=== PATIENT | female | born 1935 | race Caucasian/White ===

== ENCOUNTER → 2017-06-11 | Outpatient (CLI) | payer MEDICARE, BC ==
--- NOTE | 2017-06-11 10:17 | US ---
EXAMINATION TYPE: US venous doppler duplex LE RT DATE OF EXAM: 06/11/2017 10:01 AM COMPARISON: NONE CLINICAL HISTORY: Pain in Lower Limb M79.604. SIDE PERFORMED: Right TECHNIQUE: The lower extremity deep venous system is examined utilizing real time linear array sonog lisa with graded compression, doppler sonography and color-flow sonography. VESSELS IMAGED: External Iliac Vein (EIV) Common Femoral Vein Deep Femoral Vein Greater Saphenous Vein * Femoral Vein Popliteal Vein Small Saphenous Vein * Proximal Calf Veins (* superficial vessels) Right Leg: Negative for DVT,prominent superficial medial calf veins IMPRESSION: Grayscale, color doppler, spectral doppler imaging performed of the deep veins of the lo wer extremities. There is normal flow, compressibility, vascular waveforms. No evident deep venous thrombosis at or above the right knee. Varicose veins noted incidentally in the calf with possible th rombosis, question superficial venous thrombosis
[2017-06-11 10:42] LABS: CHCM 33.2; HCT 41.6 % (34.0-46.0); HDW 2.36; HGB 13.6 gm/dL (11.4-16.0); MCH 31.6 pg (25.0-35.0); MCHC 32.7 g/dL (31.0-37.0); MCV 96.9 fL (80.0-100.0); Mean Platelet Volume 7.7; RDW 13.8 % (11.5-15.5); WBC 7.4 k/uL (3.8-10.6)
[2017-06-11 10:55] LABS: ALT 35 U/L (9-52); AST 36 U/L (14-36); Alkaline Phosphatase 160 U/L (38-126); Anion Gap 11 mmol/L; Blood Urea Nitrogen 26 mg/dL (7-17); Calcium 9.9 mg/dL (8.4-10.2); Carbon Dioxide 26 mmol/L (22-30); Chloride 106 mmol/L (98-107); Cholesterol 126 mg/dL (<200); Glucose 99 mg/dL (74-99); HDL Cholesterol 46 mg/dL (40-60); Non-African American GFR(MDRD) 60 (>60 ml/min/1.73 sqM); Potassium 4.1 mmol/L (3.5-5.1); Sodium 143 mmol/L (137-145); Total Bilirubin 1.1 mg/dL (0.2-1.3); Total Protein 7.9 g/dL (6.3-8.2)
[2017-06-11 10:59] LABS: INR 2.2 (<1.2); Prothrombin Time 21.2 sec (9.0-12.0)
== END | disposition home or self-care (01) ==
LOC: RADUSWWP 09:31
PROVIDERS: ATTEND Family Medicine
DX: M79.604 Pain in right leg (principal); I48.2 Chronic atrial fibrillation; I10 Essential (primary) hypertension
CPT/HCPCS: 36415; 80053; 80061; 82306; 84439; 84443; 85027; 85610

== ENCOUNTER → 2018-04-29 | Outpatient (CLI) | payer MEDICARE, BC ==
[2018-04-29 16:47] LABS: HCT 39.3 % (34.0-46.0); HGB 12.7 gm/dL (11.4-16.0); MCH 30.8 pg (25.0-35.0); MCHC 32.5 g/dL (31.0-37.0); MCV 94.7 fL (80.0-100.0); Mean Platelet Volume 7.2; Platelet Count 207 k/uL (150-450); RBC 4.14 m/uL (3.80-5.40); RDW 13.2 % (11.5-15.5); WBC 6.6 k/uL (3.8-10.6)
== END | disposition home or self-care (01) ==
LOC: LABPAT 15:06
PROVIDERS: ATTEND Internal Medicine Cardiovascular Disease
DX: Z01.812 Encounter for preprocedural laboratory examination (principal); I48.91 Unspecified atrial fibrillation; I10 Essential (primary) hypertension; Z79.01 Long term (current) use of anticoagulants; Z79.899 Other long term (current) drug therapy; Z45.010 Encounter for checking and testing of cardiac pacemaker pulse generator [battery]
CPT/HCPCS: 36415; 80051; 82565; 82947; 84520; 85027

== ENCOUNTER → 2018-05-05 | Day surgery (SDC) | payer MEDICARE, BC ==
[2018-04-29 12:17] VITALS: BMI 26.4
[~2018-05-05] MED LIST: ACETAMINOPHEN TAB 325 MG TAB PO PRN; HYDROcodone/APAP 5-325MG 1 EACH TAB PO PRN; LIDOCAINE 1% (PF) 10MG/ML VIAL SQ ONE; SODIUM CHLORIDE 0.9% 1,000 ML IV SCH; ceFAZolin 1,000 MG in SODIUM CHLORIDE 0.9% IRRIGATIO 250 ML IRRIGATION ONE; ceFAZolin IN SWFI 2 GM/20 ML SYRINGE IVP ONE; fentaNYL (PF) 50 MCG/ML 2 ML AMP IVP ONE
[2018-05-05 06:50] VITALS: TEMP 97.7
[2018-05-05 07:08] LABS: INR 1.4 (<1.2); Prothrombin Time 13.4 sec (9.0-12.0)
--- NOTE | 2018-05-05 08:39 | P.PCN ---
Date of Procedure: 05/05/18 Preoperative Diagnosis: History of permanent pacemaker. Battery depletion Postoperative Diagnosis: The same Procedure(s) Performed: Replacement of the pulse generator Description of Procedure: HISTORY: This is a 82-year-old female with history of mitral and tricuspid valve repair, sick sinus syndrome status post permanent pacemaker implantation who has reached [facility]. Patient is advised to have battery replacement. CONSENT: I have discussed the risks and benefits as related to the above mentioned procedure and both sedation/analgesia as well as necessary blood product administration. The patient has indicated understanding and acceptance of the risks of the procedure discussed. PROCEDURE: Patient was brought to the lab in a fasting state. Patient was given IV Versed and fentanyl for sedation. The skin over the existing pulse generator was infiltrated with lidocaine. An incision was made in the skin and was deepened until the pectoral fascia was exposed. Hemostasis was obtained. The existing pulse generator was pulled out of the pocket. The leads were disconnected and were checked for thresholds. Conscious Sedation: Versed 0mg Fentanyl 12.5 g Duration 22 minutes THRESHOLDS: ATRIAL: Patient is in atrial fibrillation. Threshold could not be obtained VENTRICULAR: The minimal patient threshold is 0.9 V at pulse width of 0.4. The impedance is 489. The R-wave is 10.8 . THE LEADS: ATRIAL: This is manufactured by [employer]. Model number is 4135. Serial number is [id number]. VENTRICULAR: This is manufactured by [employer]. The model number is 4136. The serial number is [id number]. THE EXPLANTED DEVICE: This is manufactured by [employer]. The model number is [id number] and the serial number is [id number]. THE NEW DEVICE: This is manufactured by [employer]. Model number is [id number] and the serial number is [id number] The leads were then connected to a new pulse generator. Pacemaker seems to function normally. The pocket was irrigated with antibiotics. The pocket was closed in the usual fashion. Pectoral fascia was closed with 2-0 Prolene, the subcutaneous tissue was closed with 3-0 Prolene and the skin was closed with 4- 0 Prolene. Patient tolerated the procedure well . Patient will be monitored on the telemetry unit for 2-3 hours. If stable patient be discharged home later today. PLAN: Continue monitoring her. If stable, patient could be discharged home in about 24 hours. Prophylactic antibiotics to be continued. FALLOW UP: Follow-up with Dr. Duncan in one week.
[2018-05-05 10:12] VITALS: RESP 18
[2018-05-05 11:03] VITALS: BP 133/60; PULSE 61
== END | disposition home or self-care (01) ==
LOC: CATHEP 06:30
PROVIDERS: ATTEND Internal Medicine Cardiovascular Disease
DX: I49.5 Sick sinus syndrome (principal); Z45.010 Encounter for checking and testing of cardiac pacemaker pulse generator [battery]; I48.2 Chronic atrial fibrillation; I34.0 Nonrheumatic mitral (valve) insufficiency; I35.1 Nonrheumatic aortic (valve) insufficiency; Z79.01 Long term (current) use of anticoagulants; Z79.899 Other long term (current) drug therapy; Z88.6 Allergy status to analgesic agent; Z88.2 Allergy status to sulfonamides
CPT/HCPCS: 33228; 85610; C1785; J3010; J2001; J0690

== ENCOUNTER → 2018-07-17 | Outpatient (CLI) | payer MEDICARE, BC ==
[2018-07-17 11:14] LABS: HCT 39.9 % (34.0-46.0); HGB 13.3 gm/dL (11.4-16.0); MCH 31.7 pg (25.0-35.0); MCHC 33.3 g/dL (31.0-37.0); Mean Platelet Volume 7.3; Platelet Count 196 k/uL (150-450); RDW 12.7 % (11.5-15.5); WBC 6.4 k/uL (3.8-10.6)
[2018-07-17 11:21] LABS: Potassium 4.5 mmol/L (3.5-5.1)
--- NOTE | 2018-07-17 11:50 | XR ---
EXAMINATION TYPE: XR chest 2V DATE OF EXAM: 07/17/2018 COMPARISON: Prior chest x-ray March 30, 2010. HISTORY: History of open heart surgery with shortness of breath for one week. TECHNIQUE: Frontal and lateral views of the chest are obtained. FINDINGS: The osseous structures are demineralized. Dextroconvex scoliosis centered in the upper lum bar spine is seen. Overlying sternal wires are redemonstrated. There are 2 metallic cardiac valvular rings that are redemonstrated. There is persistent cardiomegaly with atherosclerotic thoracic aorta. There is chronic parenchymal change with small right pleural effusion redemonstrated. There is right basilar atelectasis and/or infiltrate. Left lung is clear. IMPRESSION: Chronic changes and cardiomegaly with small right pleural effusion and right basilar ate lectasis and/or infiltrate noted.
== END | disposition home or self-care (01) ==
LOC: LABWHC1 10:03
PROVIDERS: ATTEND Internal Medicine Cardiovascular Disease
DX: J90 Pleural effusion, not elsewhere classified (principal); I51.7 Cardiomegaly; R06.02 Shortness of breath; J98.11 Atelectasis; R91.8 Other nonspecific abnormal finding of lung field
CPT/HCPCS: 36415; 71046; 80051; 82565; 83880; 84520; 85027

== ENCOUNTER 2022-02-19 09:39 | Inpatient (IN) | payer MEDICARE, BC ==
[2022-02-19] MEDS ORDERED: SODIUM CHLORIDE 0.9% 500 ML 500 ML IV STA (10:14)
--- NOTE | 2022-02-19 10:27 | ED ---
Weakness HPI - General Chief complaint: Weakness Stated complaint: weakness Time Seen by Provider: 02/19/22 10:03 Source: patient, EMS, RN notes reviewed Mode of arrival: EMS Limitations: no limitations - History of Present Illness Initial comments: This is an 86-year-old female who presents to the emergency department for generalized weakness. Her granddaughter is with her at bedside, and states that this has been going on for approximately 3 months. She has lost about 30lbs, and is not willing to eat or drink much of anything. Patient states that she just does not feel hungry. Her family also has difficulty getting her out of the house because she has no energy. She's been evaluated by her primary care provider twice since this started, and had basic blood work done and a urinalysis. We do not have these results available to us. Does states that she finished an antibiotic for a UTI about a week ago. Also reports pain in her bilateral flanks, and wonders if her UTI has not completely resolved. She does live alone. Patient denies any fevers, chills, sore throat, visual changes, cough, dyspnea, chest pain, palpitations, abdominal pain, nausea, vomiting, diarrhea, constipation, dysuria, hematuria, or headaches. MD Complaint: generalized weakness, lack of energy Onset/Timin -: month(s) - Related Data Home Medications Medication Instructions Recorded Confirmed Furosemide [Lasix] 40 mg PO DAILY 12/09/14 02/19/22 Potassium Chloride [Klor-Con 20] 10 meq PO Q48H 12/09/14 02/19/22 Warfarin [Coumadin] 4 mg PO MOFR@1800 12/09/14 02/19/22 Multivit-Min/FA/Lycopen/Lutein 1 tab PO DAILY 04/29/18 02/19/22 [Centrum Silver Tablet] Warfarin Sodium [Coumadin] 2 mg PO SUTUWETHSA@1800 04/29/18 02/19/22 ALPRAZolam [Xanax] 0.25 mg PO TID PRN 02/19/22 02/19/22 Metoprolol Tartrate [Lopressor] 100 mg PO BID 02/19/22 02/19/22 Allergies Allergy/AdvReac Type Severity Reaction Status Date / Time Sulfa (Sulfonamide Allergy Rash/Hives Verified 02/19/22 13:38 Antibiotics) ibuprofen [From Motrin] AdvReac Itching Verified 02/19/22 13:38 ondansetron [From Zofran] AdvReac Nausea Verified 02/19/22 13:38 Review of Systems ROS Statement: Those systems with pertinent positive or pertinent negative responses have been documented in the HPI. ROS Other: All systems not noted in ROS Statement are negative. Past Medical History Past Medical History: Atrial Fibrillation, Heart Failure Additional Past Medical History / Comment(s): PACEMAKER. SEE H&Ellie. History of Any Multi-Drug Resistant Organisms: None Reported Past Surgical History: Pacemaker Additional Past Surgical History / Comment(s): OPEN HEART, MITRAL VALVE REPAIRED 2009. PACEMAKER 2010 - [employer]. Past Anesthesia/Blood Transfusion Reactions: No Reported Reaction Type of Cardiac Device: Biventricular Pacemaker Device Placement Date:: 2009 Past Psychological History: No Psychological Hx Reported Smoking Status: Never smoker Past Alcohol Use History: None Reported Past Drug Use History: None Reported - Past Family History Mother Family Medical History: No Reported History General Exam Limitations: no limitations General appearance: alert, in no apparent distress Head exam: Present: atraumatic, normocephalic, normal inspection Neck exam: Present: normal inspection. Absent: tenderness, meningismus, lymphadenopathy Respiratory exam: Present: normal lung sounds bilaterally. Absent: respiratory distress, wheezes, rales, rhonchi, stridor Cardiovascular Exam: Present: regular rate, normal rhythm, normal heart sounds. Absent: systolic murmur, diastolic murmur, rubs, gallop, clicks GI/Abdominal exam: Present: soft, tenderness (LLQ), normal bowel sounds. Abs ent: distended, guarding, rebound, rigid Neurological exam: Present: alert, oriented X3, CN II-XII intact Psychiatric exam: Present: normal affect, normal mood Skin exam: Present: warm, dry, intact, normal color. Absent: rash Course Vital Signs 02/19/22 02/19/22 09:51 16:03 Temperature 97.5 F L Pulse Rate 75 60 Respiratory 16 18 Rate Blood Pressure 142/75 146/58 O2 Sat by Pulse 96 95 Oximetry EKG Findings - EKG Comments: EKG Findings:: Electronic ventricular pacemaker. Ventricular rate 61 bpm, QRS duration 174 ms, QTC 527 ms. Medical Decision Making - Medical Decision Making This is an 86-year-old female who presents to the emergency department for weakness. Given that this has been a long-standing issue, will obtain a large panel of lab work, as well as proceed with imaging in the event there is an underlying process contributing to her symptoms. Patient was also noted to be markedly tender in the left lower quadrant. CT scan of the abdomen and pelvis revealed enteritis, colitis, possible cirrhosis, cholelithiasis, and cardiomegaly. Computed tomography scan and chest x-ray revealed right-sided pleural effusion that was unchanged when compared to prior imaging. Additionally, there is mention of a possible pulmonary arterial hypertension, which the patient has not been previously diagnosed with. She does have an elevated BNP of 3180 indicating a possible mild CHF exacerbation. D-dimer was obtained given the shortness of breath and weakness, this was corrected for the patient's age and when corrected, a value of 0.66 was found to be normal for her. We will admit the patient for CHF exacerbation and generalized weakness. Will also consider skilled nursing or rehabilitation placement given the safety iss ue of the patient living alone. This case was discussed in detail with the attending ED physician. Presentation, findings, and treatment plan discussed in detail as well. - Lab Data Result diagrams: 02/19/22 10:26 02/19/22 10:26 Lab Results 02/19/22 02/19/22 02/19/22 Range/Units 10:26 10:26 10:26 WBC 4.5 (3.8-10.6) k/uL RBC 3.99 (3.80-5.40) m/uL Hgb 13.0 (11.4-16.0) gm/dL Hct 40.8 (34.0-46.0) % MCV 102.3 H (80.0-100.0) fL MCH 32.6 (25.0-35.0) pg MCHC 31.8 (31.0-37.0) g/dL RDW 12.6 (11.5-15.5) % Plt Count 153 (150-450) k/uL MPV 8.2 Neutrophils % 65 % Lymphocytes % 21 % Monocytes % 7 % Eosinophils % 3 % Basophils % 1 % Neutrophils # 2.9 (1.3-7.7) k/uL Lymphocytes # 0.9 L (1.0-4.8) k/uL Monocytes # 0.3 (0-1.0) k/uL Eosinophils # 0.2 (0-0.7) k/uL Basophils # 0.0 (0-0.2) k/uL Macrocytosis Slight ESR Cancelled PT 29.0 H (9.0-12.0) sec INR 2.9 H (<1.2) APTT 32.3 H (22.0-30.0) sec D-Dimer 0.66 H (<0.60) mg/L FEU Sodium (137-145) mmol/L Potassium (3.5-5.1) mmol/L Chloride (98-107) mmol/L Carbon Dioxide (22-30) mmol/L Anion Gap mmol/L BUN (7-17) mg/dL Creatinine (0.52-1.04) mg/dL Est GFR (CKD-EPI)AfAm (>60 ml/min/1.73 sqM) Est GFR (CKD-EPI)NonAf (>60 ml/min/1.73 sqM) Glucose (74-99) mg/dL Plasma Lactic Acid Felipe (0.7-2.0) mmol/L Calcium (8.4-10.2) mg/dL Total Bilirubin (0.2-1.3) mg/dL AST (14-36) U/L ALT (4-34) U/L Alkaline Phosphatase (38-126) U/L Troponin I (0.000-0.034) ng/mL C-Reactive Protein (<1.0) mg/dL NT-Pro-B Natriuret Pep pg/mL Total Protein (6.3-8.2) g/dL Albumin (3.5-5.0) g/dL TSH (0.465-4.680) mIU/L Urine Color Yellow Urine Appearance Clear (Clear) Urine pH 6.0 (5.0-8.0) Ur Specific [place] 1.016 (1.001-1.035) Urine Protein Trace H (Negative) Urine Glucose (UA) Negative (Negative) Urine Ketones Trace H (Negative) Urine Blood Negative (Negative) Urine Nitrite Negative (Negative) Urine Bilirubin Negative (Negative) Urine Urobilinogen <2.0 (<2.0) mg/dL Ur Leukocyte Esterase Large H (Negative) Urine WBC 56 H (0-5) /hpf Ur Squamous Epith Cells 1 (0-4) /hpf Hyaline Casts 3 H (0-2) /lpf Urine Mucus Rare H (None) /hpf Coronavirus (PCR) (Not Detectd) Influenza Type A RNA (Not Detectd) Influenza Type B (PCR) (Not Detectd) 02/19/22 02/19/22 02/19/22 Range/Units 10:26 10:26 10:26 WBC (3.8-10.6) k/uL RBC (3.80-5.40) m/uL Hgb (11.4-16.0) gm/dL Hct (34.0-46.0) % MCV (80.0-100.0) fL MCH (25.0-35.0) pg MCHC (31.0-37.0) g/dL RDW (11.5-15.5) % Plt Count (150-450) k/uL MPV Neutrophils % % Lymphocytes % % Monocytes % % Eosinophils % % Basophils % % Neutrophils # (1.3-7.7) k/uL Lymphocytes # (1.0-4.8) k/uL Monocytes # (0-1.0) k/uL Eosinophils # (0-0.7) k/uL Basophils # (0-0.2) k/uL Macrocytosis ESR PT (9.0-12.0) sec INR (<1.2) APTT (22.0-30.0) sec D-Dimer (<0.60) mg/L FEU Sodium 140 (137-145) mmol/L Potassium 4.0 (3.5-5.1) mmol/L Chloride 111 H (98-107) mmol/L Carbon Dioxide 23 (22-30) mmol/L Anion Gap 6 mmol/L BUN 30 H (7-17) mg/dL Creatinine 0.89 (0.52-1.04) mg/dL Est GFR (CKD-EPI)AfAm 67 (>60 ml/min/1.73 sqM) Est GFR (CKD-EPI)NonAf 58 (>60 ml/min/1.73 sqM) Glucose 106 H (74-99) mg/dL Plasma Lactic Acid Felipe 1.3 (0.7-2.0) mmol/L Calcium 9.2 (8.4-10.2) mg/dL Total Bilirubin 1.1 (0.2-1.3) mg/dL AST 43 H (14-36) U/L ALT 18 (4-34) U/L Alkaline Phosphatase 132 H (38-126) U/L Troponin I 0.029 (0.000-0.034) ng/mL C-Reactive Protein 0.6 (<1.0) mg/dL NT-Pro-B Natriuret Pep pg/mL Total Protein 7.3 (6.3-8.2) g/dL Albumin 4.0 (3.5-5.0) g/dL TSH 1.160 (0.465-4.680) mIU/L Urine Color Urine Appearance (Clear) Urine pH (5.0-8.0) Ur Specific [place] (1.001-1.035) Urine Protein (Negative) Urine Glucose (UA) (Negative) Urine Ketones (Negative) Urine Blood (Negative) Urine Nitrite (Negative) Urine Bilirubin (Negative) Urine Urobilinogen (<2.0) mg/dL Ur Leukocyte Esterase (Negative) Urine WBC (0-5) /hpf Ur Squamous Epith Cells (0-4) /hpf Hyaline Casts (0-2) /lpf Urine Mucus (None) /hpf Coronavirus (PCR) (Not Detectd) Influenza Type A RNA (Not Detectd) Influenza Type B (PCR) (Not Detectd) 02/19/22 02/19/22 02/19/22 Range/Units 10:26 10:26 10:26 WBC (3.8-10.6) k/uL RBC (3.80-5.40) m/uL Hgb (11.4-16.0) gm/dL Hct (34.0-46.0) % MCV (80.0-100.0) fL MCH (25.0-35.0) pg MCHC (31.0-37.0) g/dL RDW (11.5-15.5) % Plt Count (150-450) k/uL MPV Neutrophils % % Lymphocytes % % Monocytes % % Eosinophils % % Basophils % % Neutrophils # (1.3-7.7) k/uL Lymphocytes # (1.0-4.8) k/uL Monocytes # (0-1.0) k/uL Eosinophils # (0-0.7) k/uL Basophils # (0-0.2) k/uL Macrocytosis ESR PT (9.0-12.0) sec INR (<1.2) APTT (22.0-30.0) sec D-Dimer (<0.60) mg/L FEU Sodium (137-145) mmol/L Potassium (3.5-5.1) mmol/L Chloride (98-107) mmol/L Carbon Dioxide (22-30) mmol/L Anion Gap mmol/L BUN (7-17) mg/dL Creatinine (0.52-1.04) mg/dL Est GFR (CKD-EPI)AfAm (>60 ml/min/1.73 sqM) Est GFR (CKD-EPI)NonAf (>60 ml/min/1.73 sqM) Glucose (74-99) mg/dL Plasma Lactic Acid Felipe (0.7-2.0) mmol/L Calcium (8.4-10.2) mg/dL Total Bilirubin (0.2-1.3) mg/dL AST (14-36) U/L ALT (4-34) U/L Alkaline Phosphatase (38-126) U/L Troponin I (0.000-0.034) ng/mL C-Reactive Protein (<1.0) mg/dL NT-Pro-B Natriuret Pep 3180 pg/mL Total Protein (6.3-8.2) g/dL Albumin (3.5-5.0) g/dL TSH (0.465-4.680) mIU/L Urine Color Urine Appearance (Clear) Urine pH (5.0-8.0) Ur Specific [place] (1.001-1.035) Urine Protein (Negative) Urine Glucose (UA) (Negative) Urine Ketones (Negative) Urine Blood (Negative) Urine Nitrite (Negative) Urine Bilirubin (Negative) Urine Urobilinogen (<2.0) mg/dL Ur Leukocyte Esterase (Negative) Urine WBC (0-5) /hpf Ur Squamous Epith Cells (0-4) /hpf Hyaline Casts (0-2) /lpf Urine Mucus (None) /hpf Coronavirus (PCR) Not Detected (Not Detectd) Influenza Type A RNA Not Detected (Not Detectd) Influenza Type B (PCR) Not Detected (Not Detectd) 02/19/22 Range/Units 11:51 WBC (3.8-10.6) k/uL RBC (3.80-5.40) m/uL Hgb (11.4-16.0) gm/dL Hct (34.0-46.0) % MCV (80.0-100.0) fL MCH (25.0-35.0) pg MCHC (31.0-37.0) g/dL RDW (11.5-15.5) % Plt Count (150-450) k/uL MPV Neutrophils % % Lymphocytes % % Monocytes % % Eosinophils % % Basophils % % Neutrophils # (1.3-7.7) k/uL Lymphocytes # (1.0-4.8) k/uL Monocytes # (0-1.0) k/uL Eosinophils # (0-0.7) k/uL Basophils # (0-0.2) k/uL Macrocytosis ESR 10 PT (9.0-12.0) sec INR (<1.2) APTT (22.0-30.0) sec D-Dimer (<0.60) mg/L FEU Sodium (137-145) mmol/L Potassium (3.5-5.1) mmol/L Chloride (98-107) mmol/L Carbon Dioxide (22-30) mmol/L Anion Gap mmol/L BUN (7-17) mg/dL Creatinine (0.52-1.04) mg/dL Est GFR (CKD-EPI)AfAm (>60 ml/min/1.73 sqM) Est GFR (CKD-EPI)NonAf (>60 ml/min/1.73 sqM) Glucose (74-99) mg/dL Plasma Lactic Acid Felipe (0.7-2.0) mmol/L Calcium (8.4-10.2) mg/dL Total Bilirubin (0.2-1.3) mg/dL AST (14-36) U/L ALT (4-34) U/L Alkaline Phosphatase (38-126) U/L Troponin I (0.000-0.034) ng/mL C-Reactive Protein (<1.0) mg/dL NT-Pro-B Natriuret Pep pg/mL Total Protein (6.3-8.2) g/dL Albumin (3.5-5.0) g/dL TSH (0.465-4.680) mIU/L Urine Color Urine Appearance (Clear) Urine pH (5.0-8.0) Ur Specific [place] (1.001-1.035) Urine Protein (Negative) Urine Glucose (UA) (Negative) Urine Ketones (Negative) Urine Blood (Negative) Urine Nitrite (Negative) Urine Bilirubin (Negative) Urine Urobilinogen (<2.0) mg/dL Ur Leukocyte Esterase (Negative) Urine WBC (0-5) /hpf Ur Squamous Epith Cells (0-4) /hpf Hyaline Casts (0-2) /lpf Urine Mucus (None) /hpf Coronavirus (PCR) (Not Detectd) Influenza Type A RNA (Not Detectd) Influenza Type B (PCR) (Not Detectd) - Radiology Data Radiology results: report reviewed, image reviewed Disposition Clinical Impression: CHF exacerbation, Weakness generalized Disposition: ADMITTED IP TO THIS HOSP
[2022-02-19 10:43] LABS: Basophils % (A) 1 %; Eosinophils # (A) 0.2 k/uL (0-0.7); Eosinophils % (A) 3 %; HCT 40.8 % (34.0-46.0); Lymphocytes # (A) 0.9 k/uL (1.0-4.8); Lymphocytes % (A) 21 %; MCH 32.6 pg (25.0-35.0); MCHC 31.8 g/dL (31.0-37.0); MCV 102.3 fL (80.0-100.0); Macrocytosis Slight; Mean Platelet Volume 8.2; Monocytes # (A) 0.3 k/uL (0-1.0); Monocytes % (A) 7 %; Neutrophils # (A) 2.9 k/uL (1.3-7.7); Neutrophils % (A) 65 %; Platelet Count 153 k/uL (150-450); RBC 3.99 m/uL (3.80-5.40); RDW 12.6 % (11.5-15.5); WBC 4.5 k/uL (3.8-10.6)
[2022-02-19 10:56] LABS: ALT 18 U/L (4-34); AST 43 U/L (14-36); African American GFR (CKD) 67 (>60 ml/min/1.73 sqM); Alkaline Phosphatase 132 U/L (38-126); Anion Gap 6 mmol/L; Blood Urea Nitrogen 30 mg/dL (7-17); C Reactive Protein 0.6 mg/dL (<1.0); Calcium 9.2 mg/dL (8.4-10.2); Carbon Dioxide 23 mmol/L (22-30); Chloride 111 mmol/L (98-107); Glucose 106 mg/dL (74-99); Non-African American GFR(CKD) 58 (>60 ml/min/1.73 sqM); Sodium 140 mmol/L (137-145); Total Bilirubin 1.1 mg/dL (0.2-1.3); Total Protein 7.3 g/dL (6.3-8.2)
[2022-02-19 11:15] LABS: INR 2.9 (<1.2)
[2022-02-19 11:16] LABS: Partial Thromboplastin Time 32.3 sec (22.0-30.0)
--- NOTE | 2022-02-19 12:03 | CT ---
EXAMINATION TYPE: CT abdomen pelvis w con DATE OF EXAM: 02/19/2022 COMPARISON: NONE HISTORY: 78-year-old female LLQ abdominal pain TECHNIQUE: Contiguous axial scanning of the abdomen and pelvis following administration of 80 ml Omni paque 300 IV contrast. Delayed images through the kidneys and coronal/sagittal reconstructions perfo rmed. CT DLP: 556 mGycm Automated exposure control for dose reduction was used. FINDINGS: Median sternotomy wires. Right atrial and right ventricular AICD leads. Mitral and tricuspid annulopl asty rings. Heart is moderately enlarged. Small right pleural effusion with adjacent patchy opacity. Additional patchy opacity and groundglass at the left base. Nodular, cirrhotic morphology of the liver. No accelerated area of washout or definite hypervascular lesion is identified within the liver. Mild periportal edema noted. Portal venous system patent. Approximately 4 gallstones within the gallbladder measuring up to 1 cm. Right kidney malrotated. Bilateral renal cortical thinning suggests chronic medical renal disease. Ex tra renal pelvis on the right. Adrenal glands, spleen, and pancreas within normal limits. Some prominent left periaortic lymph nodes at the level of the kidney measuring up to 9 mm short axis probably reactive/post inflammatory. Old thickening along the fundus and proximal body of the stomach, axial image 20. Correlate to exclud e gastritis. There is a 3.4 cm diverticulum projecting superiorly from the third portion of the duode num, coronal image 53. No dilated small bowel, free fluid, or free air. However, there are prominent fluid-filled small bonnie l loops throughout the mid and lower abdomen and pelvis and liquid stool throughout the colon. Left-s ided colonic diverticulosis. No pericolonic inflammatory changes seen. Moderate circumferential bladder wall thickening. Uterus and ovaries are visualized. Not well delinea sanju from adjacent bowel loops. No abnormal fluid collection in the pelvis or pelvic lymphadenopathy. Bones: Baastrup's disease. Moderate degenerative disc disease mid and lower thoracic spine. Facet art hropathy mid to lower thoracic spine. Osteopenia. IMPRESSION: 1. PROMINENT FLUID-FILLED SMALL BOWEL LOOPS MID AND LOWER ABDOMEN AND PELVIS AND ADDITIONAL FLUID THR OUGHOUT THE COLON. CORRELATE FOR DIARRHEAL STATE/ENTERITIS. 2. ADDITIONAL MUCOSAL FOLD THICKENING ALONG THE GASTRIC FUNDUS AND PROXIMAL BODY. UNDERLYING GASTRITI S NOT EXCLUDED. 3. CIRCUMFERENTIAL BLADDER WALL THICKENING MAY BE CHRONIC FOR THE PATIENT. CORRELATE WITH PATIENT'S S YMPTOMS AND URINALYSIS TO EXCLUDE CYSTITIS. 4. LEFT-SIDED COLONIC DIVERTICULOSIS. NO DEFINITE ACUTE DIVERTICULITIS. 5. LIMITED EXCRETION OF CONTRAST FROM THE KIDNEYS ON DELAYED PHASE. FINDINGS MAY REPRESENT ALPHONSE. 6. NODULAR LIVER CONTOUR SUGGESTING CIRRHOSIS. CHOLELITHIASIS. 7. MODERATE CARDIOMEGALY. SMALL RIGHT PLEURAL EFFUSION WITH ADJACENT ATELECTASIS AND/OR CONSOLIDATION /PNEUMONIA. CLINICALLY CORRELATE.
[2022-02-19 12:04] LABS: Appearance,Urine Clear (Clear); Bilirubin,Urine Negative (Negative); Blood,Urine Negative (Negative); Color,Urine Yellow; Glucose,Urine (UA) Negative (Negative); Hyaline Casts,Urine 3 /lpf (0-2); Ketones,Urine Trace (Negative); Leukocyte Esterase,Urine Large (Negative); Mucus,Urine Rare /hpf; Nitrite,Urine Negative (Negative); Protein,Urine Trace (Negative); Specific Gravity,Urine 1.016 (1.001-1.035); Squamous Epithelial Cell,Urine 1 /hpf (0-4); Urobilinogen,Urine <2.0 mg/dL (<2.0); WBC,Urine 56 /hpf (0-5)
--- NOTE | 2022-02-19 12:33 | XR ---
EXAMINATION TYPE: XR chest 2V DATE OF EXAM: 02/19/2022 COMPARISON: 07/17/2018 TECHNIQUE: PA and lateral views submitted. HISTORY: Shortness of breath FINDINGS: Hyperinflation compatible COPD with right lower lobe infiltrate and small effusion. Heart is enlarged and there is postsurgical change and cardiac device. No pneumothorax. Diffuse interstitial pattern. Diffuse osteopenia with arthropathy of the shoulders. Pulmonary arteries enlarged correlate for pulmo nary arterial hypertension. Linear changes are stable from prior exam extending from the right hilum into the right upper lobe most typical of chronic atelectasis or scarring. IMPRESSION: 1. COPD, severe cardiomegaly and right lower lobe infiltrate and pleural effusion similar to 2018. Co rrelate for pulmonary arterial hypertension. 2. Mild prominence of the interstitium correlate for venous congestion and mild CHF.
[2022-02-19] MEDS ORDERED: HYDROcodone/APAP 5-325MG 1 EACH TAB PO PRN (14:26)
[2022-02-19] MEDS ORDERED: ACETAMINOPHEN TAB 325 MG TAB PO PRN (14:26)
[2022-02-19] MEDS ORDERED: oxyCODONE-APAP 5-325MG 1 EACH TAB PO PRN (14:26)
[2022-02-19] MEDS ORDERED: NALOXONE 0.4 MG/ML 1 ML VIAL IV PRN (14:26)
[2022-02-19] MEDS ORDERED: ALPRAZolam 0.25 MG TAB PO PRN (16:38)
--- NOTE | 2022-02-19 16:41 | P.HPIM ---
History of Present Illness H&P Date: 02/19/22 Chief Complaint: Generalized weakness 86-year-old woman with medical history of congestive heart failure, valvular atrial fibrillation, paroxysmal, history of mitral valve repair presented with generalized weakness. Patient says that she's been feeling weak for several months as well as having weight loss. In addition, she just recently got over a bout of diarrhea, which she had for approximately 1 week. She was also recently treated for urinary tract infection. She says that she just feels like she is unable to ambulate on her own. Today, she needed two people's help in order to get into the car to get to the emergency room for further evaluation. She denies fevers, chills, nausea, vomiting, chest pain, palpitations, syncope, presyncope, cough, dyspnea, abdominal pain, constipation, dysuria, dyschezia, numbness of extremities. In the emergency room, patient is afebrile, 142/75, heart rate 75, 96% on room air. CBC is unremarkable. Chemistries are remarkable for elevated BUN to 30. LFTs are remarkable for elevated AST of 43, alkaline phosphatase is elevated at 132. TSH was 1.16. BNP was 3180. Initial troponin was 0.029. UA shows trace blood, trace ketones, large amount leukocyte esterase, 56 white blood cells. Covid, influenza A/B are negative. CT of the abdomen/pelvis shows prominent left periaortic lymph nodes at the level of the kidney measuring up to 9 mm, mucosal full thickening of the gastric fundus as well as proximal body, promi nent fluid-filled small bowel loops and lower abdomen pelvis, nodular liver, moderate cardiomegaly with a small right-sided pleural effusion and adjacent atelectasis. Chest x-ray shows COPD, severe cardiomegaly, right lower lobe infiltrate and pleural effusion which looks similar presentation 2018. EKG shows ventricular paced rhythm. All Systems reviewed and pertinent positives and negatives noted in HPI, all other symptoms are negative Gen: awake, alert HEENT: normocephalic, atraumatic, good hearing acuity, moist mucous membranes Resp: good air exchange, breathing comfortably with no accessory muscle use CVS: good distal perfusion x 4, GI: soft, NTTP, ND : no SPT, no CVAT, renee catheter not present MSK: no pitting edema, no clubbing Neuro: non-focal, moving all extremities Psych: cooperative, euthymic mood Labs and imaging reviewed as above Assessment/plan: Generalized weakness Complicated urinary tract infection Diarrhea -Admit to observation, telemetry -Ceftriaxone -Follow up urine culture -Rule out C. diff -PT consult History of congestive heart failure History of mitral valve repair History of paroxysmal atrial fibrillation -Home medications reviewed and reconciled -Echo, pending Patient is a no code DVT prophylaxis is covered with therapeutic Coumadin Past Medical History Past Medical History: Atrial Fibrillation, Heart Failure Additional Past Medical History / Comment(s): PACEMAKER. SEE DR Chou&Ellie. History of Any Multi-Drug Resistant Organisms: None Reported Past Surgical History: Pacemaker Additional Past Surgical History / Comment(s): OPEN HEART, MITRAL VALVE REPAIRED 2009. PACEMAKER 2009 - [employer]. Past Anesthesia/Blood Transfusion Reactions: No Reported Reaction Type of Cardiac Device: Biventricular Pacemaker Device Placement Date:: 2009 Past Psychological History: No Psychological Hx Reported Smoking Status: Never smoker Past Alcohol Use History: None Reported Past Drug Use History: None Reported - Past Family History Mother Family Medical History: No Reported History Medications and Allergies Home Medications Medication Instructions Recorded Confirmed Type Furosemide [Lasix] 40 mg PO DAILY 12/09/14 02/19/22 History Potassium Chloride [Klor-Con 20] 10 meq PO Q48H 12/09/14 02/19/22 History Warfarin [Coumadin] 4 mg PO MOFR@1800 12/09/14 02/19/22 History Multivit-Min/FA/Lycopen/Lutein 1 tab PO DAILY 04/29/18 02/19/22 History [Centrum Silver Tablet] Warfarin Sodium [Coumadin] 2 mg PO SUTUWETHSA@1800 04/29/18 02/19/22 History ALPRAZolam [Xanax] 0.25 mg PO TID PRN 02/19/22 02/19/22 History Metoprolol Tartrate [Lopressor] 100 mg PO BID 02/19/22 02/19/22 History Allergies Allergy/AdvReac Type Severity Reaction Status Date / Time Sulfa (Sulfonamide Allergy Rash/Hives Verified 02/19/22 13:38 Antibiotics) ibuprofen [From Motrin] AdvReac Itching Verified 02/19/22 13:38 ondansetron [From Zofran] AdvReac Nausea Verified 02/19/22 13:38 Physical Exam Osteopathic Statement: *. No significant issues noted on an osteopathic structural exam other than those noted in the History and Physical/Consult. Vitals: Vital Signs Temp Pulse Resp BP Pulse Ox 02/19/22 16:03 60 18 146/58 95 02/19/22 09:51 97.5 F L 75 16 142/75 96 Intake and Output 02/19/22 02/19/22 02/19/22 06:59 14:59 22:59 Other: Weight 53.07 kg Results CBC & Chem 7: 02/19/22 10:26 02/19/22 10:26 Labs: Abnormal Lab Results - Last 24 Hours (Table) 02/19/22 02/19/22 02/19/22 Range/Units 10:26 10:26 10:26 MCV 102.3 H (80.0-100.0) fL Lymphocytes # 0.9 L (1.0-4.8) k/uL PT 29.0 H (9.0-12.0) sec INR 2.9 H (<1.2) APTT 32.3 H (22.0-30.0) sec D-Dimer 0.66 H (<0.60) mg/L FEU Chloride (98-107) mmol/L BUN (7-17) mg/dL Glucose (74-99) mg/dL AST (14-36) U/L Alkaline Phosphatase (38-126) U/L Urine Protein Trace H (Negative) Urine Ketones Trace H (Negative) Ur Leukocyte Esterase Large H (Negative) Urine WBC 56 H (0-5) /hpf Hyaline Casts 3 H (0-2) /lpf Urine Mucus Rare H (None) /hpf 02/19/22 Range/Units 10:26 MCV (80.0-100.0) fL Lymphocytes # (1.0-4.8) k/uL PT (9.0-12.0) sec INR (<1.2) APTT (22.0-30.0) sec D-Dimer (<0.60) mg/L FEU Chloride 111 H (98-107) mmol/L BUN 30 H (7-17) mg/dL Glucose 106 H (74-99) mg/dL AST 43 H (14-36) U/L Alkaline Phosphatase 132 H (38-126) U/L Urine Protein (Negative) Urine Ketones (Negative) Ur Leukocyte Esterase (Negative) Urine WBC (0-5) /hpf Hyaline Casts (0-2) /lpf Urine Mucus (None) /hpf
[2022-02-19] MEDS ORDERED: WARFARIN 2 MG TAB PO ONE (18:00)
[2022-02-19] MEDS: METOPROLOL TARTRATE 50 MG TAB PO SCH (20:42)
[2022-02-20 06:35] LABS: Prothrombin Time 29.7 sec (9.0-12.0)
[2022-02-20] MEDS: MULTIVITAMINS, THERA 1 EACH TAB PO SCH (08:53)
[2022-02-20] MEDS: METOPROLOL TARTRATE 50 MG TAB PO SCH ×2 (08:53→21:07)
[2022-02-20] MEDS: FUROSEMIDE 40 MG TAB PO SCH (08:53)
[2022-02-20] MEDS: POTASSIUM CHLORIDE ER 10 MEQ TAB.ER.PRT PO SCH (08:54)
[2022-02-20 09:35] LABS: African American GFR (CKD) 76.3 (60.0-200.0); Anion Gap 9.2 mmol/L (10.00-18.00); BUN/Creat Ratio 23.75 Ratio (12.00-20.00); Calcium 9.2 mg/dL (8.7-10.3); Carbon Dioxide 22.8 mmol/L (20.0-27.5); Magnesium 1.8 mg/dL (1.5-2.4); Non-African American GFR(CKD) 65.8 (60.0-200.0); Potassium 3.7 mmol/L (3.5-5.5)
--- NOTE | 2022-02-20 10:32 | CA ---
Transthoracic Echo Report Name: Kristin Case Age: 86 Gender: F : 1935 Exam Date: 02/20/2022 08:00 Exam Location: [facility] Ht (in): 61 Wt (lb): 120 Ordering Physician: Nidia Viveros MD Attending/Referring Phys: Button Inspector Charisma Ramires RDCS Procedure CPT: Indications: elevated bnp Cardiac Hx: Hx of MV repair and pacemaker. Technical Quality: Fair Contrast 1: Total Dose (mL): Contrast 2: Total Dose (mL): MEASUREMENTS (Male / Female) Normal Values 2D ECHO LV Diastolic Diameter PLAX 4.3 cm 4.2 - 5.9 / 3.9 - 5.3 cm LV Systolic Diameter PLAX 1.7 cm IVS Diastolic Thickness 0.9 cm 0.6 - 1.0 / 0.6 - 0.9 cm LVPW Diastolic Thickness 1.0 cm 0.6 - 1.0 / 0.6 - 0.9 cm LV Relative Wall Thickness 0.4 RV Internal Dim ED PLAX 3.4 cm M-MODE Aortic Root Diameter MM 3.0 cm LA Systolic Diameter MM 4.3 cm LA Ao Ratio MM 1.5 MV E Point Septal Separation 0.6 cm AV Cusp Separation MM 1.9 cm DOPPLER MV Peak Velocity 208.5 cm/s MV Peak Gradient 17.4 mmHg MV Mean Velocity 72.0 cm/s MV Mean Gradient 3.3 mmHg MV Velocity Time Integral 59.5 cm MV Area PHT 1.6 cm??? Mitral E Point Velocity 194.1 cm/s Mitral A Point Velocity 34.5 cm/s Mitral E to A Ratio 5.6 MV Deceleration Time 480.2 ms MV E' Velocity 3.8 cm/s Mitral E to MV E' Ratio 51.5 TR Peak Velocity 320.5 cm/s TR Peak Gradient 41.1 mmHg Right Ventricular Systolic Press 53.2 mmHg FINDINGS Left Ventricle Grade 2 diastolic dysfunction. Normal Left ventricular size, wall thickness, . Left ventricular ejection fraction is estimated at 55-60 %. Right Ventricle There is right ventricular enlargement consistent with right ventricular volume overload. Moderate to severe pulmonary hypertension. Right Atrium Normal right atrial size. Left Atrium Mildly increased left atrial area. Mitral Valve Mv repair. Mitral valve thickened. [id number] mitral stenosis. Trace mitral regurgitation. Aortic Valve Trileaflet aortic valve. Tricuspid Valve Structurally normal tricuspid valve without significant stenosis. Mild tricuspid regurgitation. Pulmonic Valve Structurally normal pulmonic valve without significant stenosis. There is no pulmonic regurgitation. Pericardium Normal pericardium without effusion. Aorta Normal aortic root dimension. CONCLUSIONS Normal left ventricular dimension and systolic function Severely dilated right ventricle Severely dilated left atrium Repaired mitral valve with evidence of moderate mitral stenosis Aortic sclerosis with mild aortic insufficiency Severe pulmonary hypertension Please see above for further details Previewed by: Dr. Rodney Verma MD (Electronically Signed) Final Date: 20 Feb 2022 10:31
[2022-02-20 11:29] LABS: Basophils # (A) 0.05 X 10*3/uL (0.00-0.10); Basophils % (A) 1.1 %; Eosinophils # (A) 0.21 X 10*3/uL (0.04-0.35); Eosinophils % (A) 4.4 %; HCT 36.8 % (37.2-46.3); Immature Grans, Automated 0.4 %; Lymphocytes # (A) 1.24 X 10*3/uL (0.90-5.00); Lymphocytes % (A) 26.2 %; MCH 32.3 pg (27.0-32.0); MCHC 32.6 g/dL (32.0-37.0); MCV 99.2 fL (80.0-97.0); Mean Platelet Volume 10.9 fL (9.5-12.2); Monocytes # (A) 0.62 X 10*3/uL (0.20-1.00); Monocytes % (A) 13.1 %; NRBC Per 100 WBC 0 /100 WBCS (0.0-0.0); Neutrophils # (A) 2.59 X 10*3/uL (1.80-7.70); Neutrophils % (A) 54.8 %; Platelet Count 145 X 10*3/uL (140-440); RBC 3.71 X 10*6/uL (4.10-5.20); RDW 13.2 % (11.5-14.5); WBC 4.73 X 10*3/uL (4.50-10.00)
--- NOTE | 2022-02-20 14:39 | P.PN ---
Subjective Progress Note Date: 02/20/22 Hospital course: Patient is a very pleasant 86-year-old female with a past medical history of CAD with previous mitral valve repair, congestive heart failure, and paroxysmal atrial fibrillation on anticoagulation with Coumadin. Patient presented to the emergency department on 02/19/22 for chief complaint of generalized weakness. Patient reports overall decreased appetite, weakness, and weight loss beginning approximately one month ago but states at that time she was diagnosed with a complicated UTI and underwent treatment course with antibiotics, this was followed by a bout of diarrhea lasting approximately one week, and patient states over the past week she has had significant increase in her overall fatigue, body aches and weakness. Patient reported that she is no longer able to independently perform the activities of daily living as she was 1 week ago. She underwent full evaluation in the emergency department. CBC was unremarkable. CMP revealed hyperchloremia with chloride of 111, prerenal azotemia with BUN of 30, elevated AST of 43, elevated alkaline phosphatase of 132, troponin 0.029 and proBNP of 3180. TSH was normal findings at 1.160. Urinalysis was positive for infection. Influenza A, influenza B, Covid, and C. diff all negative. chest x-ray revealing hyperinflation compatible with COPD with right lower lobe infiltrate and pleural effusion similar to 2018 imaging consistent with pulmonary arterial hypertension. EKG showing ventricular paced rhythm at [address] abdomen and pelvis revealing prominent fluid-filled small bowel loops mid and lower abdomen and pelvis with additional fluid throughout the colon correlating for enteritis, nodular liver suggestive of cirrhosis, and left sided colonic diverticulosis negative for acute diverticulitis. Physical exam: Patient seen and fully evaluated at bedside this morning and again this afternoon. Patient continues to report persistent diarrhea as well as overall weakness, fatigue, and body aches.repeat morning labs showing no significant abnormalities.received call this afternoon to reassess patient had bedside. Patient was found to have a large tick embedded into right lateral calf. Tick was removed using tweezers and sent to lab for analysis. patient to be started on doxycycline 100 mg twice daily prophylactically for treatment of Lyme disease pending stat Lyme antibodies IgG and IgM to be obtained. Vital signs reviewed and stable. General: Nontoxic, no distress and appears stated age. Derm: Skin warm and dry, normal coloration for ethnicity. Head: Atraumatic, normocephalic and symmetric. Eyes: EOMs intact, no lid lag, and anicteric sclera Mouth: no lip lesions, mucus membranes moist Cardiovascular: regular rate and rhythm with normal S1S2, systolic murmur, positive posterior tibial pulses bilaterally, and cap refill < 2 seconds. Lungs: Respirations even, regular, and unlabored on room air. Lungs CTA bilaterally, no rhonchi, no rales, no wheezing, and no accessory muscle usage. Abdominal: soft, nontender to palpation, no guarding, no appreciable organomegaly Ext: ROM intact. No gross muscle atrophy, no edema, no contractures Neuro: Speech clear, face symmetrical and CN II-XII grossly intact with no noted focal neuro deficits Psych: Alert and oriented to person, place, time, and situation. Appropriate and pleasant affect. Assessment and Plan of Care: Generalized weakness and body aches Rule out Lyme disease Complicated urinary tract infection Diarrhea -Treatment with IV antibiotic Rocephin for UTI, pending urine culture results -Tick removed from right lateral calf, tick was sent to lab for analysis. -Stat Lyme antibodies IgG/IgM to be obtained. -Patient started on doxycycline prophylactically for treatment of Lyme disease pending further results. -GI was consulted secondary to persistent diarrhea of unclear etiology. -patient received IV fluid hydration in the ED. Paroxysmal atrial fibrillation -Continue anticoagulation with Coumadin. Therapeutic INR 3.0. CODE STATUS: DO NOT RESUSCITATE/DO NOT INTUBATE DVT prophylaxis: Coumadin Discussed with: patient, patient's daughter, and RN Anticipated discharge date: likely tomorrow Anticipated discharge place: home with homecare versus SNF A total of 38 minutes was spent on the care of this complex patient more than 50% of the time was spent in counseling and care coordination. Objective - Vital Signs Vital signs: Vital Signs Temp 97.8 F 02/20/22 07:00 Pulse 62 02/20/22 07:00 Resp 18 02/20/22 07:00 BP 126/66 02/20/22 07:00 Pulse Ox 93 L 02/20/22 07:00 Intake & Output 02/19/22 02/20/22 02/20/22 18:59 06:59 18:59 Weight 53.07 kg 53.07 kg Other: Voiding Method Toilet # Voids 1 - Labs CBC & Chem 7: 02/20/22 05:35 02/20/22 05:35 Labs: Abnormal Lab Results - Last 24 Hours (Table) 02/20/22 02/20/22 02/20/22 Range/Units 05:35 05:35 05:35 RBC 3.71 L (4.10-5.20) X 10*6/uL Hct 36.8 L (37.2-46.3) % MCV 99.2 H (80.0-97.0) fL MCH 32.3 H (27.0-32.0) pg PT 29.7 H (9.0-12.0) sec INR 3.0 H (<1.2) Chloride 110 H (96-109) mmol/L Anion Gap 9.20 L (10.00-18.00) mmol/L BUN/Creatinine Ratio 23.75 H (12.00-20.00) Ratio Microbiology - Last 24 Hours (Table) 02/19/22 10:26 Urine Culture - Preliminary Urine,Voided Assessment and Plan Assessment: This documentation was completed by the Nurse Practitioner. History, physical examination including assessment and plan were only completed by Nurse Practitioner and was NOT evaluated by myself the attending physician including all plan of care including discharge planning and documentation. I did NOT participate or have any communication regarding the patient, including orders, imaging, diagnostic work up, consultations, communication with registered RN/deburr technician and discharge planning/instructions. I will be co-signing this documentation as this is a requirement per [facility] and agreement.
[2022-02-20] MEDS: DOXYCYCLINE 100 MG CAP PO SCH ×2 (14:51→21:07)
[2022-02-20] MEDS ORDERED: WARFARIN 1 MG TAB PO ONE (18:00)
[2022-02-21 06:41] LABS: Prothrombin Time 29.6 sec (9.0-12.0)
[2022-02-21] MEDS: FUROSEMIDE 40 MG TAB PO SCH (08:24)
[2022-02-21] MEDS: METOPROLOL TARTRATE 50 MG TAB PO SCH ×2 (08:24→19:51)
[2022-02-21] MEDS: DOXYCYCLINE 100 MG CAP PO SCH ×2 (08:24→19:51)
[2022-02-21] MEDS: MULTIVITAMINS, THERA 1 EACH TAB PO SCH (08:25)
[2022-02-21] MEDS ORDERED: ALPRAZolam 0.25 MG TAB PO PRN (11:25)
--- NOTE | 2022-02-21 11:25 | P.CN ---
Psychiatric Consult - . Consult date: 02/21/22 Consult:: 02/21/22 10:19 IDENTIFYING DATA: This patient is a 86-year-old female currently lives with her son, she has 5 kids, they live in a house. She was admitted for generalized weakness to the hospital. REASON FOR REFERRAL: Psychiatry was consulted for "depression" HISTORY OF PRESENT ILLNESS: The patient presented to the hospital on 02/19 for generalized weakness. Patient was brought in by her granddaughter. Patient apparently has been having ongoing weakness for about 3 months now. Apparently she has been having a decrease in her weight loss about 30 pounds so far. Apparently patient has been having poor oral intake. Patient was found to have a urinary tract infection which she is taking antibiotics for. CT of her abdomen and pelvis showed that patient has enteritis colitis and possible cirrhosis. Patient was seen today by ad copy writer for psychiatric evaluation at the bedside. Patient appeared to be fairly appropriate and directable during conversation. She was polite with ad copy writer and directable. She spoke about having a chronic history of depression since her 20s or 30s. She states that she also has anxiety associated with her depression however that is fairly mild at this time. She claims that she has never been on an antidepressant before and only on Xanax which was given by her PCP. She states that the Xanax has not been helping her mood. She claims that she has anhedonia and worthlessness at times during her depressive episodes. She states that she would like to try a new antidepressant at this time. She states that her sleep has been on and off however average is around 7 hours a night. She claims that her appetite has been fairly poor. At this time patient denies any suicidal or homical ideations, intent or plan. Patient denies any auditory, visual hallucinations and denies any paranoia or delusions. Patients admits to using no recreational drugs or cigarettes. PAST PSYCHIATRIC HISTORY: Patient has a a history of depression and anxiety. Patient is currently on Xanax when necessary. Patient denies any previous psychiatric hospitalizations. Patient denies any psychiatric outpatient follow- up. She claims that she used to have a counselor in the past however none currently. Patient denies any history of suicide attempts in the past. Past Medical History: Atrial Fibrillation, Heart Failure Additional Past Medical History / Comment(s): PACEMAKER. ALLERGIES: as per EMR. CHEMICAL DEPENDENCY HISTORY: as per HPI. FAMILY PSYCHIATRIC/SUBSTANCE USE HISTORY: Claims that her daughter has bipolar disorder. SOCIAL HISTORY: Patient was born and raised in [facility]. She claims that she completed high school. She states that she has 5 kids, currently lives with one of her sons in a house. 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 She denies any legal history. MENTAL STATUS EXAM: General Appearance: Patient appears to be thin, stated age is alert, pleasant, and cooperative. Patient appears to have fair hygiene and grooming wearing hos pital gown with fair eye contact. Behavior: Patient is calmly lying in bed without any agitated behavior. Speech: Patient's speech is fluent and nonpressured. Mood/Affect: Patient reports their mood is "depressed", affect is congruent Suicidality/Homicidality: Patient denies having any suicidal or homicidal ideation intent or plan. Perceptions: Patient denies any visual hallucinations and denies any auditory hallucinations Though content/process: There is no evidence of any delusional thought content and thought process is linear and goal-directed. Memory and concentration: AOX3, grossly intact for the purposes of this session. 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 -Delirium precautions recommended with patient including - avoiding use of narcotics and KEY PUNCH TEACHER sedatives, limit anticholinergic medications when possible, frequent re-orientation, minimize use of restraints, open window shades during the day and close them at night -Would recommend the following medication changes/additions: Please attempt to reduce Xanax use over time as this can cause potential for abuse, confusion, overdose or possible falls. Will start melatonin 3 mg daily at bedtime for sleep. Also start Lexapro 5 mg daily for mood/anxiety. -reinforcing metal worker to provide patient with outpatient mental health/psychiatry resources for appropriate follow up upon discharge -Communicated plan to patient's nurse -Psychiatry will sign off at this time -Please contact with any questions.
--- NOTE | 2022-02-21 12:42 | P.PN ---
Subjective Progress Note Date: 02/21/22 Hospital course: Patient is a very pleasant 86-year-old female with a past medical history of CAD with previous mitral valve repair, congestive heart failure, and paroxysmal atrial fibrillation on anticoagulation with Coumadin. Patient presented to the emergency department on 02/19/22 for chief complaint of generalized weakness. Patient reports overall decreased appetite, weakness, and weight loss beginning approximately one month ago but states at that time she was diagnosed with a complicated UTI and underwent treatment course with antibiotics, this was followed by a bout of diarrhea lasting approximately one week, and patient states over the past week she has had significant increase in her overall fatigue, body aches and weakness. Patient reported that she is no longer able to independently perform the activities of daily living as she was 1 week ago. She underwent full evaluation in the emergency department. CBC was unremarkable. CMP revealed hyperchloremia with chloride of 111, prerenal azotemia with BUN of 30, elevated AST of 43, elevated alkaline phosphatase of 132, troponin 0.029 and proBNP of 3180. TSH was normal findings at 1.160. Urinalysis was positive for infection. Influenza A, influenza B, Covid, and C. diff all negative. chest x-ray revealing hyperinflation compatible with COPD with right lower lobe infiltrate and pleural effusion similar to 2018 imaging consistent with pulmonary arterial hypertension. EKG showing ventricular paced rhythm at [address] abdomen and pelvis revealing prominent fluid-filled small bowel loops mid and lower abdomen and pelvis with additional fluid throughout the colon correlating for enteritis, nodular liver suggestive of cirrhosis, and left sided colonic diverticulosis negative for acute diverticulitis. On 02/20/22, patient was found to have a large tick embedded into right lateral calf. Tick was removed using tweezers and sent to lab for analysis. Patient was started on doxycycline 100 mg twice daily prophylactically for treatment of Lyme disease pending stat Lyme antibodies IgG and IgM to be obtained. Physical exam: Patient reports continued weakness and persistent diarrhea. Patient also r eporting significant depression, consult was placed to psychiatry who started patient on Lexapro 5 mg daily. Order was placed for GI consult awaiting their evaluation. Secondary to patient's reports of persistent intractable diarrhea and weakness, patient is being transferred from observation to inpatient status at this time pending further evaluation. Patient care being transferred to [facility] for continued care. Vital signs reviewed and stable. General: Nontoxic, no distress and appears stated age. Derm: Skin warm and dry, normal coloration for ethnicity. Head: Atraumatic, normocephalic and symmetric. Eyes: EOMs intact, no lid lag, and anicteric sclera Mouth: no lip lesions, mucus membranes moist Cardiovascular: regular rate and rhythm with normal S1S2, systolic murmur, positive posterior tibial pulses bilaterally, and cap refill < 2 seconds. Lungs: Respirations even, regular, and unlabored on room air. Lungs CTA bilaterally, no rhonchi, no rales, no wheezing, and no accessory muscle usage. Abdominal: soft, nontender to palpation, no guarding, no appreciable organomegaly Ext: ROM intact. No gross muscle atrophy, no edema, no contractures Neuro: Speech clear, face symmetrical and CN II-XII grossly intact with no noted focal neuro deficits Psych: Alert and oriented to person, place, time, and situation. Appropriate and pleasant affect. Assessment and Plan of Care: Generalized weakness and body aches Rule out Lyme disease UTI ruled out, urine culture negative Diarrhea -Treatment with IV antibiotic Rocephin for UTI, pending urine culture results -Tick removed from right lateral calf, tick was sent to lab for analysis. -Stat Lyme antibodies IgG/IgM to be obtained. -Patient started on doxycycline prophylactically for treatment of Lyme disease pending further results. -GI was consulted secondary to persistent diarrhea of unclear etiology. -patient received IV fluid hydration in the ED. Paroxysmal atrial fibrillation -Continue anticoagulation with Coumadin. Therapeutic INR 3.0. Depression -Psychiatry consulted and started patient on Lexapro 5 mg daily CODE STATUS: DO NOT RESUSCITATE/DO NOT INTUBATE DVT prophylaxis: Coumadin Discussed with: patient and RN Anticipated discharge date: Pending clinical course, patient is reporting persistent intractable diarrhea Anticipated discharge place: home with homecare A total of 34 minutes was spent on the care of this complex patient more than 50% of the time was spent in counseling and care coordination. Objective - Vital Signs Vital signs: Vital Signs Temp 97.2 F L 02/21/22 07:00 Pulse 65 02/21/22 07:00 Resp 16 02/21/22 07:00 BP 131/65 02/21/22 07:00 Pulse Ox 96 02/21/22 07:00 Intake & Output 05/17/22 05/18/22 05/18/22 18:59 06:59 18:59 Intake Total 50 150 Output Total 1 Balance 49 150 Intake: Intake, IV Titration 50 Amount cefTRIAXone 1 gm In 50 Sodium Chloride 0.9% 50 ml @ 100 mls/hr IVPB Q24HR [facility] Rx#:[id number] Oral 150 Output: Urine 1 Other: Voiding Method Toilet # Voids 1 - Labs CBC & Chem 7: 02/21/22 06:01 02/21/22 06:01 Labs: Abnormal Lab Results - Last 24 Hours (Table) 02/21/22 Range/Units 06:01 PT 29.6 H (9.0-12.0) sec INR 3.0 H (<1.2) Microbiology - Last 24 Hours (Table) 02/19/22 10:26 Urine Culture - Final Urine,Voided
[2022-02-21 13:19] LABS: HCT 38.4 % (34.0-46.0); HGB 12.3 gm/dL (11.4-16.0); MCV 102.9 fL (80.0-100.0); Macrocytosis Slight; Mean Platelet Volume 9.3; Platelet Count 141 k/uL (150-450); RBC 3.73 m/uL (3.80-5.40); RDW 12.8 % (11.5-15.5); WBC 4.8 k/uL (3.8-10.6)
[2022-02-21 13:28] LABS: ALT 17 U/L (4-34); AST 36 U/L (14-36); African American GFR (CKD) 72 (>60 ml/min/1.73 sqM); Albumin 3.5 g/dL (3.5-5.0); Albumin/Globulin Ratio 1.1; Alkaline Phosphatase 116 U/L (38-126); Anion Gap 6 mmol/L; Blood Urea Nitrogen 18 mg/dL (7-17); Calcium 8.9 mg/dL (8.4-10.2); Carbon Dioxide 24 mmol/L (22-30); Chloride 111 mmol/L (98-107); Globulin 3.1 g/dL; Glucose 100 mg/dL (74-99); Magnesium 1.4 mg/dL (1.6-2.3); Non-African American GFR(CKD) 62 (>60 ml/min/1.73 sqM); Potassium 3.6 mmol/L (3.5-5.1); Sodium 141 mmol/L (137-145); Total Bilirubin 0.7 mg/dL (0.2-1.3); Total Protein 6.6 g/dL (6.3-8.2)
--- NOTE | 2022-02-21 13:57 | P.CONS ---
History of Present Illness - Reason for Consult Consult date: 02/21/22 Diarrhea, cirrhosis of the liver Requesting physician: Cooper Gilbert - Chief Complaint Weakness - History of Present Illness This is a very pleasant 86-year-old female who was brought in by her daughter for generalized weakness 2 days ago. She has a past medical history of atrial fibrillation on Coumadin and heart failure. Patient states she's been in to see her PCP a couple times over the last 1-2 months for generalized weakness. He diagnosed her with a urinary tract infection and started her on some antibiotics. She states it did not help. She's continued to have this weakness. She was also having intermittent loose stools. She had a CT of the abdomen and pelvis without showed possible enteritis/gastritis. Gastroenterology was consulted for possible antritis/gastritis. States that she has 1-2 bowel movements which were loose however now are more formed and soft. She denies any blood in her stool. She denies any abdominal pain. States that she's had decreased appetite and has lost approximately 20-30 pounds over the last 1 year duration. She denies any difficulty with eating or swallowing. States that nothing tastes good suction does not eat as much as she used to. WBC 4.8 hemoglobin 12.3 hematocrit 38 platelet count 141,000 INR 3.0 sodium 141 potassium 3.6 BUN 18 creatinine 0.84 total bilirubin 0.7 AST 36 ALT 17 alkaline phosphatase 116. C. difficile negative. Chronic virus PCR not detected, influenza type a an influenza type B not detected Review of Systems REVIEW OF SYSTEMS: CARDIOPULMONARY: No chest pain or shortness of breath. Gastrointestinal: No abdominal pain. No nausea or vomiting. No hematemesis, coffee-ground emesis. No rectal bleeding, or melena. Intermittent diarrhea/loose stools. GENITOURINARY: No dysuria or hematuria. MUSCULOSKELETAL: Reports normal range of motion. SKIN: No rashes. No jaundice. ENDOCRINE: No chills, fevers. 20-30 pound weight loss over the last 1 year dura tion No polydipsia or polyuria. PSYCHIATRIC: Unremarkable. NEUROLOGY: No change in mental status. Denies dizziness, headache. ENT: Vision unremarkable. CONSTITUTIONAL: Increased generalized weakness. Decreased appetite, weight loss 20-30 pounds over the last 1 year duration.. Past Medical History Past Medical History: Atrial Fibrillation, Heart Failure Additional Past Medical History / Comment(s): PACEMAKER. SEE DR Mahajan. History of Any Multi-Drug Resistant Organisms: None Reported Past Surgical History: Pacemaker Additional Past Surgical History / Comment(s): OPEN HEART, MITRAL VALVE REPAIRED 2009. PACEMAKER 2009 - [employer] Past Anesthesia/Blood Transfusion Reactions: No Reported Reaction Type of Cardiac Device: Biventricular Pacemaker Device Placement Date:: 2009 Past Psychological History: No Psychological Hx Reported Smoking Status: Never smoker Past Alcohol Use History: None Reported Past Drug Use History: None Reported - Past Family History Mother Family Medical History: No Reported History Medications and Allergies Home Medications Medication Instructions Recorded Confirmed Type Furosemide [Lasix] 40 mg PO DAILY 12/09/14 02/19/22 History Potassium Chloride [Klor-Con 20] 10 meq PO Q48H 12/09/14 02/19/22 History Warfarin [Coumadin] 4 mg PO MOFR@1800 12/09/14 02/19/22 History Multivit-Min/FA/Lycopen/Lutein 1 tab PO DAILY 04/29/18 02/19/22 History [Centrum Silver Tablet] Warfarin Sodium [Coumadin] 2 mg PO SUTUWETHSA@1800 04/29/18 02/19/22 History ALPRAZolam [Xanax] 0.25 mg PO TID PRN 02/19/22 02/19/22 History Metoprolol Tartrate [Lopressor] 100 mg PO BID 02/19/22 02/19/22 History Allergies Allergy/AdvReac Type Severity Reaction Status Date / Time Sulfa (Sulfonamide Allergy Rash/Hives Verified 02/19/22 13:38 Antibiotics) ibuprofen [From Motrin] AdvReac Itching Verified 02/19/22 13:38 ondansetron [From Zofran] AdvReac Nausea Verified 02/19/22 13:38 Physical Exam Vitals: Vital Signs Temp Pulse Resp BP Pulse Ox 02/21/22 07:00 97.2 F L 65 16 131/65 96 02/21/22 02:00 59 L 17 02/21/22 01:25 98.4 F 59 L 17 113/67 94 L 02/20/22 20:00 60 18 02/20/22 19:36 97.8 F 60 18 110/63 93 L 02/20/22 14:41 97.9 F 74 18 125/67 93 L Intake and Output 02/20/22 02/21/22 02/21/22 22:59 06:59 14:59 Intake Total 150 Balance 150 Intake: Oral 150 Other: Voiding Method Toilet # Voids 1 General appearance: The patient is alert, oriented, appears in no acute distress. HET: Head is normocephalic and atraumatic. Conjunctiva pink. Sclera anicteric. Neck: Supple without lymphadenopathy. Trachea midline. Heart: S1 S2. Regular rate and rhythm. Lungs: Clear to auscultation. Abdomen: Soft, nontender, nondistended with bowel sounds. No guarding or rigidity. Skin: No rashes. No jaundice. Extremities: Normal skin color and turgor. No pedal edema. Neurological: No focal deficits. Alert and oriented x3. Results CBC & Chem 7: 02/21/22 06:01 02/21/22 06:01 Labs: Abnormal Lab Results - Last 24 Hours (Table) 02/20/22 02/21/22 Range/Units 05:35 06:01 RBC 3.71 L (4.10-5.20) X 10*6/uL Hct 36.8 L (37.2-46.3) % MCV 99.2 H (80.0-97.0) fL MCH 32.3 H (27.0-32.0) pg PT 29.6 H (9.0-12.0) sec INR 3.0 H (<1.2) Microbiology - Last 24 Hours (Table) 02/19/22 10:26 Urine Culture - Final Urine,Voided Comments: CAT scan abdomen and pelvis: Prominent fluid-filled small bowel loops mid and lower abdomen and pelvis additional fluid throughout the colon. Correlate for diarrheal state/enteritis. Additional mucosal fold thickening along the gastric fundus and proximal body. Underlying gastritis not excluded. Circumferential bladder wall thickening may be chronic for patient correlate with patient's symptoms and urinalysis to exclude cystitis. Left-sided colonic diverticulosis with no definite acute diverticulitis. Limited excretion of contrast from kidneys on delayed phase findings may represent AK I. Nodular liver contour suggests cirrhosis. cholelithiasis. Moderate cardiomegaly small right pleural effusion with adjacent atelectasis and/or consolidation/pneumonia. Clinically correlate. Assessment and Plan (1) Diarrhea Narrative/Plan: 86-year-old female with a history of atrial fibrillation on Coumadin presented to the emergency department as directed by her family for generalized weakness over the last 1-2 months duration. She has been following with her PCP who in itially diagnosed her with urinary tract infection and started her on antibiotics. Patient states that she's continued to have weakness lack of energy. She has lack of appetite and decreased food intake due to nothing tastes well. She states she's lost 20-30 pounds last 1 month duration. States that she's had intermittent diarrhea however it's more formed at this time and soft. No blood in her stool. Unknown etiology at this time, could be infectious. CAT scan does reveal possible antritis/gastritis. C. difficile was negative. Will obtain other stool cultures. Consider possible colonoscopy, at this time patient is stating she does not want to undergo a colonoscopy. Current Visit: Yes Status: Acute Code(s): R19.7 - DIARRHEA, UNSPECIFIED SNOMED Code(s): 71057663 (2) Weakness generalized Current Visit: Yes Status: Acute Code(s): R53.1 - WEAKNESS SNOMED Code(s): 91724377 (3) Atrial fibrillation Current Visit: Yes Status: Acute Code(s): I48.91 - UNSPECIFIED ATRIAL FIBRILLATION SNOMED Code(s): 20984741 Plan: 1. Continue symptomatic and supportive care 2. Continue medical management 3. Stool cultures ordered 4. Diet as tolerated 5. Patient states diarrhea has improved in stool is more formed. Discussed possibility of colonoscopy, patient at this time does not want to proceed. Thank you for this consultation, we will continue to monitor. The above dictated assessment and findings were discussed with Dr. Duncan. The impression and plan of care have been directed as dictated.
[2022-02-21] MEDS: ESCITALOPRAM 5 MG TAB PO SCH (14:49)
[2022-02-21] MEDS: WARFARIN 2 MG TAB PO SCH (17:14)
[2022-02-21] MEDS: MELATONIN 3 MG TABLET PO SCH (19:51)
[2022-02-22 06:57] LABS: INR 2.8 (<1.2); Prothrombin Time 27.5 sec (9.0-12.0)
[2022-02-22] MEDS: ESCITALOPRAM 5 MG TAB PO SCH (07:52)
[2022-02-22] MEDS: DOXYCYCLINE 100 MG CAP PO SCH ×2 (07:52→22:09)
[2022-02-22] MEDS: MULTIVITAMINS, THERA 1 EACH TAB PO SCH (07:53)
[2022-02-22] MEDS: FUROSEMIDE 40 MG TAB PO SCH (07:53)
[2022-02-22] MEDS: POTASSIUM CHLORIDE ER 10 MEQ TAB.ER.PRT PO SCH (07:53)
[2022-02-22] MEDS: METOPROLOL TARTRATE 50 MG TAB PO SCH (07:53)
[2022-02-22 09:24] LABS: HCT 37.1 % (37.2-46.3); HGB 11.9 g/dL (12.0-15.0); MCH 31.6 pg (27.0-32.0); MCHC 32.1 g/dL (32.0-37.0); MCV 98.7 fL (80.0-97.0); Mean Platelet Volume 10.7 fL (9.5-12.2); NRBC Per 100 WBC 0 /100 WBCS (0.0-0.0); Platelet Count 151 X 10*3/uL (140-440); RBC 3.76 X 10*6/uL (4.10-5.20); RDW 13.2 % (11.5-14.5); WBC 5.83 X 10*3/uL (4.50-10.00)
[2022-02-22 09:28] LABS: African American GFR (CKD) 73.5 (60.0-200.0); Albumin 3.9 g/dL (3.8-4.9); Albumin/Globulin Ratio 1.43 (1.60-3.17); Anion Gap 11.4 mmol/L (10.00-18.00); BUN/Creat Ratio 21.58 Ratio (12.00-20.00); Blood Urea Nitrogen 17.8 mg/dL (9.0-27.0); Calcium 9.2 mg/dL (8.7-10.3); Carbon Dioxide 22.6 mmol/L (20.0-27.5); Globulin 2.8 g/dL (1.6-3.3); Magnesium 1.3 mg/dL (1.5-2.4); Non-African American GFR(CKD) 63.4 (60.0-200.0); Potassium 3.6 mmol/L (3.5-5.5); Total Bilirubin 0.8 mg/dL (0.30-1.20); Total Protein 6.7 g/dL (6.2-8.2)
[2022-02-22] MEDS: LOPERAMIDE 2 MG CAP PO PRN ×2 (13:41→22:15)
--- NOTE | 2022-02-22 14:58 | P.CONS ---
History of Present Illness - Reason for Consult Consult date: 02/22/22 Diarrhea Requesting physician: Cooper Gilbert - Chief Complaint Weakness - History of Present Illness This is a very pleasant 86-year-old female who was brought in by her daughter for generalized weakness 2 days ago. She has a past medical history of atrial fibrillation on Coumadin and heart failure. Patient states she's been in to see her PCP a couple times over the last 1-2 months for generalized weakness. He diagnosed her with a urinary tract infection and started her on some antibiotics. She states it did not help. She's continued to have this weakness. She was also having intermittent loose stools. She had a CT of the abdomen and pelvis without showed possible enteritis/gastritis. Gastroenterology was consulted for possible antritis/gastritis. States that she has 1-2 bowel movements which were loose however now are more formed and soft. She denies any blood in her stool. She denies any abdominal pain. States that she's had decreased appetite and has lost approximately 20-30 pounds over the last 1 year duration. She denies any difficulty with eating or swallowing. States that nothing tastes good suction does not eat as much as she used to. WBC 4.8 hemoglobin 12.3 hematocrit 38 platelet count 141,000 INR 3.0 sodium 141 potassium 3.6 BUN 18 creatinine 0.84 total bilirubin 0.7 AST 36 ALT 17 alkaline phosphatase 116. C. difficile negative. Chronic virus PCR not detected, influenza type a an influenza type B not detected Review of Systems REVIEW OF SYSTEMS: CARDIOPULMONARY: No chest pain or shortness of breath. Gastrointestinal: No abdominal pain. No nausea or vomiting. No hematemesis, coffee-ground emesis. No rectal bleeding, or melena. Intermittent diarrhea/loose stools. GENITOURINARY: No dysuria or hematuria. MUSCULOSKELETAL: Reports normal range of motion. SKIN: No rashes. No jaundice. ENDOCRINE: No chills, fevers. 20-30 pound weight loss over the last 1 year duration No polydipsia or polyuria. PSYCHIATRIC: Unremarkable. NEUROLOGY: No change in mental status. Denies dizziness, headache. ENT: Vision unremarkable. CONSTITUTIONAL: Increased generalized weakness. Decreased appetite, weight loss 20-30 pounds over the last 1 year duration.. Past Medical History Past Medical History: Atrial Fibrillation, Heart Failure Additional Past Medical History / Comment(s): PACEMAKER. SEE DR Mahajan. History of Any Multi-Drug Resistant Organisms: None Reported Past Surgical History: Pacemaker Additional Past Surgical History / Comment(s): OPEN HEART, MITRAL VALVE REPAIRED 2009. PACEMAKER 2009 - [employer]. Past Anesthesia/Blood Transfusion Reactions: No Reported Reaction Type of Cardiac Device: Biventricular Pacemaker Device Placement Date:: 2009 Past Psychological History: No Psychological Hx Reported Smoking Status: Never smoker Past Alcohol Use History: None Reported Past Drug Use History: None Reported - Past Family History Mother Family Medical History: No Reported History Medications and Allergies Home Medications Medication Instructions Recorded Confirmed Type Furosemide [Lasix] 40 mg PO DAILY 12/09/14 02/19/22 History Potassium Chloride [Klor-Con 20] 10 meq PO Q48H 12/09/14 02/19/22 History Warfarin [Coumadin] 4 mg PO MOFR@1800 12/09/14 02/19/22 History Multivit-Min/FA/Lycopen/Lutein 1 tab PO DAILY 04/29/18 02/19/22 History [Centrum Silver Tablet] Warfarin Sodium [Coumadin] 2 mg PO SUTUWETHSA@1800 04/29/18 02/19/22 History ALPRAZolam [Xanax] 0.25 mg PO TID PRN 02/19/22 02/19/22 History Metoprolol Tartrate [Lopressor] 100 mg PO BID 02/19/22 02/19/22 History Allergies Allergy/AdvReac Type Severity Reaction Status Date / Time Sulfa (Sulfonamide Allergy Rash/Hives Verified 02/19/22 13:38 Antibiotics) ibuprofen [From Motrin] AdvReac Itching Verified 02/19/22 13:38 ondansetron [From Zofran] AdvReac Nausea Verified 02/19/22 13:38 Physical Exam Vitals: Vital Signs Temp Pulse Resp BP Pulse Ox 02/22/22 07:00 98.1 F 60 16 129/77 95 02/22/22 00:27 64 18 02/22/22 00:25 95 02/22/22 00:20 64 18 121/76 88 L 02/21/22 20:00 58 L 02/21/22 19:12 97.7 F 58 L 20 116/70 93 L 02/21/22 15:00 97.5 F L 58 L 18 113/67 96 Intake and Output 02/21/22 02/22/22 02/22/22 22:59 06:59 14:59 Intake Total 372 250 222 Balance 372 250 222 Intake: Oral 372 250 222 Other: Voiding Method Toilet # Voids 1 3 # Bowel Movements 2 General appearance: The patient is alert, oriented, appears in no acute distress. HET: Head is normocephalic and atraumatic. Conjunctiva pink. Sclera anicteric. Neck: Supple without lymphadenopathy. Trachea midline. Heart: S1 S2. Regular rate and rhythm. Lungs: Clear to auscultation. Abdomen: Soft, nontender, nondistended with bowel sounds. No guarding or rigidity. Skin: No rashes. No jaundice. Extremities: Normal skin color and turgor. No pedal edema. Neurological: No focal deficits. Alert and oriented x3. Results CBC & Chem 7: 02/22/22 05:45 02/22/22 05:45 Labs: Abnormal Lab Results - Last 24 Hours (Table) 02/22/22 02/22/22 02/22/22 Range/Units 05:45 05:45 05:45 RBC 3.76 L (4.10-5.20) X 10*6/uL Hgb 11.9 L (12.0-15.0) g/dL Hct 37.1 L (37.2-46.3) % MCV 98.7 H (80.0-97.0) fL PT 27.5 H (9.0-12.0) sec INR 2.8 H (<1.2) BUN/Creatinine Ratio 21.58 H (12.00-20.00) Ratio Magnesium 1.3 L (1.5-2.4) mg/dL Albumin/Globulin Ratio 1.43 L (1.60-3.17) g/dL Microbiology - Last 24 Hours (Table) 02/22/22 10:04 Stool Culture - Preliminary Stool Comments: CAT scan abdomen and pelvis: Prominent fluid-filled small bowel loops mid and lower abdomen and pelvis additional fluid throughout the colon. Correlate for diarrheal state/enteritis. Additional mucosal fold thickening along the gastric fundus and proximal body. Underlying gastritis not excluded. Circumferential bladder wall thickening may be chronic for patient correlate with patient's symptoms and urinalysis to exclude cystitis. Left-sided colonic diverticulosis with no definite acute diverticulitis. Limited excretion of contrast from kidneys on delayed phase findings may represent AK I. Nodular liver contour suggests cirrhosis. cholelithiasis. Moderate cardiomegaly small right pleural effusion with adjacent atelectasis and/or consolidation/pneumonia. Clinically correlate. Assessment and Plan (1) Diarrhea Narrative/Plan: 86-year-old female with a history of atrial fibrillation on Coumadin presented to the emergency department as directed by her family for generalized weakness over the last 1-2 months duration. She has been following with her PCP who initially diagnosed her with urinary tract infection and started her on antibiotics. Patient states that she's continued to have weakness lack of energy. She has lack of appetite and decreased food intake due to nothing tastes well. She states she's lost 20-30 pounds last 1 month duration. States that she's had intermittent diarrhea however it's more formed at this time and soft. No blood in her stool. Unknown etiology at this time, could be infectious. CAT scan does reveal possible antritis/gastritis. C. difficile was negative. Will obtain other stool cultures. Consider possible colonoscopy, at this time patient is stating she does not want to undergo a colonoscopy. Current Visit: Yes Status: Acute Code(s): R19.7 - DIARRHEA, UNSPECIFIED SNOMED Code(s): 84691681 (2) Weakness generalized Current Visit: Yes Status: Acute Code(s): R53.1 - WEAKNESS SNOMED Code(s): 18333189 (3) Atrial fibrillation Current Visit: Yes Status: Acute Code(s): I48.91 - UNSPECIFIED ATRIAL FIBRILLATION SNOMED Code(s): 24323815 Plan: 1. Continue symptomatic and supportive care 2. Continue medical management 3. Stool cultures ordered 4. Diet as tolerated 5. Celiac panel ordered 6. Imodium as needed 7. No plans on endoscopic evaluation at this time Thank you for this consultation, we will continue to monitor. Dr. Karmen Duncan I agree with the dictator's note, documented as a scribe by Rajwinder Butler.
--- NOTE | 2022-02-22 16:25 | P.PN ---
Progress Note - Text Progress Note Date: 02/22/22 Hospital course: Patient is a very pleasant 86-year-old female, follows with Dr. Eric with a past medical history of CAD with previous mitral valve repair, congestive heart failure, and paroxysmal atrial fibrillation on anticoagulation with Coumadin. Patient presented to the emergency department on 02/19/22 for chief complaint of generalized weakness. Patient reports overall decreased appetite, weakness, and weight loss beginning approximately one month ago but states at that time she was diagnosed with a complicated UTI and underwent treatment course with antibiotics, this was followed by a bout of diarrhea lasting approximately one week, and patient states over the past week she has had significant increase in her overall fatigue, body aches and weakness. Patient reported that she is no longer able to independently perform the activities of daily living as she was 1 week ago. She underwent full evaluation in the emergency department. CBC was unremarkable. CMP revealed hyperchloremia with chloride of 111, prerenal azotemia with BUN of 30, elevated AST of 43, elevated alkaline phosphatase of 132, troponin 0.029 and proBNP of 3180. TSH was normal findings at 1.160. Urinalysis was positive for infection. Influenza A, influenza B, Covid, and C. diff all negative. chest x-ray revealing hyperinflation compatible with COPD with right lower lobe infiltrate and pleural effusion similar to 2018 imaging consistent with pulmonary arterial hypertension. EKG showing ventricular paced rhythm at [address] abdomen and pelvis revealing prominent fluid-filled small bowel loops mid and lower abdomen and pelvis with additional fluid throughout the colon correlating for enteritis, nodular liver suggestive of cirrhosis, and left sided colonic diverticulosis negative for acute diverticulitis. On 02/20/22, patient was found to have a large tick embedded into right lateral calf. Tick was removed using tweezers and sent to lab for analysis. Patient was started on doxycycline 100 mg twice daily prophylactically for treatment of Lyme disease pending stat Lyme antibodies IgG and IgM to be obtained. February 22: Patient iwas under sound physicians under the observation policy of the hospital. Now made inpatient. Yesterday Sitting up in bed. Tired. Decreased appetite. Having frequent BMs. Not too loose. Did walk in the hallway with support/therapy. No fever no chills. Using a rolling walker walkabout 100 feet. Active Medications Acetaminophen (Acetaminophen Tab 325 Mg Tab) 650 mg PO Q6HR PRN PRN Reason: Mild Pain or Fever > 100.5 Hydrocodone Bitart/Acetaminophen (Hydrocodone/Apap 5-325mg 1 Each Tab) 1 each PO Q4HR PRN PRN Reason: Moderate Pain Last Admin: 02/19/22 19:31 Dose: 1 each Documented by: Alprazolam (Alprazolam 0.25 Mg Tab) 0.25 mg PO BID PRN PRN Reason: Anxiety Last Admin: 02/22/22 07:52 Dose: 0.25 mg Documented by: Doxycycline Monohydrate (Doxycycline 100 Mg Cap) 100 mg PO BID [facility]; Protocol Last Admin: 02/22/22 07:52 Dose: 100 mg Documented by: Escitalopram Oxalate (Escitalopram 5 Mg Tab) 5 mg PO DAILY [facility] Last Admin: 02/22/22 07:52 Dose: 5 mg Documented by: Furosemide (Furosemide 40 Mg Tab) 40 mg PO DAILY [facility] Last Admin: 02/22/22 07:53 Dose: 40 mg Documented by: Loperamide HCl (Loperamide 2 Mg Cap) 2 mg PO QID PRN PRN Reason: Diarrhea Last Admin: 02/22/22 13:41 Dose: 2 mg Documented by: Melatonin (Melatonin 3 Mg Tablet) 3 mg PO HS [facility] Last Admin: 02/21/22 19:51 Dose: Not Given Documented by: Metoprolol Tartrate (Metoprolol Tartrate 50 Mg Tab) 100 mg PO BID [facility] Last Admin: 02/22/22 07:53 Dose: 100 mg Documented by: Miscellaneous Information (Warfarin Per Pharmacy) 1 each MISCELLANE DIRECTED PRN; Protocol PRN Reason: Per Protocol Multivitamins (Multivitamins, Thera 1 Each Tab) 1 each PO DAILY [facility] Last Admin: 02/22/22 07:53 Dose: 1 each Documented by: Naloxone HCl (Naloxone 0.4 Mg/Ml 1 Ml Vial) 0.2 mg IV Q2M PRN PRN Reason: Opioid Reversal Oxycodone/Acetaminophen (Oxycodone-Apap 5-325mg 1 Each Tab) 1 each PO Q4HR PRN PRN Reason: Severe Pain Potassium Chloride (Potassium Chloride Er 10 Meq Tab.Er.Prt) 10 meq PO Q48H [facility] Last Admin: 02/22/22 07:53 Dose: 10 meq Documented by: Warfarin Sodium (Warfarin 2 Mg Tab) 4 mg PO MOFR@1800 [facility]; Protocol Warfarin Sodium (Warfarin 2 Mg Tab) 2 mg PO SUTUWETHSA@1800 [facility] Last Admin: 02/21/22 17:14 Dose: 2 mg Documented by: On examination: VITAL SIGNS: [97.4, 65, 16, 109/49, 97% room air] GENERAL APPEARANCE: BMI 20.1, sitting up in bed, awake tired HEENT: Normal external appearance of nose and ear. Oral cavity normal EYES: Pupils equal. Conjunctiva normal. NECK: JVD not raised. Mass not palpable. RESPIRATORY: Respiratory effort normal. Lungs clear to auscultation. CARDIOVASCULAR: First and second sounds normal. No edema. ABDOMEN: Soft. Liver and spleen not palpable. No tenderness. No mass palpable. MUSCULAR skeletal: Evidence of OA in multiple joints PSYCHIATRY: Alert and oriented x3. Mood and affect normal. INVESTIGATIONS, reviewed in the clinical context: February 22: White count 5.8 hemoglobin 11.9 platelets 151 and INR 2.8 sodium 142 potassium 3.6 creatinine 0.8 C. diff: Negative UA: Positive for leukoesterase WBC COVID 19/influenza type A/influenza type B: Not detected EKG tracing personally reviewed by [id number] paced rhythm Computed tomography scan abdomen: Prominent fluid-filled small bowel loops. Circumferential bladder wall thickening. Left-sided colonic diverticulosis. Nodular liver contour suggesting cirrhosis. Gallstones. Moderate cardiomegaly. Chest x-ray: COPD. Significant cardiomegaly. Right lower lobe infiltrate. 2-D echocardiogram: Severely dilated right ventricle, left atrium. Intubated mitral valve with evidence of moderate mitral stenosis. Aortic sclerosis. Severe pulmonary hypertension. EF 55-60%. Assessment and plan: -Acute on chronic diarrhea: unControlled C. diff negative. Seen by GI. At this point patient does not want colonoscopy. 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 Serology sent out for Lyme disease. Tick also send out for examination. doxycycline -Persistent atrial fibrillation Chronically on Coumadin. 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 Cheung from psychiatry. Started on Lexapro 5 mg a day. -Insomnia Started on melatonin -Primary osteoarthritis multiple joints bilaterally Tylenol as needed -Acute on chronic medical debility Fall precautions. PT OT -Coumadin monitoring Follow INR -Acute UTI with cystitis Doxycycline -Gait dysfunction from debility, osteoarthritis Using a rolling walker. -DO NOT RESUSCITATE Continue current medication treatment plan. Care was discussed with the patient. Questions answered. Using a rolling walker. Discussed with PT OT. Doxycycline. Total time spent today about 40 minutes with over 25 minutes of discussion.
[2022-02-22] MEDS: WARFARIN 2 MG TAB PO SCH (17:14)
[2022-02-22] MEDS: MELATONIN 3 MG TABLET PO SCH (22:09)
[2022-02-23] MEDS: METOPROLOL TARTRATE 50 MG TAB PO SCH ×2 (01:37→09:40)
[2022-02-23] MEDS: LOPERAMIDE 2 MG CAP PO PRN (04:48)
[2022-02-23 07:31] LABS: INR 2.6 (<1.2); Prothrombin Time 25.6 sec (9.0-12.0)
[2022-02-23] MEDS: ESCITALOPRAM 5 MG TAB PO SCH (09:39)
[2022-02-23] MEDS: MULTIVITAMINS, THERA 1 EACH TAB PO SCH (09:39)
[2022-02-23] MEDS: DOXYCYCLINE 100 MG CAP PO SCH (09:39)
[2022-02-23] MEDS: FUROSEMIDE 40 MG TAB PO SCH (09:40)
[2022-02-23 10:29] LABS: Gliadin AB IgA, Deaminated NEGATIVE (NEGATIVE); Gliadin AB IgA, Unit <0.2 U/mL; Gliadin AB IgG, Deaminated NEGATIVE (NEGATIVE); Gliadin AB IgG, Unit <0.4 U/mL
--- NOTE | 2022-02-23 13:53 | P.PN ---
Subjective Progress Note Date: 02/23/22 Principal diagnosis: Diarrhea, weakness 78-year-old female who we are seeing is a follow-up for diarrhea. Yesterday the patient had 4 episodes of loose bowel movements, nonbloody. She had a C. diff that was negative on admission. Stool cultures are collected and pending. She was started on Imodium as needed. Patient states she had one bowel movement early this morning, but she states it was not as loose. Denies any abdominal pain, nausea, or vomiting. Patient was started on Ensure yesterday. Celiac panel was ordered and is negative. Objective - Vital Signs Vital signs: Vital Signs Temp 97.6 F 02/23/22 07:00 Pulse 60 02/23/22 07:00 Resp 15 02/23/22 07:00 BP 119/65 02/23/22 07:00 Pulse Ox 94 L 02/23/22 07:00 Intake & Output 02/22/22 02/23/22 02/23/22 18:59 06:59 18:59 Intake Total 222 180 Balance 222 180 Intake: Oral 222 180 Other: Voiding Method Toilet Toilet # Voids 3 2 # Bowel Movements 2 - Exam General appearance: The patient is alert, oriented, appears in no acute distress. HET: Head is normocephalic and atraumatic. Conjunctiva pink. Sclera anicteric. Neck: Supple without lymphadenopathy. Abdomen: Soft, nontender, nondistended with bowel sounds. No guarding or rigidity. Extremities: Normal skin color and turgor. No pedal edema Skin: No rashes, no jaundice Neurological: No focal deficits. Alert and oriented -3. - Labs CBC & Chem 7: 02/22/22 05:45 02/22/22 05:45 Labs: Abnormal Lab Results - Last 24 Hours (Table) 02/22/22 02/22/22 02/23/22 Range/Units 05:45 05:45 06:53 RBC 3.76 L (4.10-5.20) X 10*6/uL Hgb 11.9 L (12.0-15.0) g/dL Hct 37.1 L (37.2-46.3) % MCV 98.7 H (80.0-97.0) fL PT 25.6 H (9.0-12.0) sec INR 2.6 H (<1.2) BUN/Creatinine Ratio 21.58 H (12.00-20.00) Ratio Magnesium 1.3 L (1.5-2.4) mg/dL Albumin/Globulin Ratio 1.43 L (1.60-3.17) g/dL Microbiology - Last 24 Hours (Table) 02/22/22 10:04 Stool Culture - Preliminary Stool Assessment and Plan (1) Diarrhea Narrative/Plan: 86-year-old female with a history of atrial fibrillation on Coumadin presented to the emergency department as directed by her family for generalized weakness over the last 1-2 months duration. She has been following with her PCP who initially diagnosed her with urinary tract infection and started her on antibiotics. Patient states that she's continued to have weakness lack of energy. She has lack of appetite and decreased food intake due to nothing tastes well. She states she's lost 20-30 pounds last 1 month duration. States that she's had intermittent diarrhea however it's more formed at this time and soft. No blood in her stool. Unknown etiology at this time, could be infectious. CAT scan does reveal possible antritis/gastritis. C. difficile was negative. Will obtain other stool cultures. Consider possible colonoscopy, at this time patient is stating she does not want to undergo a colonoscopy. Current Visit: Yes Status: Acute Code(s): R19.7 - DIARRHEA, UNSPECIFIED SNOMED Code(s): 57951196 (2) Weakness generalized Current Visit: Yes Status: Acute Code(s): R53.1 - WEAKNESS SNOMED Code(s): 58560614 (3) Atrial fibrillation Current Visit: Yes Status: Acute Code(s): I48.91 - UNSPECIFIED ATRIAL FIBRILLATION SNOMED Code(s): 70807572 Plan: 1. Continue symptomatic and supportive care 2. Continue medical management 3. Stool cultures ordered 4. Diet as tolerated 5. Celiac panel ordered, negative 6. Imodium as needed 7. No plans on endoscopic evaluation at this time Thank you for this consultation, patient is cleared from gastroenterology for discharge. We will sign off at this time. Dr. Karmen Duncan I agree with the dictator's note, documented as a scribe by Rajwinder Butler.
[2022-02-23 14:10] VITALS: BP 123/75; PULSE 75; RESP 14; TEMP 97.7
--- NOTE | 2022-02-23 16:32 | P.DS ---
Providers Date of admission: 02/21/22 12:37 Expected date of discharge: 02/23/22 Attending physician: Cuate Carroll Consults: 02/20/22 15:31 Consult Physician Routine Consulting Provider: Katya Duncan Consult Reason/Comments: persistent diarrhea, enteritis vs other, also noted liver nodules. Do you want consulting provider notified?: Yes 02/20/22 17:39 Consult Physician Routine Consulting Provider: J Carlos Chen Consult Reason/Comments: depression Do you want consulting provider notified?: Already Contacted 02/23/22 12:28 Consult Physician Routine Consulting Provider: Yesica More Consult Reason/Comments: Tick borne disease Do you want consulting provider notified?: Yes Primary care physician: Boy Eric [facility] Course: Hospital course: Patient is a very pleasant 86-year-old female, follows with Dr. Eric with a past medical history of CAD with previous mitral valve repair, congestive heart failure, and paroxysmal atrial fibrillation on anticoagulation with Coumadin. Patient presented to the emergency department on 02/19/22 for chief complaint of generalized weakness. Patient reports overall decreased appetite, weakness, and weight loss beginning approximately one month ago but states at that time she was diagnosed with a complicated UTI and underwent treatment course with antibiotics, this was followed by a bout of diarrhea lasting approximately one week, and patient states over the past week she has had significant increase in her overall fatigue, body aches and weakness. Patient reported that she is no longer able to independently perform the activities of daily living as she was 1 week ago. She underwent full evaluation in the emergency department. CBC was unremarkable. CMP revealed hyperchloremia with chloride of 111, prerenal azotemia with BUN of 30, elevated AST of 43, elevated alkaline phosphatase of 132, troponin 0.029 and proBNP of 3180. TSH was normal findings at 1.160. Urinalysis was positive for infection. Influenza A, influenza B, Covid, and C. diff all negative. chest x-ray revealing hyperinflation compatible with COPD with right lower lobe infiltrate and pleural effusion similar to 2018 imaging consistent with pulmonary arterial hypertension. EKG showing ventricular paced rhythm at [address] abdomen and pelvis revealing prominent fluid-filled small bowel loops mid and lower abdomen and pelvis with additional fluid throughout the colon correlating for enteritis, nodular liver suggestive of cirrhosis, and left sided colonic diverticulosis negative for acute diverticulitis. On 02/20/22, patient was found to have a large tick embedded into right lateral calf. Tick was removed using tweezers and sent to lab for analysis. Patient was started on doxycycline 100 mg twice daily prophylactically for treatment of Lyme disease pending stat Lyme antibodies IgG and IgM to be obtained. February 22: Patient iwas under sound physicians under the observation policy of the hospital. Now made inpatient. Yesterday Sitting up in bed. Tired. Decreased appetite. Having frequent BMs. Not too loose. Did walk in the hallway with support/therapy. No fever no chills. Using a rolling walker walkabout 100 feet. February 23: No further diarrhea. Patient states has had decreased appetite for close to a year. Discussed with Dr. Hui from ID. Lyme disease unlikely. Prophylactically patient will complete a course of doxycycline. Discussed with patient. Patient seen by GI. Diarrhea could be antibiotic associated diarrhea. Patient does not want colonoscope he. Discussion and discharge planning more than 35 minutes On examination: VITAL SIGNS: 87.7, 75, 14, 123 with, 90% room air GENERAL APPEARANCE: BMI 20.1, sitting up in bed, awake tired HEENT: Normal external appearance of nose and ear. Oral cavity normal EYES: Pupils equal. Conjunctiva normal. NECK: JVD not raised. Mass not palpable. RESPIRATORY: Respiratory effort normal. Lungs clear to auscultation. CARDIOVASCULAR: First and second sounds normal. No edema. ABDOMEN: Soft. Liver and spleen not palpable. No tenderness. No mass palpable. MUSCULAR skeletal: Evidence of OA in multiple joints PSYCHIATRY: Alert and oriented x3. Mood and affect normal. INVESTIGATIONS, reviewed in the clinical context: February 22: White count 5.8 hemoglobin 11.9 platelets 151 and INR 2.8 sodium 142 potassium 3.6 creatinine 0.8 C. diff: Negative UA: Positive for leukoesterase WBC COVID 19/influenza type A/influenza type B: Not detected EKG tracing personally reviewed by dc-ventricle paced rhythm Computed tomography scan abdomen: Prominent fluid-filled small bowel loops. Circumferential bladder wall thickening. Left-sided colonic diverticulosis. Nodular liver contour suggesting cirrhosis. Gallstones. Moderate cardiomegaly. Chest x-ray: COPD. Significant cardiomegaly. Right lower lobe infiltrate. 2-D echocardiogram: Severely dilated right ventricle, left atrium. Intubated mitral valve with evidence of moderate mitral stenosis. Aortic sclerosis. Severe pulmonary hypertension. EF 55-60%. Assessment and plan: -Diarrhea likely secondary to antibiotic associated. C. diff negative. Seen by GI. At this point patient does not want colonoscopy. 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 Serology sent out for Lyme disease. Tick also send out for examination. doxycycline prophylactically. Clinically does not seem to have Lyme disease. We'll follow outpatient with ID. -Persistent atrial fibrillation Chronically on Coumadin. 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 Cheung from psychiatry. Started on Lexapro 5 mg a day. -Insomnia Started on melatonin -Primary osteoarthritis multiple joints bilaterally Tylenol as needed -Acute on chronic medical debility Fall precautions. PT OT -Coumadin monitoring Follow INR -Acute UTI with cystitis Doxycycline -Gait dysfunction from debility, osteoarthritis Using a rolling walker. -DO NOT RESUSCITATE Disposition: Home Plan - Discharge Summary Discharge Rx Participant: No New Discharge Prescriptions: New Doxycycline Hyclate 100 mg PO BID 10 Days #20 tab Loperamide [Imodium] 2 mg PO QID PRN #30 cap PRN Reason: Diarrhea Escitalopram [Lexapro] 5 mg PO DAILY #30 tab Continue Warfarin [Coumadin] 4 mg PO MOFR@1800 Warfarin Sodium [Coumadin] 2 mg PO SUTUWETHSA@1800 Multivit-Min/FA/Lycopen/Lutein [Centrum Silver Tablet] 1 tab PO DAILY Metoprolol Tartrate [Lopressor] 100 mg PO BID ALPRAZolam [Xanax] 0.25 mg PO TID PRN PRN Reason: Anxiety Discontinued Potassium Chloride [Klor-Con 20] 10 meq PO Q48H Furosemide [Lasix] 40 mg PO DAILY Discharge Medication List Warfarin [Coumadin] 4 mg PO MOFR@1800 12/09/14 [History] Multivit-Min/FA/Lycopen/Lutein [Centrum Silver Tablet] 1 tab PO DAILY 04/29/18 [History] Warfarin Sodium [Coumadin] 2 mg PO SUTUWETHSA@1800 04/29/18 [History] ALPRAZolam [Xanax] 0.25 mg PO TID PRN 02/19/22 [History] Metoprolol Tartrate [Lopressor] 100 mg PO BID 02/19/22 [History] Doxycycline Hyclate 100 mg PO BID 10 Days #20 tab 02/23/22 [Rx] Escitalopram [Lexapro] 5 mg PO DAILY #30 tab 02/23/22 [Rx] Loperamide [Imodium] 2 mg PO QID PRN #30 cap 02/23/22 [Rx] Follow up Appointment(s)/Referral(s): [facility], [NON-STAFF] - 1-2 Days Boy Eric DO [Primary Care Provider] - 03/06/22 9:20 am Katya Duncan MD [STAFF PHYSICIAN] - As Needed Yesica More MD [STAFF PHYSICIAN] - 1 Week Activity/Diet/Wound Care/[facility] [place] [phone] can be contacted for mental health counseling. They are able to arrange home visits with patients. Discharge/Stand Alone Forms: Community Resources, Outpatient Counseling
[2022-02-23] MEDS ORDERED: WARFARIN 2 MG TAB PO SCH (18:00)
== END 2022-02-23 17:17 | disposition home or self-care (01) | DRG 394 ==
LOC: EC 09:39 → 6NMEDSUR 15:00 → OBSVTOIN 02-21 12:37
PROVIDERS: ADMIT Hospitalist; ATTEND Hospitalist
DX: K52.1 Toxic gastroenteritis and colitis (principal); N30.00 Acute cystitis without hematuria; I48.19 Other persistent atrial fibrillation; F32.9 Major depressive disorder, single episode, unspecified; Z66 Do not resuscitate; F41.9 Anxiety disorder, unspecified; G47.00 Insomnia, unspecified; M15.9 Polyosteoarthritis, unspecified; R53.81 Other malaise; J44.9 Chronic obstructive pulmonary disease, unspecified; K57.30 Diverticulosis of large intestine without perforation or abscess without bleeding; I25.10 Atherosclerotic heart disease of native coronary artery without angina pectoris; I50.9 Heart failure, unspecified; E87.8 Other disorders of electrolyte and fluid balance, not elsewhere classified; I27.29 Other secondary pulmonary hypertension; T36.95XA Adverse effect of unspecified systemic antibiotic, initial encounter; K74.69 Other cirrhosis of liver; S80.861A Insect bite (nonvenomous), right lower leg, initial encounter; W57.XXXA Bitten or stung by nonvenomous insect and other nonvenomous arthropods, initial encounter; Z20.822 Contact with and (suspected) exposure to COVID-19; Z88.6 Allergy status to analgesic agent; Z88.2 Allergy status to sulfonamides; Z88.8 Allergy status to other drugs, medicaments and biological substances; Z79.01 Long term (current) use of anticoagulants; Z79.899 Other long term (current) drug therapy; Z95.0 Presence of cardiac pacemaker
CPT/HCPCS: 36415; 71046; 74177; 80048; 80053; 81001; 83516; 83605; 83735; 83880; 84443; 84484; 85025; 85027; 85379; 85610; 85652; 85730; 86140; 86618; 87045; 87046; 87086; 87324; 87502; 87635; 93005; 93306; 99285

== ENCOUNTER 2023-01-20 13:18 | Inpatient (IN) | payer MEDICARE, BC ==
--- NOTE | 2023-01-20 14:13 | ED ---
General Adult HPI - General Chief complaint: Shortness of Breath Stated complaint: Difficulty Breathing Time Seen by Provider: 01/20/23 13:24 Source: patient, family, RN notes reviewed, old records reviewed Mode of arrival: wheelchair Limitations: no limitations - History of Present Illness Initial comments: Patient is an 87-year-old female presents with primary complaint shortness of breath. Has been ongoing for 1-2 weeks. Was diagnosed with pneumonia as well as placed on an inhaler and steroids with minimal improvement last week. Is still complaining of shortness of breath. Also had worsening lower extremity swelling at that time and her Lasix dosing was increased with some improvement. Patient has a history of A. fib on Coumadin, heart failure, artificial valve. Present for further evaluation of this time. She states she has exertional dyspnea, but has somewhat worsening chronic orthopnea. Denies any PND. This is improved lower extremity swelling but it was worse last week. Endorses a nonproductive cough. Denies any fevers, chills. Does have a sick contact in her and we members with similar upper respiratory symptoms. Endorses some mild rhinorrhea. Denies any chest pain. Denies any abdominal pain, nausea, vomiting, diarrhea. Has no other complaints at this time. Presents over concern for her worsening shortness of breath.Patient is at home with home health care. Recent INR was within normal limits. Recently received treatment for pneumonia without any improvement in symptoms. - Related Data Home Medications Medication Instructions Recorded Confirmed Albuterol Inhaler [Ventolin Hfa 2 puff INHALATION RT-QID PRN 01/20/23 01/20/23 Inhaler] Escitalopram [Lexapro] 10 mg PO DAILY 01/20/23 01/20/23 Ferrous Sulfate [Feosol] 325 mg PO DAILY 01/20/23 01/20/23 Furosemide [Lasix] 20 mg PO DAILY 01/20/23 01/20/23 Metoprolol Tartrate [Lopressor] 50 mg PO BID-W/MEALS 01/20/23 01/20/23 Potassium Chloride ER [K-Dur 20] 20 meq PO DAILY 01/20/23 01/20/23 Prochlorperazine [Compazine] 10 mg PO BID PRN 01/20/23 01/20/23 Warfarin [Coumadin] 2 mg PO HS@1800 01/20/23 01/20/23 Allergies Allergy/AdvReac Type Severity Reaction Status Date / Time Sulfa (Sulfonamide Allergy Rash/Hives Verified 01/20/23 17:24 Antibiotics) ibuprofen [From Motrin] AdvReac Itching Verified 01/20/23 17:24 ondansetron [From Zofran] AdvReac Nausea Verified 01/20/23 17:24 Review of Systems ROS Statement: Those systems with pertinent positive or pertinent negative responses have been documented in the HPI. Review of Systems: CONST: Denies fever EYES: Denies blurry vision ENT: Denies nasal congestion C/V: Denies Chest pain RESP: Endorses Shortness of breath GI: Denies abdominal pain : Denies dysuria SKIN: Denies rash. MSK: Denies joint pain. NEURO: Denies headache ROS Other: All systems not noted in ROS Statement are negative. Past Medical History Past Medical History: Atrial Fibrillation, Heart Failure, COPD, Pneumonia Additional Past Medical History / Comment(s): PACEMAKER. SEE H&P. History of Any Multi-Drug Resistant Organisms: None Reported Past Surgical History: Pacemaker Additional Past Surgical History / Comment(s): OPEN HEART, MITRAL VALVE REPAIRED 2009. PACEMAKER 2009 - eOriginal. Past Anesthesia/Blood Transfusion Reactions: No Reported Reaction Type of Cardiac Device: Biventricular Pacemaker Device Placement Date:: 2009 Past Psychological History: No Psychological Hx Reported Smoking Status: Never smoker Past Alcohol Use History: None Reported Past Drug Use History: None Reported - Past Family History Mother Family Medical History: No Reported History General Exam - General Exam Comments Initial Comments: General: Appears in no acute distress. HEAD: Normal with no signs of head trauma. EYES: PERRLA, EOMI, conjunctiva normal, no discharge. ENT: Hearing grossly intact, normal oropharynx. RESPIRATORY: Mildly coarse breath sounds bilaterally with no obvious wheezes. No increased work of breathing. Mild hypoxia on room air, on exertion hypoxia into the 80s C/V: Regular rate and rhythm. S1 and S2 auscultated, symmetrical pitting edema, peripheral pulses 2+ and intact throughout ABD: Abd is soft, nontender, nondistended EXT: Normal range of motion, no obvious deformity SKIN: No rashes or lesions observed on exposed skin. NEURO: Alert and oriented 4. Limitations: no limitations Course Vital Signs 01/20/23 01/20/23 01/20/23 13:21 15:46 18:00 Temperature 98.1 F Pulse Rate 59 L 67 60 Respiratory 22 20 18 Rate Blood Pressure 98/49 110/74 131/51 O2 Sat by Pulse 93 L 100 94 L Oximetry Medical Decision Making - Medical Decision Making Was pt. sent in by a medical professional or institution (, PA, ANALYTICAL RESEARCH CHEMIST, urgent care, hospital, or correction...) When possible be specific @ -No Did you speak to anyone other than the patient for history (EMS, parent, family, police, friend...)? What history was obtained from this source @ -Patient's family members are at bedside and are providing additional history including that the patient does receive care from family primarily as well as receives home health and her recent issues with the shortness of breath and diagnosis of pneumonia outpatient after completing a course of antibiotics. Did you review nursing and triage notes (agree or disagree)? Why? @ -I reviewed and agree with nursing and triage notes Were old charts reviewed (outside hosp., previous admission, EMS record, old EKG, old radiological studies, urgent care reports/EKG's, correction records)? Report findings @ -Old charts reviewed from prior visit in February 2022. Differential Diagnosis (chest pain, altered mental status, abdominal pain women, abdominal pain men, vaginal bleeding, weakness, fever, dyspnea, syncope, headache, dizziness, GI bleed, back pain, seizure, CVA, palpatations, mental health, musculoskeletal)? @ -Differential Dyspnea: Coronary syndrome, arrhythmia, tamponade, asthma, COPD, pulmonary embolism, pneumonia, pneumothorax, pulmonary effusion, anaphylaxis, diabetic ketoacidosis, flailed chest, pulmonary contusion, diaphragmatic rupture, anemia, neuromusc ular, this is not meant to be an all-inclusive list. EKG interpreted by me (3pts min.). @ -As above X-rays interpreted by me (1pt min.). @ -Chest x-ray reveals appears to be a chronic right lower lobe appearing infiltrate and small bilateral pleural effusions also findings concerning for pulmonary vascular congestion. Concern for CHF exacerbation. CT interpreted by me (1pt min.). @ -None done U/S interpreted by me (1pt. min.). @ -None done What testing was considered but not performed or refused? (CT, X-rays, U/S, labs)? Why? @ -None What meds were considered but not given or refused? Why? @ -None Did you discuss the management of the patient with other professionals (professionals i.e. , PA, ANALYTICAL RESEARCH CHEMIST, lab, RT, psych nurse, social media specialist, zipper setter chainstitch, teacher, press officer, case packer and sealer)? Give summary @ -No Was smoking cessation discussed for >3mins.? @ -No Was critical care preformed (if so, how long)? @ -No Were there social determinants of health that impacted care today? How? (Homelessness, low income, unemployed, alcoholism, drug addiction, transportation, low edu. Level, literacy, decrease access to med. care, detention, rehab)? @ -No Was there de-escalation of care discussed even if they declined (Discuss DNR or withdrawal of care, Hospice)? DNR status @ -No What co-morbidities impacted this encounter? (DM, HTN, Smoking, COPD, CAD, Cancer, CVA, ARF, Chemo, Hep., AIDS, mental health diagnosis, sleep apnea, morbid obesity)? @ -CHF, A. fib, recent pneumonia diagnosis Was patient admitted / discharged? Hospital course, mention meds given and route, prescriptions, significant lab abnormalities, going to OR and other pertinent info. @ -Based on the patient's presentation and physical exam, I'm concerned for infectious versus possible cardio pulmonary etiology for her current symptoms. We will obtain cardio pulmonary labs, as well as viral swabs, chest x-ray. Vital signs are within acceptable limits. We will obtain an ambulatory pulse ox as well. Family was in agreement this plan. There was a long delay in obtaining laboratory studies. Chest x-ray reveals signs concerning for CHF. EKG shows a ventricularly paced rhythm with no acute findings. Patient's labs are remarkable for negative troponin includes wants. BNP is elevated to 7000. Troponin is indeterminate at 0.025. Patient has a therapeutic INR. Remainder the patient's labs are within acceptable limits. I updated the family as well as patient. She was recently treated for pneumonia with minimal improvement. We did discuss her chest x-ray findings which appear to be more or less chronic with pulmonary vascular congestion concerning for CHF exacerbation, considering she has somewhat worsening orthopnea, exertional dyspnea.. Therefore we will start the patient on Lasix. We did discuss that on ambulation, patient's oxygen level did drop to 80%'s. Patient will be admitted. Cardiology consulted. Echo ordered. Lasix ordered. Family and patient were in agreement this plan. She was admitted to [facility] Dr. Gold who accepted the admission. Undiagnosed new problem with uncertain prognosis? @ -No Drug Therapy requiring intensive monitoring for toxicity (Heparin, Nitro, Insulin, Cardizem)? @ -No Were any procedures done? @ -No Diagnosis/symptom? @ -CHF, hypoxia Acute, or Chronic, or Acute on Chronic? @ -Acute on chronic Uncomplicated (without systemic symptoms) or Complicated (systemic symptoms)? @ -Complicated Side effects of treatment? @ -none Exacerbation, Progression, or Severe Exacerbation] @ -no Poses a threat to life or bodily function? @ -Yes, if untreated can result in hypoxia which can cause end organ dysfunction. - Lab Data Result diagrams: 01/20/23 14:12 01/20/23 14:12 Lab Results 01/20/23 01/20/23 01/20/23 Range/Units 14:12 14:12 14:12 WBC 5.1 (3.8-10.6) k/uL RBC 3.93 (3.80-5.40) m/uL Hgb 12.6 (11.4-16.0) gm/dL Hct 39.4 (34.0-46.0) % MCV 100.1 H (80.0-100.0) fL MCH 32.1 (25.0-35.0) pg MCHC 32.1 (31.0-37.0) g/dL RDW 12.7 (11.5-15.5) % Plt Count 103 L (150-450) k/uL MPV 8.5 Neutrophils % 71 % Lymphocytes % 14 % Monocytes % 10 % Eosinophils % 1 % Basophils % 1 % Neutrophils # 3.6 (1.3-7.7) k/uL Lymphocytes # 0.7 L (1.0-4.8) k/uL Monocytes # 0.5 (0-1.0) k/uL Eosinophils # 0.1 (0-0.7) k/uL Basophils # 0.0 (0-0.2) k/uL PT 25.5 H (9.0-12.0) sec INR 2.6 H (<1.2) APTT 38.4 H (22.0-30.0) sec Sodium 139 (137-145) mmol/L Potassium 4.4 (3.5-5.1) mmol/L Chloride 107 (98-107) mmol/L Carbon Dioxide 24 (22-30) mmol/L Anion Gap 8 mmol/L BUN 37 H (7-17) mg/dL Creatinine 1.14 H (0.52-1.04) mg/dL Est GFR (CKD-EPI)AfAm 50 (>60 ml/min/1.73 sqM) Est GFR (CKD-EPI)NonAf 43 (>60 ml/min/1.73 sqM) Glucose 92 (74-99) mg/dL Plasma Lactic Acid Felipe (0.7-2.0) mmol/L Calcium 8.5 (8.4-10.2) mg/dL Magnesium 1.8 (1.6-2.3) mg/dL Total Bilirubin 0.7 (0.2-1.3) mg/dL AST 40 H (14-36) U/L ALT 31 (4-34) U/L Alkaline Phosphatase 119 (38-126) U/L Troponin I (0.000-0.034) ng/mL NT-Pro-B Natriuret Pep pg/mL Total Protein 6.2 L (6.3-8.2) g/dL Albumin 3.3 L (3.5-5.0) g/dL Urine Color Urine Appearance (Clear) Urine pH (5.0-8.0) Ur Specific [place] (1.001-1.035) Urine Protein (Negative) Urine Glucose (UA) (Negative) Urine Ketones (Negative) Urine Blood (Negative) Urine Nitrite (Negative) Urine Bilirubin (Negative) Urine Urobilinogen (<2.0) mg/dL Ur Leukocyte Esterase (Negative) Influenza Type A (PCR) (Not Detectd) Influenza Type B (PCR) (Not Detectd) RSV (PCR) (Not Detectd) SARS-CoV-2 (PCR) (Not Detectd) 01/20/23 01/20/23 01/20/23 Range/Units 14:12 14:12 14:12 WBC (3.8-10.6) k/uL RBC (3.80-5.40) m/uL Hgb (11.4-16.0) gm/dL Hct (34.0-46.0) % MCV (80.0-100.0) fL MCH (25.0-35.0) pg MCHC (31.0-37.0) g/dL RDW (11.5-15.5) % Plt Count (150-450) k/uL MPV Neutrophils % % Lymphocytes % % Monocytes % % Eosinophils % % Basophils % % Neutrophils # (1.3-7.7) k/uL Lymphocytes # (1.0-4.8) k/uL Monocytes # (0-1.0) k/uL Eosinophils # (0-0.7) k/uL Basophils # (0-0.2) k/uL PT (9.0-12.0) sec INR (<1.2) APTT (22.0-30.0) sec Sodium (137-145) mmol/L Potassium (3.5-5.1) mmol/L Chloride (98-107) mmol/L Carbon Dioxide (22-30) mmol/L Anion Gap mmol/L BUN (7-17) mg/dL Creatinine (0.52-1.04) mg/dL Est GFR (CKD-EPI)AfAm (>60 ml/min/1.73 sqM) Est GFR (CKD-EPI)NonAf (>60 ml/min/1.73 sqM) Glucose (74-99) mg/dL Plasma Lactic Acid Felipe 1.5 (0.7-2.0) mmol/L Calcium (8.4-10.2) mg/dL Magnesium (1.6-2.3) mg/dL Total Bilirubin (0.2-1.3) mg/dL AST (14-36) U/L ALT (4-34) U/L Alkaline Phosphatase (38-126) U/L Troponin I 0.025 (0.000-0.034) ng/mL NT-Pro-B Natriuret Pep 7030 pg/mL Total Protein (6.3-8.2) g/dL Albumin (3.5-5.0) g/dL Urine Color Urine Appearance (Clear) Urine pH (5.0-8.0) Ur Specific [place] (1.001-1.035) Urine Protein (Negative) Urine Glucose (UA) (Negative) Urine Ketones (Negative) Urine Blood (Negative) Urine Nitrite (Negative) Urine Bilirubin (Negative) Urine Urobilinogen (<2.0) mg/dL Ur Leukocyte Esterase (Negative) Influenza Type A (PCR) (Not Detectd) Influenza Type B (PCR) (Not Detectd) RSV (PCR) (Not Detectd) SARS-CoV-2 (PCR) (Not Detectd) 01/20/23 01/20/23 Range/Units 14:44 16:30 WBC (3.8-10.6) k/uL RBC (3.80-5.40) m/uL Hgb (11.4-16.0) gm/dL Hct (34.0-46.0) % MCV (80.0-100.0) fL MCH (25.0-35.0) pg MCHC (31.0-37.0) g/dL RDW (11.5-15.5) % Plt Count (150-450) k/uL MPV Neutrophils % % Lymphocytes % % Monocytes % % Eosinophils % % Basophils % % Neutrophils # (1.3-7.7) k/uL Lymphocytes # (1.0-4.8) k/uL Monocytes # (0-1.0) k/uL Eosinophils # (0-0.7) k/uL Basophils # (0-0.2) k/uL PT (9.0-12.0) sec INR (<1.2) APTT (22.0-30.0) sec Sodium (137-145) mmol/L Potassium (3.5-5.1) mmol/L Chloride (98-107) mmol/L Carbon Dioxide (22-30) mmol/L Anion Gap mmol/L BUN (7-17) mg/dL Creatinine (0.52-1.04) mg/dL Est GFR (CKD-EPI)AfAm (>60 ml/min/1.73 sqM) Est GFR (CKD-EPI)NonAf (>60 ml/min/1.73 sqM) Glucose (74-99) mg/dL Plasma Lactic Acid Felipe (0.7-2.0) mmol/L Calcium (8.4-10.2) mg/dL Magnesium (1.6-2.3) mg/dL Total Bilirubin (0.2-1.3) mg/dL AST (14-36) U/L ALT (4-34) U/L Alkaline Phosphatase (38-126) U/L Troponin I (0.000-0.034) ng/mL NT-Pro-B Natriuret Pep pg/mL Total Protein (6.3-8.2) g/dL Albumin (3.5-5.0) g/dL Urine Color Light Yellow Urine Appearance Clear (Clear) Urine pH 5.0 (5.0-8.0) Ur Specific [place] 1.008 (1.001-1.035) Urine Protein Negative (Negative) Urine Glucose (UA) Negative (Negative) Urine Ketones Negative (Negative) Urine Blood Negative (Negative) Urine Nitrite Negative (Negative) Urine Bilirubin Negative (Negative) Urine Urobilinogen <2.0 (<2.0) mg/dL Ur Leukocyte Esterase Negative (Negative) Influenza Type A (PCR) Not Detected (Not Detectd) Influenza Type B (PCR) Not Detected (Not Detectd) RSV (PCR) Not Detected (Not Detectd) SARS-CoV-2 (PCR) Not Detected (Not Detectd) - EKG Data -: EKG Interpreted by Me EKG Comments: 12-lead Electrocardiogram Interpretation Note EKG was reviewed and interpreted by myself. 12-lead ECG performed at 1433 is interpreted by me as revealing ventricularly paced rhythm at a rate of at 61 beats per minute. Left axis deviation. QRS is 152 ms, QTc is 489 ms.. There were no ST or T wave abnormalities to suggest myocardial ischemia or injury. R wave progression across the precordium was satisfactory. By my interpretation this EKG is non-diagnostic for acute ischemia. Disposition Clinical Impression: Congestive heart failure, Acute respiratory failure with hypoxia Disposition: ADMITTED IP TO THIS HOSP Condition: Stable Referrals: None,Stated [Primary Care Provider] - 1-2 days Time of Disposition: 17:45
--- NOTE | 2023-01-20 14:27 | XR ---
EXAMINATION TYPE: XR chest 2V DATE OF EXAM: 01/20/2023 2:22 PM COMPARISON: Chest radiographs from 02/19/2022 TECHNIQUE: XR chest 2V Frontal and lateral views of the chest. CLINICAL INDICATION:Female, 87 years old with history of difficulty breathing; FINDINGS: Lungs/Pleura: Small bilateral pleural effusions. Patchy airspace opacities within the right mid to lo wer lung. Hyperinflation. Mild prominence of the interstitium. Heart/mediastinum: Cardiomediastinal silhouette is enlarged and stable. Atherosclerotic calcificatio ns are seen in the aorta. Two lead cardiac conduction device overlying the left hemithorax with lead tips projecting over the right ventricle and right atrium. Cardiac valvular prosthesis. Musculoskeletal: No acute osseous pathology. Midline sternotomy wires are noted and stable. IMPRESSION: COPD and cardiomegaly with right lower lobe infiltrate and small bilateral pleural effusions. Mild pr ominence of the interstitium. Correlate for CHF exacerbation.
[2023-01-20 16:32] LABS: Basophils % (A) 1 %; Eosinophils # (A) 0.1 k/uL (0-0.7); Eosinophils % (A) 1 %; HCT 39.4 % (34.0-46.0); HGB 12.6 gm/dL (11.4-16.0); Lymphocytes # (A) 0.7 k/uL (1.0-4.8); Lymphocytes % (A) 14 %; MCH 32.1 pg (25.0-35.0); MCHC 32.1 g/dL (31.0-37.0); MCV 100.1 fL (80.0-100.0); Mean Platelet Volume 8.5; Monocytes # (A) 0.5 k/uL (0-1.0); Monocytes % (A) 10 %; Neutrophils # (A) 3.6 k/uL (1.3-7.7); Neutrophils % (A) 71 %; Platelet Count 103 k/uL (150-450); RBC 3.93 m/uL (3.80-5.40); RDW 12.7 % (11.5-15.5); WBC 5.1 k/uL (3.8-10.6)
[2023-01-20 16:41] LABS: INR 2.6 (<1.2); Partial Thromboplastin Time 38.4 sec (22.0-30.0); Prothrombin Time 25.5 sec (9.0-12.0)
[2023-01-20 16:52] LABS: Appearance,Urine Clear (Clear); Bilirubin,Urine Negative (Negative); Blood,Urine Negative (Negative); Color,Urine Light Yellow; Glucose,Urine (UA) Negative (Negative); Ketones,Urine Negative (Negative); Leukocyte Esterase,Urine Negative (Negative); Nitrite,Urine Negative (Negative); Protein,Urine Negative (Negative); Specific Gravity,Urine 1.008 (1.001-1.035); Urobilinogen,Urine <2.0 mg/dL (<2.0)
[2023-01-20 16:53] LABS: Albumin 3.3 g/dL (3.5-5.0); Calcium 8.5 mg/dL (8.4-10.2); Magnesium 1.8 mg/dL (1.6-2.3); Potassium 4.4 mmol/L (3.5-5.1); Total Bilirubin 0.7 mg/dL (0.2-1.3); Total Protein 6.2 g/dL (6.3-8.2)
[2023-01-20] MEDS ORDERED: FUROSEMIDE 10 MG/ML 4 ML VIAL IV STA (17:56)
[2023-01-20] MEDS ORDERED: NALOXONE 0.4 MG/ML 1 ML VIAL IV PRN (17:59)
[2023-01-20] MEDS ORDERED: PROCHLORPERAZINE 10 MG TAB PO PRN (18:00)
[2023-01-20] MEDS ORDERED: WARFARIN 2 MG TAB PO SCH (18:00)
[2023-01-20] MEDS ORDERED: ASPIRIN 81 MG PO STA (18:08)
[2023-01-21] MEDS: FUROSEMIDE 10 MG/ML 4 ML VIAL IV SCH ×3 (02:50→20:27)
[2023-01-21] MEDS: METOPROLOL TARTRATE 50 MG TAB PO SCH ×2 (08:16→15:53)
[2023-01-21] MEDS: POTASSIUM CHLORIDE ER 20 MEQ TAB.ER PO SCH (08:16)
[2023-01-21] MEDS: ESCITALOPRAM 10 MG TAB PO SCH (08:16)
[2023-01-21 09:33] LABS: Basophils % (A) 0 %; Eosinophils % (A) 0 %; HCT 37.6 % (34.0-46.0); HGB 12.3 gm/dL (11.4-16.0); Lymphocytes # (A) 0.4 k/uL (1.0-4.8); Lymphocytes % (A) 5 %; MCH 32.3 pg (25.0-35.0); MCHC 32.8 g/dL (31.0-37.0); MCV 98.5 fL (80.0-100.0); Mean Platelet Volume 8.5; Monocytes # (A) 0.4 k/uL (0-1.0); Monocytes % (A) 5 %; Neutrophils # (A) 6.7 k/uL (1.3-7.7); Neutrophils % (A) 86 %; Platelet Count 101 k/uL (150-450); RBC 3.82 m/uL (3.80-5.40); RDW 13.1 % (11.5-15.5); WBC 7.8 k/uL (3.8-10.6)
[2023-01-21 09:42] LABS: INR 2.7 (<1.2); Prothrombin Time 26.2 sec (9.0-12.0)
[2023-01-21 10:05] LABS: Calcium 8.5 mg/dL (8.4-10.2); Potassium 3.9 mmol/L (3.5-5.1)
--- NOTE | 2023-01-21 10:53 | P.CRDCN ---
History of Present Illness Consult date: 01/21/23 History of present illness: HISTORY OF PRESENT ILLNESS: This is a 87-year-old female with a past medical history significant for permanent atrial fibrillation, mitral regurgitation, mitral valve repair, tricuspid valve repair, severe pulmonary hypertension, and congestive heart failure. Patient follows in the office with Dr. Duncan but has not been seen in the office since July 2021. We have been asked to see the patient in consultation for congestive heart failure. Patient examined at the bedside. Patient presented to the hospital with a chief complaint of shortness of breath. Patient states that she was recently treated outpatient for pneumonia but her shortness of breath has persisted. She reports a frequent nonproductive cough. She denies any chest pain or pressure. The patient was found to be in acute congestive heart failure. She was started on IV Lasix. The patient continues to report shortness of breath this morning. * EKG reveals ventricular paced rhythm * Chest xray COPD and cardiomegaly with right lower lobe infiltrate and small bilateral pleural effusions. Mild prominence of interstitium. Correlate for CHF exacerbation. * Laboratory data: WBC 7.8. Hemoglobin 12.3. Platelet count 101. INR 2.7. Sodium 138. Potassium 3.9. BUN 37. Creatinine 1.38. Troponin negative 3 * Current home cardiac medications include warfarin 2 mg at night, metoprolol tartrate 50 mg twice a day, and Lasix 20 mg daily * Most recent echocardiogram obtained in February 2022 revealed ejection fraction 55- 60%, moderate to severe pulmonary hypertension, trace MR, moderate to severe mitral stenosis,, severely dilated right ventricle and left atrium. REVIEW OF SYSTEMS: At the time of my exam: CONSTITUTIONAL: Denies fever or chills. HEENT: Denies blurred vision, vision changes, or eye pain. Denies hemoptysis CARDIOVASCULAR: Denies chest pain. Denies orthopnea. Denies PND. Denies palpitations RESPIRATORY: Denies shortness of breath. GASTROINTESTINAL: Denies abdominal pain. Denies nausea or vomiting. HEMATOLOGIC: Denies bleeding disorders. GENITOURINARY: Denies any blood in urine. SKIN: Denies pruitis. Denies rash. PHYSICAL EXAM: VITAL SIGNS: Reviewed. GENERAL: Well-developed in no acute distress. HEENT: Head is normocephalic. Pupils are equal, round. Sclerae anicteric. Mucous membranes of the mouth are moist. Neck supple. No JVD or thyromegaly LUNGS: Respirations even and unlabored. Lungs diminished with rhonchi and crackles at the bases. Frequent coughing noted. HEART: Regular rate and rhythm. S1 and S2 heard. + systolic murmur noted. ABDOMEN: Soft. Nondistended. Nontender. EXTREMITIES: Normal range of motion. No clubbing or cyanosis. Peripheral p ulses intact. No lower extremity edema NEUROLOGIC: Awake and alert. Oriented x 3. ASSESSMENT: Shortness of breath Recent outpatient diagnosis of pneumonia Acute on chronic heart failure with preserved ejection fraction Acute kidney injury Permanent atrial fibrillation, on Warfarin outpatient History of sick sinus syndrome status post pacemaker implantation ([employer]) Severe pulmonary hypertension History of tricuspid and mitral valve repair PLAN: Obtain 2D echo to assess cardiac structure and function Continue IV Lasix 40 mg every 12 hours Daily weights, accurate I&O, and monitoring of kidney function Continue anticoagulation with Warfarin. Monitor INR. Consult pulmonary for evaluation Further recommendations pending patient course Nurse practitioner note has been reviewed by physician. Signing provider agrees with the documented findings, assessment, and plan of care. Past Medical History Past Medical History: Atrial Fibrillation, Heart Failure, COPD, Pneumonia Additional Past Medical History / Comment(s): PACEMAKER. SEE DR Mahajan. History of Any Multi-Drug Resistant Organisms: None Reported Past Surgical History: Pacemaker Additional Past Surgical History / Comment(s): OPEN HEART, MITRAL VALVE REPAIRED 2009. PACEMAKER 2010 - [employer] Past Anesthesia/Blood Transfusion Reactions: No Reported Reaction Type of Cardiac Device: Biventricular Pacemaker Device Placement Date:: 2009 Past Psychological History: No Psychological Hx Reported Smoking Status: Never smoker Past Alcohol Use History: None Reported Past Drug Use History: None Reported - Past Family History Mother Family Medical History: No Reported History Medications and Allergies Home Medications Medication Instructions Recorded Confirmed Type Albuterol Inhaler [Ventolin Hfa 2 puff INHALATION RT-QID PRN 01/20/23 01/20/23 History Inhaler] Escitalopram [Lexapro] 10 mg PO DAILY 01/20/23 01/20/23 History Ferrous Sulfate [Feosol] 325 mg PO DAILY 01/20/23 01/20/23 History Furosemide [Lasix] 20 mg PO DAILY 01/20/23 01/20/23 History Metoprolol Tartrate [Lopressor] 50 mg PO BID-W/MEALS 01/20/23 01/20/23 History Potassium Chloride ER [K-Dur 20] 20 meq PO DAILY 01/20/23 01/20/23 History Prochlorperazine [Compazine] 10 mg PO BID PRN 01/20/23 01/20/23 History Warfarin [Coumadin] 2 mg PO HS@1800 01/20/23 01/20/23 History Allergies Allergy/AdvReac Type Severity Reaction Status Date / Time Sulfa (Sulfonamide Allergy Rash/Hives Verified 01/20/23 17:24 Antibiotics) ibuprofen [From Motrin] AdvReac Itching Verified 01/20/23 17:24 ondansetron [From Zofran] AdvReac Nausea Verified 01/20/23 17:24 Physical Exam Vitals: Vital Signs Temp Pulse Pulse Resp BP BP Pulse Ox 01/21/23 08:26 95 01/21/23 08:00 99.4 F 58 L 16 143/60 93 L 01/21/23 04:00 61 20 159/65 93 L 01/21/23 02:35 97.9 F 62 18 128/63 100 01/21/23 02:15 62 18 104/48 99 01/20/23 23:08 60 16 96/41 95 01/20/23 19:07 67 18 128/56 100 01/20/23 18:00 60 18 131/51 94 L 01/20/23 15:46 67 20 110/74 100 01/20/23 13:21 98.1 F 59 L 22 98/49 93 L Intake and Output 01/20/23 01/21/23 01/21/23 22:59 06:59 14:59 Intake Total 240 Balance 240 Intake: Oral 240 Other: Voiding Method Bedside Commode Weight 40.5 kg Results 01/21/23 08:32 01/21/23 08:32 Cardiac Enzymes 01/20/23 01/20/23 01/20/23 Range/Units 14:12 14:12 18:31 AST 40 H (14-36) U/L Troponin I 0.025 0.024 (0.000-0.034) ng/mL 01/20/23 Range/Units 21:10 AST (14-36) U/L Troponin I 0.030 (0.000-0.034) ng/mL Coagulation 01/20/23 01/21/23 Range/Units 14:12 08:32 PT 25.5 H 26.2 H (9.0-12.0) sec APTT 38.4 H (22.0-30.0) sec CBC 01/20/23 01/21/23 Range/Units 14:12 08:32 WBC 5.1 7.8 (3.8-10.6) k/uL RBC 3.93 3.82 (3.80-5.40) m/uL Hgb 12.6 12.3 (11.4-16.0) gm/dL Hct 39.4 37.6 (34.0-46.0) % Plt Count 103 L 101 L (150-450) k/uL Comprehensive Metabolic Panel 01/20/23 01/21/23 Range/Units 14:12 08:32 Sodium 139 138 (137-145) mmol/L Potassium 4.4 3.9 (3.5-5.1) mmol/L Chloride 107 103 (98-107) mmol/L Carbon Dioxide 24 26 (22-30) mmol/L BUN 37 H 37 H (7-17) mg/dL Creatinine 1.14 H 1.38 H (0.52-1.04) mg/dL Glucose 92 125 H (74-99) mg/dL Calcium 8.5 8.5 (8.4-10.2) mg/dL AST 40 H (14-36) U/L ALT 31 (4-34) U/L Alkaline Phosphatase 119 (38-126) U/L Total Protein 6.2 L (6.3-8.2) g/dL Albumin 3.3 L (3.5-5.0) g/dL Current Medications Generic Name Dose Route Start Last Admin Trade Name Freq PRN Reason Stop Dose Admin Escitalopram Oxalate 10 mg 01/21/23 09:00 01/21/23 08:16 Escitalopram 10 Mg Tab PO 10 mg DAILY MARGARET Administration Furosemide 40 mg 01/20/23 21:00 01/21/23 06:12 Furosemide 10 Mg/Ml 4 Ml Vial IV 40 mg Q12HR MARGARET Administration Metoprolol Tartrate 50 mg 01/21/23 07:30 01/21/23 08:16 Metoprolol Tartrate 50 Mg Tab PO 50 mg BID-W/MEALS MARGARET Administration Miscellaneous Information 0 each 01/21/23 09:38 Warfarin Per Pharmacy MISCELLANE DIRECTED PRN PER PROTOCOL Naloxone HCl 0.2 mg 01/20/23 17:59 Naloxone 0.4 Mg/Ml 1 Ml Vial IV Q2M PRN Opioid Reversal Potassium Chloride 20 meq 01/21/23 09:00 01/21/23 08:16 Potassium Chloride Er 20 Meq Tab.Er PO 20 meq DAILY MARGARET Administration Prochlorperazine Maleate 10 mg 01/20/23 18:00 Prochlorperazine 10 Mg Tab PO BID PRN Nausea Warfarin Sodium 2 mg 01/20/23 18:00 01/20/23 18:52 Warfarin 2 Mg Tab PO 2 mg [id number] MARGARET Administration Protocol Intake and Output 01/20/23 01/21/23 01/21/23 22:59 06:59 14:59 Intake Total 240 Balance 240 Intake: Oral 240 Other: Voiding Method Bedside Commode Weight 40.5 kg 01/21/23 08:32 01/21/23 08:32
--- NOTE | 2023-01-21 10:55 | P.CNPUL ---
History of Present Illness Consult date: 01/21/23 Requesting physician: Marta Gold Reason for consult: dyspnea, hypoxemia, pleural effusion, abnormal CXR/CT Chief complaint: Shortness of breath/weakness. History of present illness: Pulmonary/critical care consult dated 01/21/2023. 87-year-old female seen in consultation today, room 361. She presented to the emergency department on January 20 complaining of shortness of breath. Apparently he been going on for at least 10-14 days prior to admission. Apparently was recently diagnosed with pneumonia, and placed on treatment for that, but did not improve. In addition, she was profoundly weak. She denies any chest pain. She did have worsening lower extremity edema. She has a history of chronic atrial fibrillation, on Coumadin, heart failure, and an artificial valve. In addition, she sees a local family doctor, and a local insurance application investigator although she's not been back to the insurance application investigator and some time. She denies any fever or chills. There is no chest pain or chest discomfort. She denies any GI or issues. I see her in room 361. She's currently on 4 L of nasal O2. She's not receiving any IV fluids. White count 7.8, hemoglobin 12.3, hematocrit 37.6, and platelet count 101,000. PTT was 26.2 with an INR 2.7. Sodium 138, potassium 3.9, chlorides 103, CO2 26, BUN 37, creatinine 1.38. Testing for influenza, A and B, RSV, and coronavirus were all negative. The patient's N-terminal proBNP was quite elevated at 7030. Chest x-ray shows changes of bilateral infiltrates and small bilateral effusions, with interstitial edema, and cardiomegaly. Review of Systems REVIEW OF SYSTEMS: CONSTITUTIONAL: Weakness and fatigue. NEUROLOGIC: [ Negative.] HEENT: [ Negative.] CARDIAC: [Negative.] PULMONARY: Shortness of breath. GI: [Negative.] : [Negative.] RHEUMATOLOGIC: [ Negative.] IMMUNOLOGIC: [ Negative.] ENDOCRINE: [Negative. ] DERMATOLOGIC: [Negative.] Past Medical History Past Medical History: Atrial Fibrillation, Heart Failure, COPD, Pneumonia Additional Past Medical History / Comment(s): PACEMAKER. SEE DR Mahajan. History of Any Multi-Drug Resistant Organisms: None Reported Past Surgical History: Pacemaker Additional Past Surgical History / Comment(s): OPEN HEART, MITRAL VALVE REPAIRED 2009. PACEMAKER 2010 - [employer]. Past Anesthesia/Blood Transfusion Reactions: No Reported Reaction Type of Cardiac Device: Biventricular Pacemaker Device Placement Date:: 2009 Past Psychological History: No Psychological Hx Reported Smoking Status: Never smoker Past Alcohol Use History: None Reported Past Drug Use History: None Reported - Past Family History Mother Family Medical History: No Reported History Medications and Allergies Home Medications Medication Instructions Recorded Confirmed Type Albuterol Inhaler [Ventolin Hfa 2 puff INHALATION RT-QID PRN 01/20/23 01/20/23 History Inhaler] Escitalopram [Lexapro] 10 mg PO DAILY 01/20/23 01/20/23 History Ferrous Sulfate [Feosol] 325 mg PO DAILY 01/20/23 01/20/23 History Furosemide [Lasix] 20 mg PO DAILY 01/20/23 01/20/23 History Metoprolol Tartrate [Lopressor] 50 mg PO BID-W/MEALS 01/20/23 01/20/23 History Potassium Chloride ER [K-Dur 20] 20 meq PO DAILY 01/20/23 01/20/23 History Prochlorperazine [Compazine] 10 mg PO BID PRN 01/20/23 01/20/23 History Warfarin [Coumadin] 2 mg PO HS@1800 01/20/23 01/20/23 History Allergies Allergy/AdvReac Type Severity Reaction Status Date / Time Sulfa (Sulfonamide Allergy Rash/Hives Verified 01/20/23 17:24 Antibiotics) ibuprofen [From Motrin] AdvReac Itching Verified 01/20/23 17:24 ondansetron [From Zofran] AdvReac Nausea Verified 01/20/23 17:24 Physical Exam Osteopathic Statement: *. No significant issues noted on an osteopathic structural exam other than those noted in the History and Physical/Consult. Vitals: Vital Signs Temp Pulse Pulse Resp BP BP Pulse Ox 01/21/23 08:26 95 01/21/23 08:00 99.4 F 58 L 16 143/60 93 L 01/21/23 04:00 61 20 159/65 93 L 01/21/23 02:35 97.9 F 62 18 128/63 100 01/21/23 02:15 62 18 104/48 99 01/20/23 23:08 60 16 96/41 95 01/20/23 19:07 67 18 128/56 100 01/20/23 18:00 60 18 131/51 94 L 01/20/23 15:46 67 20 110/74 100 01/20/23 13:21 98.1 F 59 L 22 98/49 93 L Intake and Output 01/20/23 01/21/23 01/21/23 22:59 06:59 14:59 Intake Total 240 Balance 240 Intake: Oral 240 Other: Voiding Method Bedside Commode Weight 40.5 kg No acute distress, mild tachypnea, oriented. HEENT examination is grossly unremarkable. Neck supple. Full range of motion. No adenopathy thyromegaly or neck vein distention. Cardiovascular examination reveals regular rhythm rate. S1-S2 normal. No S3 or S4. No discernible murmur noted. Heart sounds are distant. Heart rate about 60 bpm. Lungs reveal scattered bibasilar crackles and rhonchi. No wheezes. Slight dullness on percussion. Breath sounds are equal bilaterally. Saturations are 95% on 4 L. Abdomen soft bowel sounds are heard. No masses or tenderness. Extremities are intact. No cyanosis or clubbing. 1+ edema is noted. Skin is without rash or lesion. Neurologic examination is brief but nonfocal. Results - Laboratory Findings CBC and BMP: 01/21/23 08:32 01/21/23 08:32 PT/INR, D-dimer PT 26.2 sec (9.0-12.0) H 01/21/23 08:32 INR 2.7 (<1.2) H 01/21/23 08:32 Abnormal lab findings: Abnormal Labs 01/20/23 01/20/23 01/20/23 14:12 14:12 14:12 MCV 100.1 H Plt Count 103 L Lymphocytes # 0.7 L PT 25.5 H INR 2.6 H APTT 38.4 H BUN 37 H Creatinine 1.14 H Glucose AST 40 H Total Protein 6.2 L Albumin 3.3 L 01/21/23 01/21/23 01/21/23 08:32 08:32 08:32 MCV Plt Count 101 L Lymphocytes # 0.4 L PT 26.2 H INR 2.7 H APTT BUN 37 H Creatinine 1.38 H Glucose 125 H AST Total Protein Albumin - Diagnostic Findings Chest x-ray: image reviewed Assessment and Plan Assessment: Shortness of breath, acute on chronic, likely secondary to CHF exacerbation (chronic diastolic dysfunction). History of chronic atrial fibrillation. History of sick sinus syndrome. Status post mitral and tricuspid valve repair History of congestive heart failure. History of pneumonia. Status post pacemaker implantation. Lifelong nontobacco use. Plan: Plan dated 01/21/2023. I think the patient's overall clinical picture fits that of chronic diastolic CHF, with an acute component. Over the last 10 days or so, she's been doing worse. She is not manifesting anything that would suggest pneumonia such as fever, chills, cough, or phlegm production. Nonetheless, I will check a pro- calcitonin level. Labs, x-rays, and medications are reviewed. She is a lifelong nonsmoker. It's doubtful that she has underlying COPD. We will continue to follow along and make recommendations where appropriate. Time with Patient: Greater than 30
--- NOTE | 2023-01-21 11:19 | CA ---
Transthoracic Echo Report Name: Kristin Case Age: 87 Gender: F : 1935 Exam Date: 01/21/2023 09:09 Exam Location: [facility] Ht (in): 60 Wt (lb): 89 Ordering Physician: Clifton Broussard MD Attending/Referring Phys: Echocardiography Tech Shaista Wright RDCS Procedure CPT: Indications: chf Cardiac Hx: Technical Quality: Fair Contrast 1: Total Dose (mL): Contrast 2: Total Dose (mL): MEASUREMENTS (Male / Female) Normal Values M-MODE Aortic Root Diameter MM 2.2 cm MV E Point Septal Separation 0.8 cm AV Cusp Separation MM 1.5 cm DOPPLER AV Peak Velocity 117.3 cm/s AV Peak Gradient 5.5 mmHg AI Peak Velocity 222.8 cm/s AI Peak Gradient 19.9 mmHg AI Pressure Half Time 299.0 ms LVOT Peak Velocity 108.7 cm/s LVOT Peak Gradient 4.7 mmHg MV Peak Velocity 229.8 cm/s MV Peak Gradient 21.1 mmHg MV Mean Velocity 106.8 cm/s MV Mean Gradient 6.3 mmHg MV Velocity Time Integral 64.6 cm TR Peak Velocity 424.0 cm/s TR Peak Gradient 71.9 mmHg Right Atrial Pressure 15.0 mmHg Pulmonary Artery Systolic Pressu 86.9 mmHg Right Ventricular Systolic Press 86.9 mmHg PV Peak Velocity 92.6 cm/s PV Peak Gradient 3.4 mmHg FINDINGS Left Ventricle Left ventricular dilatation. Left ventricular wall thickness normal. Left ventricular ejection fraction is estimated at 45-50 %. Right Ventricle Right ventricular dilatation. Severe pulmonary hypertension. Right Atrium Right atrial dilatation. Catheter/pacemaker wire in the right atrial cavity. Left Atrium Left atrial dilatation. Mitral Valve Mitral valve repair 2009. No mitral regurgitation. Aortic Valve Aortic valve sclerosis. Moderate aortic regurgitation. No aortic stenosis. Tricuspid Valve Moderate tricuspid regurgitation. Pulmonic Valve Mild pulmonic regurgitation. Pericardium Possibly small pericardial effusion, however, pericardium not well visualized. Aorta Normal size aortic root and proximal ascending aorta. CONCLUSIONS Mild LV dysfunction with an ejection fraction of 45% Status post mitral valve repair Severe pulmonary hypertension Previewed by: Dr. Anastacio Duncan MD (Electronically Signed) Final Date: 21 January 2023 11:19
[2023-01-21 11:42] LABS: Prothrombin Time 29.3 sec (9.0-12.0)
[2023-01-21] MEDS ORDERED: LACTULOSE 20 GM/30 ML CUP PO PRN (12:29)
[2023-01-21] MEDS ORDERED: LORazepam 0.5 MG TAB PO PRN (12:29)
[2023-01-21] MEDS ORDERED: MELATONIN 3 MG TABLET PO PRN (12:29)
[2023-01-21] MEDS ORDERED: ONDANSETRON 4 MG/2 ML VIAL IVP PRN (12:29)
[2023-01-21] MEDS ORDERED: CALCIUM CARBONATE 500 MG CHEWABLE PO PRN (12:29)
[2023-01-21] MEDS: guaiFENesin 600 MG TABLET.ER PO SCH ×3 (15:53→20:27)
[2023-01-21] MEDS ORDERED: WARFARIN 0.5 MG TAB PO ONE (18:00)
--- NOTE | 2023-01-21 21:12 | P.HPIM ---
History of Present Illness H&P Date: 01/21/23 Chief Complaint: Cough Patient is a very pleasant 87-year-old female, follows with Dr. Eric with a past medical history of CAD with previous mitral valve repair, congestive heart failure, and paroxysmal atrial fibrillation on anticoagulation with Coumadin. Now presents with 3 days of cough short of breath congested. No sputum production. Decrease appetite no fever and chills. Weak tired rundown. Patient is due to her son and uses a walker. Review of systems: GEN.: Tired, decreased appetite EYES: None HEENT: None NECK: None RESPIRATORY: As above CARDIOVASCULAR: None GASTROINTESTINAL: None GENITOURINARY: None MUSCULOSKELETAL: Some joint pain LYMPHATICS: None HEMATOLOGICAL: None PSYCHIATRY: None NEUROLOGICAL: Uses a walker Past medical history to include: Atrial fibrillation, CHF, COPD, pacemaker biventricular mitral valve repaired Social history: Lives son. Walker. No smoking Physical examination: VITAL SIGNS: 99.4, 58, 16, 143/60, 93% on 4 L GENERAL: BMI 17.4, declining in bed tired also muscle mass, prominent bones. EYES: Pupils equal. Conjunctiva normal. HEENT: External appearance of nose and ears normal, oral cavity grossly normal. NECK: JVD not raised; masses not palpable. HEART: First and second heart sounds are normal; no edema. LUNGS: Respiratory rate increased; decreased breath sounds. ABDOMEN: Soft, nontender, liver spleen not palpable, no masses palpable. PSYCH: [Alert and oriented x3; mood and affect tired l. MUSCULOSKELETAL:No Clubbing/cyanosis;muscles-grossly intact. Muscle muscle mass, prominent bones NEUROLOGICAL: Cranial nerves grossly intact; no facial asymmetry, power and sensation grossly intact. LYMPHATICS: No lymph nodes palpable in the axilla and neck INVESTIGATIONS, reviewed in the clinical context: January 21: White count 7.8 hemoglobin 12.3 platelets 101 INR 2.7 sodium 138 potassium 3.9 BUN 37 creatinine 1.38 Procalcitonin 0.41 EKG tracing personally reviewed by me-ventricle raised rhythm. Rate 61 Chest x-ray film personally reviewed by me-basilar infiltrate. Previous tests 2-D echocardiogram: February 2022] Severely dilated right ventricle, left atrium. Intubated mitral valve with evidence of moderate mitral stenosis. Aortic scle rosis. Severe pulmonary hypertension. EF 55-60%. Assessment and plan: -Pneumonia suspect gram-negative organism. IV ceftriaxone. Sputum. Blood culture. Mucinex. -Acute on chronic congestive heart exacerbation from diastolic dysfunction per cardiology. Lasix 40 mg IV every 12. 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 -Primary osteoarthritis multiple joints bilaterally Tylenol as needed - chronic medical debility Fall precautions. PT OT -Coumadin monitoring Follow INR -Gait dysfunction from debility, osteoarthritis walker. -DO NOT RESUSCITATE Past Medical History Past Medical History: Atrial Fibrillation, Heart Failure, COPD, Pneumonia Additional Past Medical History / Comment(s): PACEMAKER. SEE DR Mahajan. History of Any Multi-Drug Resistant Organisms: None Reported Past Surgical History: Pacemaker Additional Past Surgical History / Comment(s): OPEN HEART, MITRAL VALVE REPAIRED 2009. PACEMAKER 2009 - [employer]. Past Anesthesia/Blood Transfusion Reactions: No Reported Reaction Type of Cardiac Device: Biventricular Pacemaker Device Placement Date:: 2009 Past Psychological History: No Psychological Hx Reported Smoking Status: Never smoker Past Alcohol Use History: None Reported Past Drug Use History: None Reported - Past Family History Mother Family Medical History: No Reported History Medications and Allergies Home Medications Medication Instructions Recorded Confirmed Type Albuterol Inhaler [Ventolin Hfa 2 puff INHALATION RT-QID PRN 01/20/23 01/20/23 History Inhaler] Escitalopram [Lexapro] 10 mg PO DAILY 01/20/23 01/20/23 History Ferrous Sulfate [Feosol] 325 mg PO DAILY 01/20/23 01/20/23 History Furosemide [Lasix] 20 mg PO DAILY 01/20/23 01/20/23 History Metoprolol Tartrate [Lopressor] 50 mg PO BID-W/MEALS 01/20/23 01/20/23 History Potassium Chloride ER [K-Dur 20] 20 meq PO DAILY 01/20/23 01/20/23 History Prochlorperazine [Compazine] 10 mg PO BID PRN 01/20/23 01/20/23 History Warfarin [Coumadin] 2 mg PO HS@1800 01/20/23 01/20/23 History Allergies Allergy/AdvReac Type Severity Reaction Status Date / Time Sulfa (Sulfonamide Allergy Rash/Hives Verified 01/20/23 17:24 Antibiotics) ibuprofen [From Motrin] AdvReac Itching Verified 01/20/23 17:24 ondansetron [From Zofran] AdvReac Nausea Verified 01/20/23 17:24 Physical Exam Vitals: Vital Signs Temp Pulse Pulse Resp BP BP Pulse Ox 01/21/23 08:26 95 01/21/23 08:00 99.4 F 58 L 16 143/60 93 L 01/21/23 04:00 61 20 159/65 93 L 01/21/23 02:35 97.9 F 62 18 128/63 100 01/21/23 02:15 62 18 104/48 99 01/20/23 23:08 60 16 96/41 95 01/20/23 19:07 67 18 128/56 100 01/20/23 18:00 60 18 131/51 94 L 01/20/23 15:46 67 20 110/74 100 01/20/23 13:21 98.1 F 59 L 22 98/49 93 L Intake and Output 01/20/23 01/21/23 01/21/23 22:59 06:59 14:59 Intake Total 240 Balance 240 Intake: Oral 240 Other: Voiding Method Bedside Commode Bedside Commode Weight 40.5 kg Results CBC & Chem 7: 01/21/23 08:32 01/21/23 08:32 Labs: Abnormal Lab Results - Last 24 Hours (Table) 01/20/23 01/20/23 01/20/23 Range/Units 14:12 14:12 14:12 MCV 100.1 H (80.0-100.0) fL Plt Count 103 L (150-450) k/uL Lymphocytes # 0.7 L (1.0-4.8) k/uL PT 25.5 H (9.0-12.0) sec INR 2.6 H (<1.2) APTT 38.4 H (22.0-30.0) sec BUN 37 H (7-17) mg/dL Creatinine 1.14 H (0.52-1.04) mg/dL Glucose (74-99) mg/dL AST 40 H (14-36) U/L Total Protein 6.2 L (6.3-8.2) g/dL Albumin 3.3 L (3.5-5.0) g/dL 01/21/23 01/21/23 01/21/23 Range/Units 08:32 08:32 08:32 MCV (80.0-100.0) fL Plt Count 101 L (150-450) k/uL Lymphocytes # 0.4 L (1.0-4.8) k/uL PT 26.2 H (9.0-12.0) sec INR 2.7 H (<1.2) APTT (22.0-30.0) sec BUN 37 H (7-17) mg/dL Creatinine 1.38 H (0.52-1.04) mg/dL Glucose 125 H (74-99) mg/dL AST (14-36) U/L Total Protein (6.3-8.2) g/dL Albumin (3.5-5.0) g/dL Thrombosis Risk Factor Assmnt - Choose All That Apply Any of the Below Risk Factors Present?: Yes Each Risk Factor Represents 3 Points: Age 75 years or older Thrombosis Risk Factor Assessment Total Risk Factor Score: 3 Thrombosis Risk Factor Assessment Level: Moderate Risk
[2023-01-21] MEDS: IPRATROPIUM-ALBUTEROL 3 ML NEB INHALATION SCH (21:53)
[2023-01-22] MEDS: METOPROLOL TARTRATE 50 MG TAB PO SCH ×2 (06:24→16:54)
[2023-01-22] MEDS: ESCITALOPRAM 10 MG TAB PO SCH (08:42)
[2023-01-22] MEDS: guaiFENesin 600 MG TABLET.ER PO SCH ×4 (08:42→21:36)
[2023-01-22] MEDS: FERROUS SULFATE 325 MG TAB PO SCH (08:42)
[2023-01-22] MEDS: POTASSIUM CHLORIDE ER 20 MEQ TAB.ER PO SCH (08:42)
[2023-01-22] MEDS: FUROSEMIDE 10 MG/ML 4 ML VIAL IV SCH (08:43)
[2023-01-22] MEDS: IPRATROPIUM-ALBUTEROL 3 ML NEB INHALATION SCH ×3 (09:23→22:12)
[2023-01-22 09:33] LABS: Calcium 8.4 mg/dL (8.4-10.2); Potassium 3.6 mmol/L (3.5-5.1)
--- NOTE | 2023-01-22 10:27 | P.PN ---
Subjective Progress Note Date: 01/22/23 87-year-old female seen in consultation today, room 361. She presented to the emergency department on January 20 complaining of shortness of breath. Apparently he been going on for at least 10-14 days prior to admission. Apparently was recently diagnosed with pneumonia, and placed on treatment for that, but did not improve. In addition, she was profoundly weak. She denies any chest pain. She did have worsening lower extremity edema. She has a history of chronic atrial fibrillation, on Coumadin, heart failure, and an artificial valve. In addition, she sees a local family doctor, and a local natural sciences department chair although she's not been back to the natural sciences department chair and some time. She denies any fever or chills. There is no chest pain or chest discomfort. She denies any GI or issues. I see her in room 361. She's currently on 4 L of nasal O2. She's not receiving any IV fluids. White count 7.8, hemoglobin 12.3, hematocrit 37.6, and platelet count 101,000. PTT was 26.2 with an INR 2.7. Sodium 138, potassium 3.9, chlorides 103, CO2 26, BUN 37, creatinine 1.38. Testing for influenza, A and B, RSV, and coronavirus were all negative. The patient's N-terminal proBNP was quite elevated at 7030. Chest x-ray shows changes of bilateral infiltrates and small bilateral effusions, with interstitial edema, and cardiomegaly. On today's evaluation of 2022, the patient is being seen for a follow-up. She is currently on 3 L of oxygen by nasal cannula. Mobility is very limited and she is working with physical therapy. She is slightly improved compared to yesterday. Echo cardiac rhythm was done and the patient has a LV ejection fraction of 45-50%. The patient has undergone previous mitral valve repair. She has moderate tricuspid regurgitation, severe pulmonary hypertension, she al so has moderate aortic regurgitation. The INR today is at 3.0 with a PT of 29. Penis 44 with a creatinine of 1.4 and a sodium level is at 139. Pro-calcitonin level is at 0.41. The patient is currently on Lasix 20 mg by mouth twice a day. The patient is on empiric antibiotic coverage with IV Rocephin. Objective - Vital Signs Vital signs: Vital Signs Temp 97.5 F L 01/22/23 08:00 Pulse 58 L 01/22/23 09:24 Resp 16 01/22/23 09:24 BP 101/49 01/22/23 08:00 Pulse Ox 97 01/22/23 09:24 FiO2 Intake & Output 01/21/23 01/22/23 01/22/23 18:59 06:59 18:59 Intake Total 240 118 Output Total 800 Balance 240 -682 Weight 40.5 kg 39 kg Intake: Oral 240 118 Output: Urine 800 Other: Voiding Method Bedside Commode Bedside Commode # Voids 1 - Exam No acute distress, mild tachypnea, oriented. Currently on 3 L of oxygen nasal cannula HEENT examination is grossly unremarkable. Neck supple. Full range of motion. No adenopathy thyromegaly or neck vein distention. Cardiovascular examination reveals regular rhythm rate. S1-S2 normal. No S3 or S4. No discernible murmur noted. Heart sounds are distant. Lungs reveal scattered bibasilar crackles and rhonchi. No wheezes. Slight dullness on percussion. Breath sounds are equal bilaterally. Abdomen soft bowel sounds are heard. No masses or tenderness. Extremities are intact. No cyanosis or clubbing. 1+ edema is noted. Skin is without rash or lesion. Neurologic examination is brief but nonfocal. - Labs CBC & Chem 7: 01/21/23 08:32 01/22/23 07:49 Labs: Abnormal Lab Results - Last 24 Hours (Table) 01/21/23 01/21/23 01/22/23 Range/Units 11:04 11:04 07:49 PT 29.3 H 29.0 H (9.0-12.0) sec INR 3.0 H 3.0 H (<1.2) BUN (7-17) mg/dL Creatinine (0.52-1.04) mg/dL Glucose (74-99) mg/dL Procalcitonin 0.41 H (0.02-0.09) ng/mL 01/22/23 Range/Units 07:49 PT (9.0-12.0) sec INR (<1.2) BUN 44 H (7-17) mg/dL Creatinine 1.49 H (0.52-1.04) mg/dL Glucose 105 H (74-99) mg/dL Procalcitonin (0.02-0.09) ng/mL Assessment and Plan Plan: Shortness of breath, acute on chronic, likely secondary to CHF exacerbation (chronic diastolic dysfunction). Patient also has a systolic heart failure with valvular heart disease with moderate aortic regurgitation and severe pulmonary hypertension. Acute hypoxic respiratory failure currently on 3 L of oxygen by nasal cannula History of chronic atrial fibrillation. Maintain on anticoagulation warfarin and the patient's INR is therapeutic History of sick sinus syndrome. Status post mitral and tricuspid valve repair Severe pulmonary hypertension secondary to above her heart disease History of congestive heart failure. History of pneumonia. Status post pacemaker implantation. Lifelong nontobacco use. Plan: Wean down FiO2 as tolerated Continue diuretics Physical therapy We'll follow
--- NOTE | 2023-01-22 10:36 | P.PN ---
Subjective Progress Note Date: 01/22/23 HISTORY OF PRESENT ILLNESS: This is a 87-year-old female with a past medical history significant for permanent atrial fibrillation, mitral regurgitation, mitral valve repair, tricuspid valve repair, severe pulmonary hypertension, and congestive heart failure. Patient follows in the office with Dr. Duncan but has not been seen in the office since July 2021. We have been asked to see the patient in consultation for congestive heart failure. Patient examined at the bedside. Georgie gandhi presented to the hospital with a chief complaint of shortness of breath. Patient states that she was recently treated outpatient for pneumonia but her shortness of breath has persisted. She reports a frequent nonproductive cough. She denies any chest pain or pressure. The patient was found to be in acute congestive heart failure. She was started on IV Lasix. The patient continues to report shortness of breath this morning. * EKG reveals ventricular paced rhythm * Chest xray COPD and cardiomegaly with right lower lobe infiltrate and small bilateral pleural effusions. Mild prominence of interstitium. Correlate for CHF exacerbation. * Laboratory data: WBC 7.8. Hemoglobin 12.3. Platelet count 101. INR 2.7. Sodium 138. Potassium 3.9. BUN 37. Creatinine 1.38. Troponin negative 3 * Current home cardiac medications include warfarin 2 mg at night, metoprolol tartrate 50 mg twice a day, and Lasix 20 mg daily * Most recent echocardiogram obtained in February 2022 revealed ejection fraction 55- 60%, moderate to severe pulmonary hypertension, trace MR, moderate to severe mitral stenosis,, severely dilated right ventricle and left atrium. 01/22/2023 Patient examined this morning at the bedside. Patient denies chest pain or pressure. Patient reports improvement in her shortness of breath. She also reports improvement in her cough. She denies any sputum production. She remains on IV Lasix. Creatinine increased today to 1.49. INR 3.0. Echocardiogram obtained revealing ejection fraction 45-50%, severe pulmonary hypertension, moderate aortic regurgitation, moderate tricuspid regurgitation. PHYSICAL EXAM: VITAL SIGNS: Reviewed. GENERAL: Well-developed in no acute distress. HEENT: Head is normocephalic. Pupils are equal, round. Sclerae anicteric. Mucous membranes of the mouth are moist. Neck supple. No JVD or thyromegaly LUNGS: Respirations even and unlabored. Lungs diminished with rhonchi. Noted improvement in lung sounds and cough. HEART: Telemetry reveals paced rhythm. Regular rate and rhythm. S1 and S2 heard. + systolic murmur noted. ABDOMEN: Soft. Nondistended. Nontender. EXTREMITIES: Normal range of motion. No clubbing or cyanosis. Peripheral pulses intact. No lower extremity edema NEUROLOGIC: Awake and alert. Oriented x 3. ASSESSMENT: Shortness of breath, improved Recent outpatient diagnosis of pneumonia Acute on chronic heart failure with mildly reduced EF, 45% Acute kidney injury Permanent atrial fibrillation, on Warfarin outpatient History of sick sinus syndrome status post pacemaker implantation ([employer]) Severe pulmonary hypertension History of tricuspid and mitral valve repair PLAN: Discontinue IV Lasix. Begin oral Lasix 20 mg twice a day Daily weights, accurate I&O, and monitoring of kidney function Continue anticoagulation with Warfarin. Monitor INR. Pulmonary following Further recommendations pending patient course Nurse practitioner note has been reviewed by physician. Signing provider agrees with the documented findings, assessment, and plan of care. Objective - Vital Signs Vital signs: Vital Signs Temp 97.5 F L 01/22/23 08:00 Pulse 58 L 01/22/23 09:24 Resp 16 01/22/23 09:24 BP 101/49 01/22/23 08:00 Pulse Ox 97 01/22/23 09:24 FiO2 Intake & Output 01/21/23 01/22/23 01/22/23 18:59 06:59 18:59 Intake Total 240 118 Output Total 800 Balance 240 -682 Weight 40.5 kg 39 kg Intake: Oral 240 118 Output: Urine 800 Other: Voiding Method Bedside Commode Bedside Commode # Voids 1 - Labs CBC & Chem 7: 01/21/23 08:32 01/22/23 07:49 Labs: Abnormal Lab Results - Last 24 Hours (Table) 01/21/23 01/21/23 01/22/23 Range/Units 11:04 11:04 07:49 PT 29.3 H 29.0 H (9.0-12.0) sec INR 3.0 H 3.0 H (<1.2) BUN (7-17) mg/dL Creatinine (0.52-1.04) mg/dL Glucose (74-99) mg/dL Procalcitonin 0.41 H (0.02-0.09) ng/mL 01/22/23 Range/Units 07:49 PT (9.0-12.0) sec INR (<1.2) BUN 44 H (7-17) mg/dL Creatinine 1.49 H (0.52-1.04) mg/dL Glucose 105 H (74-99) mg/dL Procalcitonin (0.02-0.09) ng/mL
--- NOTE | 2023-01-22 15:54 | CDI ---
Documentation Clarification Form Date: 01/22/2023 3:41:27 PM From: Nadege Grier RN, CCDS Email: [email or web address] Admit Date: 01/20/2023 5:59:00 PM Patient Name: Kristin Case Visit Number: [id number] Discharge Date: ATTENTION: The Clinical Documentation Specialists (CDI) and [facility] Coding Staff appreciate your assistance in clarifying documentation. Please respond to the clarification below the line at the bottom and electronically sign. The CDI & [facility] Coding staff will review the response and follow-up if needed. Please note: Queries are made part of the Legal Health Record. If you have any questions, please contact the author of this message via ITS. Dr. Cuate Bender stage 2 coccyx pressure ulcer is documented by Nursing and the Registered Dietitian. Based on this information and the findings below, is there an additional diagnosis that is clinically appropriate for this patient? History/Risk Factors: CAD with previous mitral valve repair, congestive heart failure, and paroxysmal atrial fibrillation on anticoagulation with Coumadin. Now presents with 3 days of cough short of breath congested. No sputum production. Decrease appetite no fever and chills. Weak tired rundown. Clinical Indicators: BMI 16.8 H&P: "BMI 17.4, loss of muscle mass, prominent bones." 01/21 Nursing note: "pressure injury present on admission. Stage 2 to coccyx. Type 2 partial flap loss, pinpoint opening to coccyx." 01/21 RD: "Underweight. Stage 2 pressure injury to coccyx." Treatment: nutrition supplements. Daily weights. PT/OT Is there an additional diagnosis that is clinically appropriate for this patient? [ + ] Coccyx Pressure Ulcer Stage 2 [ ] Other condition, please specify [ ] Unable to determine MTDD
--- NOTE | 2023-01-22 16:03 | CDI ---
Documentation Clarification Form Date: 01/22/2023 3:54:42 PM From: Nadege Grier RN, CCDS Email: [email or web address] Admit Date: 01/20/2023 5:59:00 PM Patient Name: Kristin Case Visit Number: [id number] Discharge Date: ATTENTION: The Clinical Documentation Specialists (CDI) and [facility] Coding Staff appreciate your assistance in clarifying documentation. Please respond to the clarification below the line at the bottom and electronically sign. The CDI & [facility] Coding staff will review the response and follow-up if needed. Please note: Queries are made part of the Legal Health Record. If you have any questions, please contact the author of this message via ITS. Dr. Cuate Carroll The Registered Dietitian assessment on 01/21 indicates this patient is underweight and has severe weight loss. Based on this information and the findings below, is there an additional diagnosis that is clinically appropriate for this patient? History/Risk Factors: CAD with previous mitral valve repair, congestive heart failure, and paroxysmal atrial fibrillation on anticoagulation with Coumadin. Now presents with 3 days of cough short of breath congested. No sputum production. Decrease appetite no fever and chills. Weak tired rundown. Currently bedbound. Clinical Indicators: Stage 2 pressure injury to coccyx. 01/21 Consult Assessment: patient appears underweight with muscle and or fat wasting. Current BMI: 17.9 Insufficient energy intake: poor po intake, poor appetite Weight Loss: 12.6kg (23.7%) severe weight loss x11 months H&P: "BMI 17.4, loss of muscle mass, prominent bones." Treatment: Ensure plus, general healthful diet, monitor po intake, daily weights Lab monitoring: Daily Is there an additional diagnosis that is clinically appropriate for this patient? [ ] Mild Protein-Calorie Malnutrition [ ] Moderate Protein-Calorie Malnutrition [ + ] Severe Protein-Calorie Malnutrition [ ] No additional diagnosis/Not clinically significant [ ] Other condition, please specify [ ] Unable to Determine MTDD
[2023-01-22] MEDS: FUROSEMIDE 20 MG TAB PO SCH (16:54)
--- NOTE | 2023-01-22 17:59 | P.PN ---
Progress Note - Text Progress Note Date: 01/22/23 Chief Complaint: Cough Patient is a very pleasant 87-year-old female, follows with Dr. Eric with a past medical history of CAD with previous mitral valve repair, congestive heart failure, and paroxysmal atrial fibrillation on anticoagulation with Coumadin. Now presents with 3 days of cough short of breath congested. No sputum production. Decrease appetite no fever and chills. Weak tired rundown. Patient is due to her son and uses a walker. Admitted with pneumonia, acute CHF exacerbation. Started on IV Lasix, IV ceftriaxone. January 22: Up in a chair. Feeling short of breath. Less congested. 4 L nasal cannula. Per cardiology Lasix changed over to by mouth. Continue IV ceftriaxone. Discussed with the patient. Start incentive spirometry. Active Medications Acetaminophen (Acetaminophen Tab 325 Mg Tab) 650 mg PO Q6HR PRN PRN Reason: Mild Pain or Fever > 100.5 Albuterol/Ipratropium (Ipratropium-Albuterol 3 Ml Neb) 3 ml INHALATION RT-TID [facility] Last Admin: 01/22/23 13:21 Dose: 3 ml Calcium Carbonate/Glycine (Calcium Carbonate 500 Mg Chewable) 1,000 mg PO Q4HR PRN PRN Reason: Dyspepsia Escitalopram Oxalate (Escitalopram 10 Mg Tab) 10 mg PO DAILY [facility] Last Admin: 01/22/23 08:42 Dose: 10 mg Ferrous Sulfate (Ferrous Sulfate 325 Mg Tab) 325 mg PO DAILY [facility] Last Admin: 01/22/23 08:42 Dose: 325 mg Furosemide (Furosemide 20 Mg Tab) 20 mg PO BID@0900,1600 [facility] Last Admin: 01/22/23 16:54 Dose: 20 mg Guaifenesin (Guaifenesin 600 Mg Tablet.Er) 600 mg PO QID [facility] Last Admin: 01/22/23 16:55 Dose: 600 mg Ceftriaxone Sodium 1 gm/ (Sodium Chloride) 50 mls @ 100 mls/hr IVPB Q24HR [facility]; Protocol Last Admin: 01/22/23 08:43 Dose: 100 mls/hr Lactulose (Lactulose 20 Gm/30 Ml Cup) 20 gm PO DAILY PRN PRN Reason: Constipation Lorazepam (Lorazepam 0.5 Mg Tab) 0.5 mg PO Q6HR PRN PRN Reason: Anxiety Last Admin: 01/21/23 17:50 Dose: 0.5 mg Melatonin (Melatonin 3 Mg Tablet) 3 mg PO HS PRN PRN Reason: Insomnia Metoprolol Tartrate (Metoprolol Tartrate 50 Mg Tab) 50 mg PO BID-W/MEALS [facility] Last Admin: 01/22/23 16:54 Dose: Not Given Miscellaneous Information (Warfarin Per Pharmacy) 0 each MISCELLANE DIRECTED PRN PRN Reason: PER PROTOCOL Naloxone HCl (Naloxone 0.4 Mg/Ml 1 Ml Vial) 0.2 mg IV Q2M PRN PRN Reason: Opioid Reversal Ondansetron HCl (Ondansetron 4 Mg/2 Ml Vial) 4 mg IVP Q8HR PRN PRN Reason: Nausea And Vomiting Potassium Chloride (Potassium Chloride Er 20 Meq Tab.Er) 20 meq PO DAILY [facility] Last Admin: 01/22/23 08:42 Dose: 20 meq Prochlorperazine Maleate (Prochlorperazine 10 Mg Tab) 10 mg PO BID PRN PRN Reason: Nausea Warfarin Sodium (Warfarin 1.5 Mg Tab) 1.5 mg PO ONCE@1800 ONE Stop: 01/22/23 18:01 Last Admin: 01/22/23 16:54 Dose: 1.5 mg Past medical history to include: Atrial fibrillation, CHF, COPD, pacemaker biventricular mitral valve repaired Social history: Lives son. Walker. No smoking Physical examination: VITAL SIGNS: 97.5, 57, 16, 101/49, 97% on 4 L GENERAL: BMI 17.4, up in a chair, tired, decreased muscle mass, prominent bones. EYES: Pupils equal. Conjunctiva normal. HEENT: External appearance of nose and ears normal, oral cavity grossly normal. NECK: JVD not raised; masses not palpable. HEART: First and second heart sounds are normal; no edema. LUNGS: Respiratory rate increased; decreased breath sounds. ABDOMEN: Soft, nontender, liver spleen not palpable, no masses palpable. PSYCH: [Alert and oriented x3; mood and affect tired MUSCULOSKELETAL:No Clubbing/cyanosis;muscles-grossly intact. Muscle muscle mass, prominent bones INVESTIGATIONS, reviewed in the clinical context: 2-D echocardiogram: EF 45-50%. Severe pulmonary hypertension. Pacemaker wire in the right atrial cavity. Moderate aortic regurgitation. Moderate tricuspid regurgitation. January 22: INR 3 potassium 3.6 BUN 44 creatinine 1.49 January 21: White count 7.8 hemoglobin 12.3 platelets 101 INR 2.7 sodium 138 potassium 3.9 BUN 37 creatinine 1.38 Procalcitonin 0.41 EKG tracing personally reviewed by sinus rhythm. Rate 61 Chest x-ray film personally reviewed by me-basilar infiltrate. UA: Unremarkable Assessment and plan: -Pneumonia suspect gram-negative organism.: Slow to respond IV ceftriaxone. Sputum. Blood culture. Mucinex. -Acute on chronic congestive heart exacerbation from diastolic dysfunction EF 45-50% per cardiology.: Better IV Lasix changed over to by mouth Lasix Follow with cardiology -Acute hypoxic respiratory failure from pneumonia, CHF exacerbation Currently on 4 L. 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 -Primary osteoarthritis multiple joints bilaterally Tylenol as needed - chronic medical debility Fall precautions. PT OT -Coumadin monitoring Follow INR -Gait dysfunction from debility, osteoarthritis walker. -DO NOT RESUSCITATE Change from IV Lasix to by mouth Lasix. Continue ceftriaxone. Add incentive spirometry. Discussed with patient. Repeat checks x-ray tomorrow
[2023-01-22] MEDS ORDERED: WARFARIN 1.5 MG TAB PO ONE (18:00)
--- NOTE | 2023-01-22 20:46 | US ---
EXAMINATION TYPE: US kidneys/renal and bladder DATE OF EXAM: 01/22/2023 COMPARISON: CT:02/19/22 CLINICAL INDICATION: Female, 87 years old with history of Evaluate for CKD; CKD EXAM MEASUREMENTS: Right Kidney: 7.6 x 5.5 x 3.6 cm Left Kidney: 8.0 x 3.2 x 5.0 cm Right Kidney: No hydronephrosis or masses seen Left Kidney: Dilated renal pelvis. Limited due to ribs and bowel Bladder: wnl Bilateral Jets seen: Only left jet visualized. There is no evidence for hydronephrosis at this point in time. Prominent left renal pelvis. No nephro lithiasis is seen. Bilateral renal cortical increased echogenicity. No masses are identified. The ur inary bladder is anechoic. Only the left ureteral jet visualized. IMPRESSION: 1. No hydronephrosis or nephrolithiasis. 2. Findings suggestive of bilateral medical renal disease.
[2023-01-23] MEDS: METOPROLOL TARTRATE 50 MG TAB PO SCH ×2 (06:43→16:48)
[2023-01-23] MEDS: FERROUS SULFATE 325 MG TAB PO SCH (08:33)
[2023-01-23] MEDS: FUROSEMIDE 20 MG TAB PO SCH (08:33)
[2023-01-23] MEDS: POTASSIUM CHLORIDE ER 20 MEQ TAB.ER PO SCH (08:33)
[2023-01-23] MEDS: ESCITALOPRAM 10 MG TAB PO SCH (08:33)
[2023-01-23] MEDS: guaiFENesin 600 MG TABLET.ER PO SCH ×4 (08:33→20:57)
[2023-01-23] MEDS: IPRATROPIUM-ALBUTEROL 3 ML NEB INHALATION SCH ×3 (09:18→22:32)
[2023-01-23 09:56] LABS: INR 3.5 (<1.2)
[2023-01-23 10:07] LABS: Calcium 8.6 mg/dL (8.4-10.2); Potassium 3.3 mmol/L (3.5-5.1)
--- NOTE | 2023-01-23 11:36 | P.PN ---
Subjective Progress Note Date: 01/23/23 HISTORY OF PRESENT ILLNESS: This is a 87-year-old female with a past medical history significant for permanent atrial fibrillation, mitral regurgitation, mitral valve repair, tricuspid valve repair, severe pulmonary hypertension, and congestive heart failure. Patient follows in the office with Dr. Duncan but has not been seen in the office since July 2021. We have been asked to see the patient in consultation for congestive heart failure. Patient examined at the bedside. Georgie gandhi presented to the hospital with a chief complaint of shortness of breath. Patient states that she was recently treated outpatient for pneumonia but her shortness of breath has persisted. She reports a frequent nonproductive cough. She denies any chest pain or pressure. The patient was found to be in acute congestive heart failure. She was started on IV Lasix. The patient continues to report shortness of breath this morning. * EKG reveals ventricular paced rhythm * Chest xray COPD and cardiomegaly with right lower lobe infiltrate and small bilateral pleural effusions. Mild prominence of interstitium. Correlate for CHF exacerbation. * Laboratory data: WBC 7.8. Hemoglobin 12.3. Platelet count 101. INR 2.7. Sodium 138. Potassium 3.9. BUN 37. Creatinine 1.38. Troponin negative 3 * Current home cardiac medications include warfarin 2 mg at night, metoprolol tartrate 50 mg twice a day, and Lasix 20 mg daily * Most recent echocardiogram obtained in February 2022 revealed ejection fraction 55- 60%, moderate to severe pulmonary hypertension, trace MR, moderate to severe mitral stenosis,, severely dilated right ventricle and left atrium. 01/22/2023 Patient examined this morning at the bedside. Patient denies chest pain or pressure. Patient reports improvement in her shortness of breath. She also reports improvement in her cough. She denies any sputum production. She remains on IV Lasix. Creatinine increased today to 1.49. INR 3.0. Echocardiogram obtained revealing ejection fraction 45-50%, severe pulmonary hypertension, moderate aortic regurgitation, moderate tricuspid regurgitation. 01/23/2023 Patient examined this morning at the bedside. Patient denies chest pain or pressure. She reports improvement in her shortness of breath. Patient's cough has almost resolved. She remains on oral Lasix. BUN 54 today. Creatinine 1.58. INR 3.5. PHYSICAL EXAM: VITAL SIGNS: Reviewed. GENERAL: Well-developed in no acute distress. HEENT: Head is normocephalic. Pupils are equal, round. Sclerae anicteric. Mucous membranes of the mouth are moist. Neck supple. No JVD or thyromegaly LUNGS: Respirations even and unlabored. Lungs diminished with rhonchi. Noted improvement in lung sounds and cough. HEART: Telemetry reveals paced rhythm. Regular rate and rhythm. S1 and S2 heard. + systolic murmur noted. ABDOMEN: Soft. Nondistended. Nontender. EXTREMITIES: Normal range of motion. No clubbing or cyanosis. Peripheral puls es intact. No lower extremity edema NEUROLOGIC: Awake and alert. Oriented x 3. ASSESSMENT: Shortness of breath, improved Recent outpatient diagnosis of pneumonia Acute on chronic heart failure with mildly reduced EF, 45% Acute kidney injury Permanent atrial fibrillation, on Warfarin outpatient History of sick sinus syndrome status post pacemaker implantation ([employer]) Severe pulmonary hypertension History of tricuspid and mitral valve repair Coumadin coagulopathy, INR 3.5 PLAN: Decrease Lasix to 20 mg daily. Repeat kidney function in a.m. Daily weights, accurate I&O, and monitoring of kidney function Hold Coumadin tonight secondary to INR 3.5. Pharmacy to dose. Continue to monitor INR Further recommendations pending patient course Nurse practitioner note has been reviewed by physician. Signing provider agrees with the documented findings, assessment, and plan of care. Objective - Vital Signs Vital signs: Vital Signs Temp 98.4 F 01/23/23 08:00 Pulse 60 01/23/23 09:40 Resp 16 01/23/23 08:00 BP 94/49 01/23/23 08:00 Pulse Ox 4 L 01/23/23 09:19 FiO2 Intake & Output 01/22/23 01/23/23 01/23/23 18:59 06:59 18:59 Intake Total 708 118 Output Total 800 Balance -92 118 Intake: Oral 708 118 Output: Urine 800 Other: Voiding Method Bedside Commode Bedside Commode Bedside Commode # Voids 1 # Bowel Movements 1 - Labs CBC & Chem 7: 01/21/23 08:32 01/23/23 09:01 Labs: Abnormal Lab Results - Last 24 Hours (Table) 01/23/23 01/23/23 Range/Units 09:01 09:01 PT 34.0 H (9.0-12.0) sec INR 3.5 H (<1.2) Potassium 3.3 L (3.5-5.1) mmol/L BUN 54 H (7-17) mg/dL Creatinine 1.58 H (0.52-1.04) mg/dL Glucose 183 H (74-99) mg/dL Microbiology - Last 24 Hours (Table) 01/21/23 12:54 Blood Culture - Preliminary Blood No Growth after 24 hours
--- NOTE | 2023-01-23 12:41 | P.PN ---
Subjective Progress Note Date: 01/23/23 87-year-old female seen in consultation today, room 361. She presented to the emergency department on January 20 complaining of shortness of breath. Apparently he been going on for at least 10-14 days prior to admission. Apparently was recently diagnosed with pneumonia, and placed on treatment for that, but did not improve. In addition, she was profoundly weak. She denies any chest pain. She did have worsening lower extremity edema. She has a history of chronic atrial fibrillation, on Coumadin, heart failure, and an artificial valve. In addition, she sees a local family doctor, and a local dried yeast supervisor although she's not been back to the dried yeast supervisor and some time. She denies any fever or chills. There is no chest pain or chest discomfort. She denies any GI or issues. I see her in room 361. She's currently on 4 L of nasal O2. She's not receiving any IV fluids. White count 7.8, hemoglobin 12.3, hematocrit 37.6, and platelet count 101,000. PTT was 26.2 with an INR 2.7. Sodium 138, potassium 3.9, chlorides 103, CO2 26, BUN 37, creatinine 1.38. Testing for influenza, A and B, RSV, and coronavirus were all negative. The patient's N-terminal proBNP was quite elevated at 7030. Chest x-ray shows changes of bilateral infiltrates and small bilateral effusions, with interstitial edema, and cardiomegaly. On today's evaluation of 2022, the patient is being seen for a follow-up. She is currently on 3 L of oxygen by nasal cannula. Mobility is very limited and she is working with physical therapy. She is slightly improved compared to yesterday. Echo cardiac rhythm was done and the patient has a LV ejection fraction of 45-50%. The patient has undergone previous mitral valve repair. She has moderate tricuspid regurgitation, severe pulmonary hypertension, she al so has moderate aortic regurgitation. The INR today is at 3.0 with a PT of 29. Penis 44 with a creatinine of 1.4 and a sodium level is at 139. Pro-calcitonin level is at 0.41. The patient is currently on Lasix 20 mg by mouth twice a day. The patient is on empiric antibiotic coverage with IV Rocephin. On today's evaluation of 01/23/2023, the patient denies having any chest pain. Shortness of breath is improved. Cough is resolving. No other new complaint otherwise for now. The patient's INR therapeutic at 3.5. Creatinine is at 1.58 which is stable. She is afebrile. Using modalities stable. Sodiums of 138, BUN is a 54 with a creatinine of 1.58 and a bicarb level is at 24. Objective - Vital Signs Vital signs: Vital Signs Temp 98.4 F 01/23/23 08:00 Pulse 53 L 01/23/23 12:00 Resp 16 01/23/23 12:00 BP 107/54 01/23/23 12:00 Pulse Ox 98 01/23/23 12:00 FiO2 Intake & Output 01/22/23 01/23/23 01/23/23 18:59 06:59 18:59 Intake Total 708 118 Output Total 800 Balance -92 118 Intake: Oral 708 118 Output: Urine 800 Other: Voiding Method Bedside Commode Bedside Commode Bedside Commode # Voids 1 # Bowel Movements 1 - Exam No acute distress, mild tachypnea, oriented. Currently on 3 L of oxygen nasal cannula HEENT examination is grossly unremarkable. Neck supple. Full range of motion. No adenopathy thyromegaly or neck vein distention. Cardiovascular examination reveals regular rhythm rate. S1-S2 normal. No S3 or S4. No discernible murmur noted. Heart sounds are distant. Lungs reveal scattered bibasilar crackles and rhonchi. No wheezes. Slight dullness on percussion. Breath sounds are equal bilaterally. Abdomen soft bowel sounds are heard. No masses or tenderness. Extremities are intact. No cyanosis or clubbing. 1+ edema is noted. Skin is without rash or lesion. Neurologic examination is brief but nonfocal. - Labs CBC & Chem 7: 01/21/23 08:32 01/23/23 09:01 Labs: Abnormal Lab Results - Last 24 Hours (Table) 01/23/23 01/23/23 Range/Units 09:01 09:01 PT 34.0 H (9.0-12.0) sec INR 3.5 H (<1.2) Potassium 3.3 L (3.5-5.1) mmol/L BUN 54 H (7-17) mg/dL Creatinine 1.58 H (0.52-1.04) mg/dL Glucose 183 H (74-99) mg/dL Microbiology - Last 24 Hours (Table) 01/21/23 12:54 Blood Culture - Preliminary Blood No Growth after 24 hours Assessment and Plan Plan: Shortness of breath, acute on chronic, likely secondary to CHF exacerbation (chronic diastolic dysfunction). Patient also has a systolic heart failure with valvular heart disease with moderate aortic regurgitation and severe pulmonary hypertension. Acute hypoxic respiratory failure currently on 3 L of oxygen by nasal cannula, currently on room air oxygen, improved History of chronic atrial fibrillation. Maintain on anticoagulation warfarin and the patient's INR is therapeutic History of sick sinus syndrome. Status post mitral and tricuspid valve repair Severe pulmonary hypertension secondary to above her heart disease History of congestive heart failure. History of pneumonia. Status post pacemaker implantation. Lifelong nontobacco use. Plan: Wean down FiO2 as tolerated currently on room air oxygen Creatinine is stable Continue diuretics Physical therapy Patient's condition is being optimized and the patient is stable. Pulmonary critical care services will sign off the case
--- NOTE | 2023-01-23 13:27 | XR ---
EXAMINATION TYPE: XR chest 2V DATE OF EXAM: 01/23/2023 COMPARISON: 01/20/2023 HISTORY: Follow-up CHF and pneumonia TECHNIQUE: Frontal and lateral views of the chest are obtained. FINDINGS: There are multiple median sternotomy wires, a dual lead left-sided pacemaker, two cardiac valve rings , and multiple overlying cardiac leads. There is stable moderate to severe cardiomegaly. There is a small right pleural effusion with adjacen t airspace disease, which is similar in appearance when compared to previous examination. There is an unchanged trace left pleural effusion. There is distention of the pulmonary vasculature. There is no pneumothorax. There are increased lung volumes. IMPRESSION: Stable pulmonary edema with small right and trace left pleural effusions. The right basilar airspace disease, likely relates to atelectasis; however, a pneumonia cannot be excluded radiographically.
[2023-01-23 14:07] VITALS: BMI 16.7
[2023-01-23] MEDS ORDERED: POTASSIUM CHLORIDE ER 20 MEQ TAB.ER PO STA (16:59)
--- NOTE | 2023-01-23 17:06 | P.PN ---
Progress Note - Text Progress Note Date: 01/23/23 Chief Complaint: Cough Patient is a very pleasant 87-year-old female, follows with Dr. Eric with a past medical history of CAD with previous mitral valve repair, congestive heart failure, and paroxysmal atrial fibrillation on anticoagulation with Coumadin. Now presents with 3 days of cough short of breath congested. No sputum production. Decrease appetite no fever and chills. Weak tired rundown. Patient is due to her son and uses a walker. Admitted with pneumonia, acute CHF exacerbation. Started on IV Lasix, IV ceftriaxone. January 22: Up in a chair. Feeling short of breath. Less congested. 4 L nasal cannula. Per cardiology Lasix changed over to by mouth. Continue IV ceftriaxone. Discussed with the patient. Start incentive spirometry. January 23: Up in a chair. Feels tired short of breath. Educated patient about incentive spirometry. Spoke at length with the patient's son at the bedside with whom she lives. Did explain to the son that patient's other week and cannot be pushed too much. Rehab definitely seawater capacity intolerances. And then a decision about long-term can be made. Discussed with the rifle case repairer. Total time spent today more than 50 minutes Active Medications Acetaminophen (Acetaminophen Tab 325 Mg Tab) 650 mg PO Q6HR PRN PRN Reason: Mild Pain or Fever > 100.5 Albuterol/Ipratropium (Ipratropium-Albuterol 3 Ml Neb) 3 ml INHALATION RT-TID [facility] Last Admin: 01/23/23 11:54 Dose: Not Given Calcium Carbonate/Glycine (Calcium Carbonate 500 Mg Chewable) 1,000 mg PO Q4HR PRN PRN Reason: Dyspepsia Escitalopram Oxalate (Escitalopram 10 Mg Tab) 10 mg PO DAILY [facility] Last Admin: 01/23/23 08:33 Dose: 10 mg Ferrous Sulfate (Ferrous Sulfate 325 Mg Tab) 325 mg PO DAILY [facility] Last Admin: 01/23/23 08:33 Dose: 325 mg Furosemide (Furosemide 20 Mg Tab) 20 mg PO DAILY [facility] Guaifenesin (Guaifenesin 600 Mg Tablet.Er) 600 mg PO QID [facility] Last Admin: 01/23/23 16:48 Dose: 600 mg Ceftriaxone Sodium 1 gm/ (Sodium Chloride) 50 mls @ 100 mls/hr IVPB Q24HR [facility]; Protocol Last Admin: 01/23/23 08:33 Dose: 100 mls/hr Lactulose (Lactulose 20 Gm/30 Ml Cup) 20 gm PO DAILY PRN PRN Reason: Constipation Lorazepam (Lorazepam 0.5 Mg Tab) 0.5 mg PO Q6HR PRN PRN Reason: Anxiety Last Admin: 01/21/23 17:50 Dose: 0.5 mg Melatonin (Melatonin 3 Mg Tablet) 3 mg PO HS PRN PRN Reason: Insomnia Metoprolol Tartrate (Metoprolol Tartrate 50 Mg Tab) 50 mg PO BID-W/MEALS [facility] Last Admin: 01/23/23 16:48 Dose: Not Given Miscellaneous Information (Warfarin Per Pharmacy) 0 each MISCELLANE DIRECTED PRN PRN Reason: PER PROTOCOL Naloxone HCl (Naloxone 0.4 Mg/Ml 1 Ml Vial) 0.2 mg IV Q2M PRN PRN Reason: Opioid Reversal Ondansetron HCl (Ondansetron 4 Mg/2 Ml Vial) 4 mg IVP Q8HR PRN PRN Reason: Nausea And Vomiting Potassium Chloride (Potassium Chloride Er 20 Meq Tab.Er) 20 meq PO DAILY [facility] Last Admin: 01/23/23 08:33 Dose: 20 meq Potassium Chloride (Potassium Chloride Er 20 Meq Tab.Er) 40 meq PO ONCE STA Stop: 01/23/23 17:00 Prochlorperazine Maleate (Prochlorperazine 10 Mg Tab) 10 mg PO BID PRN PRN Reason: Nausea Warfarin Sodium (Warfarin 0.5 Mg Tab) 0 mg PO ONCE@1800 ONE Stop: 01/23/23 18:01 Last Admin: 01/23/23 16:41 Dose: Not Given Past medical history to include: Atrial fibrillation, CHF, COPD, pacemaker biventricular mitral valve repaired Social history: Lives son. Walker. No smoking Physical examination: VITAL SIGNS: 98.4, 60, 16, 94/49, 97% on 4 L GENERAL: BMI 17.4, up in a chair, tired, decreased muscle mass, prominent bones. EYES: Pupils equal. Conjunctiva normal. HEENT: External appearance of nose and ears normal, oral cavity grossly normal. NECK: JVD not raised; masses not palpable. HEART: First and second heart sounds are normal; no edema. LUNGS: Respiratory rate increased; decreased breath sounds. ABDOMEN: Soft, nontender, liver spleen not palpable, no masses palpable. PSYCH: [Alert and oriented x3; mood and affect tired MUSCULOSKELETAL:No Clubbing/cyanosis;muscles-grossly intact. Muscle muscle mass, prominent bones INVESTIGATIONS, reviewed in the clinical context: January 23: INR 3.5 potassium 3.3 creatinine 1.58 2-D echocardiogram: EF 45-50%. Severe pulmonary hypertension. Pacemaker wire in the right atrial cavity. Moderate aortic regurgitation. Moderate tricuspid regurgitation. January 22: INR 3 potassium 3.6 BUN 44 creatinine 1.49 January 21: White count 7.8 hemoglobin 12.3 platelets 101 INR 2.7 sodium 138 potassium 3.9 BUN 37 creatinine 1.38 Procalcitonin 0.41 EKG tracing personally reviewed by sinus rhythm. Rate 61 Chest x-ray film personally reviewed by me-basilar infiltrate. UA: Unremarkable Assessment and plan: -Pneumonia suspect gram-negative organism.: Improving IV ceftriaxone. Sputum. Blood culture. Mucinex. -Acute on chronic congestive heart exacerbation from diastolic dysfunction EF 45-50% per cardiology.: Better Lasix 20 mg daily. Follow with cardiology -Acute hypoxic respiratory failure from pneumonia, CHF exacerbation Currently on 4 L. 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 -Primary osteoarthritis multiple joints bilaterally Tylenol as needed - chronic medical debility Fall precautions. PT OT -Coumadin monitoring Follow INR -Gait dysfunction from debility, osteoarthritis walker. -DO NOT RESUSCITATE Oral Lasix. Continue ceftriaxone. incentive spirometry. Discussed at length with the patient and the son and [id number]. sr. operations manager. Looking at DC to rehab. Time spent more than 50 minutes
[2023-01-23] MEDS ORDERED: WARFARIN 0.5 MG TAB PO ONE (18:00)
[2023-01-23] MEDS: ACETAMINOPHEN TAB 325 MG TAB PO PRN (21:03)
[2023-01-24] MEDS: METOPROLOL TARTRATE 50 MG TAB PO SCH (06:34)
[2023-01-24] MEDS: IPRATROPIUM-ALBUTEROL 3 ML NEB INHALATION SCH ×2 (08:53→12:27)
[2023-01-24] MEDS ORDERED: FUROSEMIDE 20 MG TAB PO SCH (09:00)
[2023-01-24] MEDS: POTASSIUM CHLORIDE ER 20 MEQ TAB.ER PO SCH (09:38)
[2023-01-24] MEDS: FERROUS SULFATE 325 MG TAB PO SCH (09:38)
[2023-01-24] MEDS: ESCITALOPRAM 10 MG TAB PO SCH (09:39)
[2023-01-24] MEDS: guaiFENesin 600 MG TABLET.ER PO SCH ×2 (09:40→13:01)
[2023-01-24 10:28] LABS: Calcium 8.6 mg/dL (8.4-10.2); Potassium 4.6 mmol/L (3.5-5.1)
[2023-01-24 10:34] LABS: INR 3.8 (<1.2); Prothrombin Time 37.1 sec (9.0-12.0)
[2023-01-24] MEDS: ACETAMINOPHEN TAB 325 MG TAB PO PRN (11:13)
[2023-01-24 12:08] VITALS: TEMP 97.4
[2023-01-24 12:11] VITALS: RESP 20
--- NOTE | 2023-01-24 12:31 | P.PN ---
Subjective Progress Note Date: 01/24/23 HISTORY OF PRESENT ILLNESS: This is a 87-year-old female with a past medical history significant for permanent atrial fibrillation, mitral regurgitation, mitral valve repair, tricuspid valve repair, severe pulmonary hypertension, and congestive heart failure. Patient follows in the office with Dr. Duncan but has not been seen in the office since July 2021. We have been asked to see the patient in consultation for congestive heart failure. Patient examined at the bedside. Georgie gandhi presented to the hospital with a chief complaint of shortness of breath. Patient states that she was recently treated outpatient for pneumonia but her shortness of breath has persisted. She reports a frequent nonproductive cough. She denies any chest pain or pressure. The patient was found to be in acute congestive heart failure. She was started on IV Lasix. The patient continues to report shortness of breath this morning. * EKG reveals ventricular paced rhythm * Chest xray COPD and cardiomegaly with right lower lobe infiltrate and small bilateral pleural effusions. Mild prominence of interstitium. Correlate for CHF exacerbation. * Laboratory data: WBC 7.8. Hemoglobin 12.3. Platelet count 101. INR 2.7. Sodium 138. Potassium 3.9. BUN 37. Creatinine 1.38. Troponin negative 3 * Current home cardiac medications include warfarin 2 mg at night, metoprolol tartrate 50 mg twice a day, and Lasix 20 mg daily * Most recent echocardiogram obtained in February 2022 revealed ejection fraction 55- 60%, moderate to severe pulmonary hypertension, trace MR, moderate to severe mitral stenosis,, severely dilated right ventricle and left atrium. 01/22/2023 Patient examined this morning at the bedside. Patient denies chest pain or pressure. Patient reports improvement in her shortness of breath. She also reports improvement in her cough. She denies any sputum production. She remains on IV Lasix. Creatinine increased today to 1.49. INR 3.0. Echocardiogram obtained revealing ejection fraction 45-50%, severe pulmonary hypertension, moderate aortic regurgitation, moderate tricuspid regurgitation. 01/23/2023 Patient examined this morning at the bedside. Patient denies chest pain or pressure. She reports improvement in her shortness of breath. Patient's cough has almost resolved. She remains on oral Lasix. BUN 54 today. Creatinine 1.58. INR 3.5. 01/24/2023 Patient examined this morning at the bedside. Patient continues to report shortness of breath. Patient states she had an episode of chest discomfort yesterday that was resolved with Tylenol. She denies any further episodes of chest pain or pressure. She remains on oral Lasix. BUN 54. Creatinine 1.59. Patient's INR remains elevated at 3.8. PHYSICAL EXAM: VITAL SIGNS: Reviewed. GENERAL: Well-developed in no acute distress. HEENT: Head is normocephalic. Pupils are equal, round. Sclerae anicteric. Mucous membranes of the mouth are moist. Neck supple. No JVD or thyromegaly LUNGS: Respirations even and unlabored. Lungs diminished HEART: Telemetry reveals paced rhythm. Regular rate and rhythm. S1 and S2 heard. + systolic murmur noted. ABDOMEN: Soft. Nondistended. Nontender. EXTREMITIES: Normal range of motion. No clubbing or cyanosis. Peripheral pul ses intact. No lower extremity edema NEUROLOGIC: Awake and alert. Oriented x 3. ASSESSMENT: Shortness of breath, improved Recent outpatient diagnosis of pneumonia Acute on chronic heart failure with mildly reduced EF, 45% Acute kidney injury Permanent atrial fibrillation, on Warfarin outpatient History of sick sinus syndrome status post pacemaker implantation ([employer]) Severe pulmonary hypertension History of tricuspid and mitral valve repair Coumadin coagulopathy, INR 3.8 PLAN: Continue oral Lasix 20 mg daily. Repeat kidney function in a.m. Daily weights, accurate I&O, and monitoring of kidney function Hold Coumadin tonight secondary to INR 3.5. Pharmacy to dose. Continue to monitor INR Further recommendations pending patient course Nurse practitioner note has been reviewed by physician. Signing provider agrees with the documented findings, assessment, and plan of care. Objective - Vital Signs Vital signs: Vital Signs Temp 97.4 F L 01/24/23 12:00 Pulse 60 01/24/23 12:00 Resp 20 01/24/23 12:10 BP 119/53 01/24/23 12:00 Pulse Ox 96 01/24/23 12:10 FiO2 Intake & Output 01/23/23 01/24/23 01/24/23 18:59 06:59 18:59 Intake Total 118 10 140 Output Total 300 Balance 118 -290 140 Weight 39 kg 37.5 kg Intake: IV 10 Invasive Line 1 10 Oral 118 140 Output: Urine 300 Other: Voiding Method Bedside Commode Bedside Commode Bedside Commode # Voids 1 1 # Bowel Movements 1 1 - Labs CBC & Chem 7: 01/21/23 08:32 01/24/23 09:32 Labs: Abnormal Lab Results - Last 24 Hours (Table) 01/24/23 01/24/23 Range/Units 09:32 09:32 PT 37.1 H (9.0-12.0) sec INR 3.8 H (<1.2) BUN 54 H (7-17) mg/dL Creatinine 1.59 H (0.52-1.04) mg/dL Microbiology - Last 24 Hours (Table) 01/21/23 12:54 Blood Culture - Preliminary Blood No Growth after 48 hours
[2023-01-24 13:16] VITALS: PULSE 60
--- NOTE | 2023-01-24 14:01 | P.DS ---
Providers Date of admission: 01/20/23 17:59 Expected date of discharge: 01/24/23 Attending physician: Cuate Carroll Consults: 01/20/23 17:59 Consult Physician Routine Consulting Provider: [facility] Consult Reason/Comments: chf Do you want consulting provider notified?: Yes 01/21/23 08:22 Consult Physician Routine Consulting Provider: Celeste Garcia Consult Reason/Comments: CHF, possible pneumonia Do you want consulting provider notified?: Yes Primary care physician: Stated None Hospital Course: Chief Complaint: Cough Patient is a very pleasant 87-year-old female, follows with Dr. Eric with a past medical history of CAD with previous mitral valve repair, congestive heart failure, and paroxysmal atrial fibrillation on anticoagulation with Coumadin. Now presents with 3 days of cough short of breath congested. No sputum production. Decrease appetite no fever and chills. Weak tired rundown. Patient is due to her son and uses a walker. Admitted with pneumonia, acute CHF exacerbation. Started on IV Lasix, IV ceftriaxone. January 22: Up in a chair. Feeling short of breath. Less congested. 4 L nasal cannula. Per cardiology Lasix changed over to by mouth. Continue IV ceftriaxone. Discussed with the patient. Start incentive spirometry. January 23: Up in a chair. Feels tired short of breath. Educated patient about incentive spirometry. Spoke at length with the patient's son at the bedside with whom she lives. Did explain to the son that patient's other week and cannot be pushed too much. Rehab definitely seawater capacity intolerances. And then a decision about long-term can be made. Discussed with the correctional casework specialist. Total time spent today more than 50 minutes January 24: Diet. Tolerating some diet. Breathing a bit better. Spoke to the family the bedside. Discharged to [facility]. Questions answered. Prognosis guarded. Discussion and discharge planning more than 35 minutes Past medical history to include: Atrial fibrillation, CHF, COPD, pacemaker biventricular mitral valve repaired Social history: Lives son. Walker. No smoking Physical examination: VITAL SIGNS: 97.4, 56, 20, 119/53, 96% on 2 L GENERAL: BMI 17.4, up in a chair, tired, decreased muscle mass, prominent bones. EYES: Pupils equal. Conjunctiva normal. HEENT: External appearance of nose and ears normal, oral cavity grossly normal. NECK: JVD not raised; masses not palpable. HEART: First and second heart sounds are normal; no edema. LUNGS: Respiratory rate increased; decreased breath sounds. ABDOMEN: Soft, nontender, liver spleen not palpable, no masses palpable. PSYCH: [Alert and oriented x3; mood and affect tired MUSCULOSKELETAL:No Clubbing/cyanosis;muscles-grossly intact. Muscle muscle mass, prominent bones INVESTIGATIONS, reviewed in the clinical context: January 24: INR 3.8 BUN 54 creatinine 1.59 January 23: INR 3.5 potassium 3.3 creatinine 1.58 2-D echocardiogram: EF 45-50%. Severe pulmonary hypertension. Pacemaker wire in the right atrial cavity. Moderate aortic regurgitation. Moderate tricuspid regurgitation. January 22: INR 3 potassium 3.6 BUN 44 creatinine 1.49 January 21: White count 7.8 hemoglobin 12.3 platelets 101 INR 2.7 sodium 138 potassium 3.9 BUN 37 creatinine 1.38 Procalcitonin 0.41 EKG tracing personally reviewed by sinus rhythm. Rate 61 Chest x-ray film personally reviewed by me-basilar infiltrate. UA: Unremarkable Assessment and plan: -Pneumonia suspect gram-negative organism.: Improving IV ceftriaxone. -Completed -Acute on chronic congestive heart exacerbation from diastolic dysfunction EF 45-50% per cardiology.: Better Lasix 20 mg daily. Follow with cardiology -Acute hypoxic respiratory failure from pneumonia, CHF exacerbation: Better Currently on 2l. 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 59 -Paroxysmal atrial fibrillation, currently sinus rhythm Chronically on Coumadin. 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 -Primary osteoarthritis multiple joints bilaterally Tylenol as needed - chronic medical debility Fall precautions. PT OT -Coumadin monitoring Follow INR -Gait dysfunction from debility, osteoarthritis walker. -DO NOT RESUSCITATE [facility] Plan - Discharge Summary Discharge Rx Participant: No New Discharge Prescriptions: New Lactulose [Cephulac] 20 gm PO DAILY PRN ml PRN Reason: Constipation Acetaminophen Tab [Tylenol] 650 mg PO Q6HR PRN tab PRN Reason: Mild Pain Or Fever > 100.5 Ipratropium-Albuterol Nebulize [Duoneb 0.5 mg-3 mg/3 ml Soln] 3 ml INHALATION RT-TID each Melatonin 3 mg PO HS PRN tab PRN Reason: Insomnia Continue Escitalopram [Lexapro] 10 mg PO DAILY Ferrous Sulfate [Iron (65 MG Elemental)] 325 mg PO DAILY Potassium Chloride ER [K-Dur 20] 20 meq PO DAILY Albuterol Inhaler [Ventolin Hfa Inhaler] 2 puff INHALATION RT-QID PRN PRN Reason: Shortness Of Breath Furosemide [Lasix] 20 mg PO DAILY Metoprolol Tartrate [Lopressor] 50 mg PO BID-W/MEALS Prochlorperazine [Compazine] 10 mg PO BID PRN PRN Reason: Nausea Changed Warfarin [Coumadin] 1 mg PO HS@1800 #0 Discharge Medication List Albuterol Inhaler [Ventolin Hfa Inhaler] 2 puff INHALATION RT-QID PRN 01/20/23 [History] Escitalopram [Lexapro] 10 mg PO DAILY 01/20/23 [History] Ferrous Sulfate [Iron (65 MG Elemental)] 325 mg PO DAILY 01/20/23 [History] Furosemide [Lasix] 20 mg PO DAILY 01/20/23 [History] Metoprolol Tartrate [Lopressor] 50 mg PO BID-W/MEALS 01/20/23 [History] Potassium Chloride ER [K-Dur 20] 20 meq PO DAILY 01/20/23 [History] Prochlorperazine [Compazine] 10 mg PO BID PRN 01/20/23 [History] Acetaminophen Tab [Tylenol] 650 mg PO Q6HR PRN tab 01/24/23 [Rx] Ipratropium-Albuterol Nebulize [Duoneb 0.5 mg-3 mg/3 ml Soln] 3 ml INHALATION RT-TID each 01/24/23 [Rx] Lactulose [Cephulac] 20 gm PO DAILY PRN ml 01/24/23 [Rx] Melatonin 3 mg PO HS PRN tab 01/24/23 [Rx] Warfarin [Coumadin] 1 mg PO HS@1800 #0 01/24/23 [Rx] Follow up Appointment(s)/Referral(s): [facility], [NON-STAFF] - Oni Ochoa MD [STAFF PHYSICIAN] - 2 Weeks Boy Eric DO [STAFF PHYSICIAN] - 1 Week Celeste Garcia MD [STAFF PHYSICIAN] - 2 Weeks
[2023-01-24 15:55] VITALS: BP 109/49
[2023-01-24] MEDS ORDERED: WARFARIN 0.5 MG TAB PO ONE (18:00)
== END 2023-01-24 17:01 | DRG 177 ==
LOC: EC 13:18 → 3SCARD 17:59
PROVIDERS: ADMIT Hospitalist; ATTEND Hospitalist
DX: J15.6 Pneumonia due to other Gram-negative bacteria (principal); E43 Unspecified severe protein-calorie malnutrition; J96.01 Acute respiratory failure with hypoxia; I50.43 Acute on chronic combined systolic (congestive) and diastolic (congestive) heart failure; I13.0 Hypertensive heart and chronic kidney disease with heart failure and stage 1 through stage 4 chronic kidney disease, or unspecified chronic kidney disease; N17.9 Acute kidney failure, unspecified; J44.0 Chronic obstructive pulmonary disease with (acute) lower respiratory infection; I48.21 Permanent atrial fibrillation; Z68.1 Body mass index [BMI] 19.9 or less, adult; I27.29 Other secondary pulmonary hypertension; I49.5 Sick sinus syndrome; L89.152 Pressure ulcer of sacral region, stage 2; K74.69 Other cirrhosis of liver; N18.30 Chronic kidney disease, stage 3 unspecified; Z66 Do not resuscitate; Z20.822 Contact with and (suspected) exposure to COVID-19; Z28.310 Unvaccinated for COVID-19; F32.9 Major depressive disorder, single episode, unspecified; I25.10 Atherosclerotic heart disease of native coronary artery without angina pectoris; F41.9 Anxiety disorder, unspecified; K57.30 Diverticulosis of large intestine without perforation or abscess without bleeding; M15.9 Polyosteoarthritis, unspecified; I08.3 Combined rheumatic disorders of mitral, aortic and tricuspid valves; K59.00 Constipation, unspecified; G47.00 Insomnia, unspecified; R26.9 Unspecified abnormalities of gait and mobility; R79.1 Abnormal coagulation profile; T45.515A Adverse effect of anticoagulants, initial encounter; Z79.01 Long term (current) use of anticoagulants; Z79.899 Other long term (current) drug therapy; Z87.01 Personal history of pneumonia (recurrent); Z95.0 Presence of cardiac pacemaker; Z95.2 Presence of prosthetic heart valve; Z71.3 Dietary counseling and surveillance; Z88.6 Allergy status to analgesic agent; Z88.2 Allergy status to sulfonamides; Z88.8 Allergy status to other drugs, medicaments and biological substances
CPT/HCPCS: 36415; 71046; 76770; 80048; 80053; 81003; 83605; 83735; 83880; 84145; 84484; 85025; 85610; 85730; 87040; 87324; 87636; 93005; 93306; 94640; 94760; 96374; 99285